=== PATIENT | male | born 1945 | race Caucasian/White ===

== ENCOUNTER → 2016-07-09 | Day surgery (SDC) | payer OTHER ==
[2016-07-04 07:52] VITALS: BMI 24.0
[~2016-07-09] VITALS: Ht 180.3 cm; Wt 79.1 kg
[~2016-07-09] MED LIST: ALL100 PO; ASPI81TA28 PO; ATOR-26 PO; FINA5TAB PO; GLC500 PO; GLIM4TAB2 PO; HYG/25 PO; LIDOCAINE HCL 2% 2 ML VIAL (20MG/ML) ONE; LISI40TA PO; METO100T44 PO; NTRGSL/4 UT; OMEP20CA9 PO; PROPOFOL IV EMULSION 10 MG/ML 20 ML VIAL IV ONE; SODIUM CHLORIDE 0.9% 500ML 500 ML IV ONE; TAMS0.4C38 PO
[2016-07-09 10:07] VITALS: Ht 180.3 cm; Wt 79.1 kg
--- NOTE | 2016-07-09 10:10 | Endo History and Physical ---
History & Physical Date of Service: July 09, 2016. Chief Complaint: Referring Physician: History of Present Illness 71 yo presenting for surveillance colonoscopy-no issues related to GI illnesses. Past Surgical History Hx Cardiac Surgery: Yes (HEART CATH-NO STENTS, RT/LEFT CAROTID ENDARTERECTOMY) Hx Internal Defibrillator: No Hx Pacemaker: No Hx Abdominal Surgery: No Hx of Implantable Prosthesis: No Hx Post-Op Nausea and Vomiting: No Hx Cancer Surgery: No Hx Thoracic Surgery: No Hx Orthopedic: No Hx Urinary Tract Surgery: No Family History None Social History Smoking Status: Former Smoker Hx Substance Use: No Hx Alcohol Use: No Allergies Coded Allergies: Aspirin (Verified Adverse Reaction, Mild, STOMACH UPSET, 07/04/16) No Known Allergies (Verified , 07/04/16) Current Medications Reported Home Medications Medications Dose Route/Sig Max Daily Dose Days Date Category Toprol-Xl (Metoprolol Succinate) 100 Mg Tabcr 150 Mg PO QAM 07/04/16 Reported Prilosec (Omeprazole) 20 Mg Cap 20 Mg PO DAILY PRN 07/04/16 Reported Nitrostat (Nitroglycerin) 0.4 Mg Tab 0.4 Mg UT PRN 07/04/16 Reported Glimepiride 4 Mg Tab 1 Tab PO BID 90 07/04/16 Reported Zestril (Lisinopril) 40 Mg Tab 40 Mg PO QAM 07/04/16 Reported Flomax (Tamsulosin Hcl) 0.4 Mg Cap 0.4 Mg PO QAM 07/04/16 Reported Proscar (Finasteride) 5 Mg Tab 5 Mg PO QAM 07/04/16 Reported Aspirin Ec (Aspirin) 81 Mg Tab 81 Mg PO QAM 10/04/14 Reported Lipitor (Atorvastatin Calcium) 80 Mg Tab 80 Mg PO HS 10/04/14 Reported Hygroton (Chlorthalidone) 25 Mg Tab 25 Mg PO QAM 10/04/14 Reported Zyloprim * (Allopurinol) 100 Mg Tab 100 Mg PO QAM 12/02/07 Reported Glucophage * (Metformin HCl) 1,000 Mg Tab 1,000 Mg PO BID 12/02/07 Reported Vital Signs Weight (Kilograms): 79.09 Height (Feet): 5 Height (Inches): 11 Physical Exam General Appearance: WD/WN, no apparent distress Respiratory/Chest: Respiratory effort: no dyspnea Auscultation: breath sounds normal, CTA except as noted, no wheezing Cardiovascular: Apical Impulse: not displaced Heart Auscultation: RRR, normal S1, normal S2 Abdomen: Bowel Sounds: normal Inspection & Palpation: soft, non-distended Assessment and Plan 71 yo presenting for f/u colonoscopy
--- NOTE | 2016-07-09 11:08 | GI REPORT ---
Procedure Date: 07/09/2016 10:29 AM Procedure: Colonoscopy Indications: High risk colon cancer surveillance: Personal history of colonic polyps Medicines: General Anesthesia Complications: No immediate complications. Estimated blood loss: None. Estimated Blood Loss: Estimated blood loss: none. Procedure: Pre-Anesthesia Assessment: - Pre-Anesthesia Assessment: - Prior to the procedure, a History and Physical was performed, and patient medications, allergies and sensitivities were reviewed. The patient's tolerance of previous anesthesia was reviewed. Please see [employer] for complete details. - The risks and benefits of the procedure and the sedation options and risks were discussed with the patient. All questions were answered and informed consent was obtained. - Patient identification and proposed procedure were verified prior to the procedure by the physician and the nurse. The procedure was verified in the pre-procedure area in the procedure room. After obtaining informed consent, the endoscope was passed carefully and meticuously under direct vision and only advanced when the lumen was clearly identified, C02 insuflation was utilized throughout the entirity of the procedure. Throughout the procedure, the patient's blood pressure, pulse, and oxygen saturations were monitored continuously. After I obtained informed consent, the scope was passed under direct vision. Throughout the procedure, the patient's blood pressure, pulse, and oxygen saturations were monitored continuously. The scope was introduced through the anus and advanced to the terminal ileum, with identification of the appendiceal orifice and IC valve. The colonoscopy was performed without difficulty. The patient tolerated the procedure well. The quality of the bowel preparation was good. Findings: Three sessile polyps were found in the ascending colon. The polyps were 3 to 5 mm in size. These polyps were removed with a cold snare. Resection and retrieval were complete. Three sessile polyps were found in the transverse colon. The polyps were 2 to 4 mm in size. These polyps were removed with a cold snare. Resection and retrieval were complete. A 3 mm polyp was found in the sigmoid colon. The polyp was sessile. The polyp was removed with a cold snare. Resection and retrieval were complete. Internal hemorrhoids were found during retroflexion. Multiple small-mouthed diverticula were found in the sigmoid colon. The exam was otherwise without abnormality on direct and retroflexion views. Impression: - Three 3 to 5 mm polyps in the ascending colon, removed with a cold snare. Resected and retrieved. - Three 2 to 4 mm polyps in the transverse colon, removed with a cold snare. Resected and retrieved. - One 3 mm polyp in the sigmoid colon, removed with a cold snare. Resected and retrieved. - Internal hemorrhoids. - Diverticulosis in the sigmoid colon. - The examination was otherwise normal on direct and retroflexion views. Recommendation: - Discharge patient to home (with escort). - Await pathology results. - Repeat colonoscopy in 3 years for surveillance based on pathology results. - Return to referring physician as previously scheduled. Damian Cee MD 07/09/2016 11:08:02 AM This report has been signed electronically. Note Initiated On: 07/09/2016 10:29 AM I attest to the content of the Intraoperative Record and orders documented therein, exceptions below
--- NOTE | 2016-07-09 11:09 | Discharge Instructions ---
Endoscopy Patient Instructions Date / Procedure(s) Performed July 09, 2016. Colonoscopy Allergy Information Coded Allergies: Aspirin (Verified Adverse Reaction, Mild, STOMACH UPSET, 07/04/16) No Known Allergies (Verified , 07/04/16) Discharge Date / Findings July 09, 2016. Multiple small polyps-all removed Medication Instructions Stopped Medication(s): METFORMIN LAST DOSE 07/06/16 Provider Instructions Activity Restrictions - No exercising or heavy lifting for 24 hours. - Do not drink alcohol the day of the procedure. - Do not drive a car or operate machinery until the day after the procedure. - Do not make any important decisions or sign important papers in 24 hours after the procedure. Following Day: - Return to full activity which may include returning to work/school. Diet Start your diet with liquids and light foods (jello, soup, juice, toast). Then eat your usual diet if not nauseated. Treatment For Common After Affects For mild abdominal pain, bloating, or excessive gas: - Rest - Eat lightly - Lie on right side Follow-Up Information Follow-up with DR ARELI VALENTINO as scheduled Anesthesia Information What You Should Know You have had a procedure that required some medicine to reduce anxiety and discomfort. This treatment is called moderate sedation. After receiving the treatment, you may be sleepy, but you will be able to breathe on your own. The effects of the treatment may last for several hours. Follow these instructions along with Activity/Diet recommendations noted above: * Do NOT do anything where dizziness or clumsiness would be dangerous. * Rest quietly at home today, then you can be up and about tomorrow. * Have a responsible person stay with you the rest of today. * You may have had an I.V. today. If so, you may take the dressing off later today. Recommendations Call your doctor if: * Trouble breathing * Continuous vomiting for more than 24 hours * Temperature above 101 degrees * Severe abdominal pain or bloating * Pain not relieved by pain medicine ordered * There is increased drainage or redness from any incision * A large amount of rectal bleeding greater than 2-3 tablespoons. (If you had a polyp/s removed or have hemorrhoids, a small amount of blood - from the rectum is to be expected.) * You have any unanswered questions or concerns. IN THE EVENT OF A SERIOUS EMERGENCY, GO TO THE NEAREST EMERGENCY ROOM Your discharge instructions were prepared by provider Damian Cee. Patient Instructions Signature Page Varinder Grace Patient (or Guardian) Signature/Date: I have read and understand the instructions given to me by my caregivers. Caregiver/RN/Doctor Signature/Date: The above-named patient and/or guardian has received patient instructions on this date. + Original Patient Signature Page (only) stays with chart. Please make copy for patient.
--- NOTE | 2016-07-09 11:31 | Anesthesiology Progress Note ---
Anesthesia Post Op Note Date & Time July 09, 2016 at 11:31 Vital Signs Pain Intensity: 0 Vital Signs Past 12 Hours Date Time Temp Pulse Resp B/P Pulse Ox O2 Delivery O2 Flow Rate FiO2 07/09/16 11:07 75 16 106/60 98 Room Air 07/09/16 10:15 36.7 85 20 179/82 98 Room Air Notes Mental Status: alert / awake / arousable, participated in evaluation Pt Amnestic to Procedure: Yes Nausea / Vomiting: adequately controlled Pain: adequately controlled Airway Patency, RR, SpO2: stable & adequate BP & HR: stable & adequate Hydration State: stable & adequate Anesthetic Complications: no major complications apparent
[2016-07-09 11:45] VITALS: BP 113/62; PULSE 76; O2SAT 95
== END | disposition home or self-care (01) ==
LOC: C.GI 09:39
PROVIDERS: ATTEND Internal Medicine
DX: Z12.11 Encounter for screening for malignant neoplasm of colon (principal); D12.2 Benign neoplasm of ascending colon; D12.3 Benign neoplasm of transverse colon; D12.5 Benign neoplasm of sigmoid colon; K64.8 Other hemorrhoids; K57.90 Diverticulosis of intestine, part unspecified, without perforation or abscess without bleeding; Z87.891 Personal history of nicotine dependence; Z86.010 Personal history of colon polyps

== ENCOUNTER 2024-04-30 16:09 | Inpatient (IN) ==
--- NOTE | 2024-04-30 16:45 | XRay Report ---
EXAM: Radiograph of the Chest 1 View INDICATION: Weakness TECHNIQUE: Frontal view of the chest. COMPARISON: No relevant prior studies available. FINDINGS: Lungs and pleural spaces: No consolidation or pulmonary edema. No pleural effusion or pneumothorax. Heart: Shape and configuration within normal limits allowing for technique. Mediastinum: Normal contour. Bones/joints: No fracture, erosion or dislocation. Soft tissues: No abnormality noted. No radiopaque foreign body noted. Vasculature: Ectatic calcified aorta. Upper abdomen: 1.4 cm nonspecific calcification noted in the right upper abdomen. IMPRESSION: 1. No acute cardiopulmonary disease. 2. Nonspecific calcification projects in the right upper quadrant. ACT 112: Negative or not required by law. Electronically signed by Xi Kumar 04-30-2024 4:45 PM
[2024-04-30 17:55] LABS: Basophils # (auto) 0.03 K/uL (0.00-0.20); Basophils % (auto) 0.3 %; Eosinophils # (auto) 0.02 K/uL (0.00-0.50); Eosinophils % (auto) 0.2 %; Hematocrit (blood only) 36.1 % (42.0-52.0); Hemoglobin 11.9 g/dl (14.0-18.0); Immature Granulocytes # (auto) 0.08 K/uL (0.01-0.20); Immature Granulocytes % (auto) 0.8 %; Lymphocytes # (auto) 0.79 K/uL (1.20-3.40); Lymphocytes % (auto) 8.2 %; Mean Corpuscular Volume 87.8 fL (80.0-100.0); Monocytes # (auto) 1.04 K/uL (0.11-0.59); Monocytes % (auto) 10.8 %; Neutrophils # (auto) 7.67 K/uL (1.40-6.50); Neutrophils % (auto) 79.7 %; Platelet Count 174 K/uL (130-400); RDW Coefficient of Variation 14.6 % (11.5-14.5); RDW Standard Deviation 47.1 fL (36.4-46.3); Red Blood Count 4.11 M/uL (4.70-6.10); White Blood Count 9.63 K/ul (4.8-10.8)
[2024-04-30 18:12] LABS: Alanine Aminotransferase 15 U/L (7-52); Albumin Globulin Ratio 1.2 (0.9-2); Albumin Level 3.8 gm/dl (3.4-5.0); Alkaline Phosphatase 101 U/L (34-104); Anion Gap 10 (3-11); Aspartate Aminotransferase 18 U/L (13-39); Bilirubin,Total 0.6 mg/dl (0.2-1.0); Blood Urea Nitrogen 51 mg/dl (6-23); Calcium 9.1 mg/dl (8.6-10.3); Carbon Dioxide 29 mmol/L (21-32); Chloride 96 mmol/L (98-107); Globulin 3.3 gm/dl (2.5-4.0); Glucose 394 mg/dl (70-99(Fasting)); Magnesium 1.6 mg/dl (1.7-2.4); Potassium 3.8 mmol/L (3.5-5.1); Sodium 135 mmol/L (136-145); Total Protein 7.1 gm/dl (6.0-8.3)
[2024-04-30 18:14] LABS: Troponin I High Sensitivity 12.7 pg/ml (0-20)
[2024-04-30 18:19] LABS: INR 1.1 (0.9-1.1); Partial Thromboplastin Time 26 Seconds (21-31); Prothrombin Time 11.5 Seconds (9.0-12.0)
[2024-04-30 18:24] LABS: Thyroid Stimulating Hormone 1.687 uIu/ml (0.300-4.500)
--- NOTE | 2024-04-30 19:03 | Emergency Department Note ---
Impression & Plan Weakness, Falls, Hyperglycemia due to type 2 diabetes mellitus, CKD (chronic kidney disease) ED Provider Note Provider: Lito Gurrola MD CHIEF COMPLAINT: Weakness and falls HISTORY OF PRESENT ILLNESS: Patient is a 79-year-old gentleman history of CKD, gout, diabetes, hypertension presenting here today with after multiple falls. Been having decline recently fell last week. 3 times fell today according to the difficulty getting up from a chair. Denies striking his head or loss of consciousness. Denies syncope. States he just felt weak and went to the ground. came over work and the patient could not get out of the chair he was in. PCP is ordered physical therapy with this can start for several weeks. Reports generalized weakness but no pain or shortness of breath or high fevers. No strikes to the head reported and no neck pain reported. He does follow with nephrology but not urinating much. reports the patient does not eat that well. No muscle cramps reported. Patient denies any dizziness or vertigo. Denies URI symptoms. PAST MEDICAL HISTORY: As noted above MEDICATIONS: Reviewed home medications SOCIAL HISTORY: lives at home PHYSICAL EXAM: GENERAL: alert and oriented in no acute distress on stretcher Head: normocephalic and atraumatic EYES: No injection, discharge or icterus. PERRL, EOMI. NECK: Trachea midline. Supple without posterior midline tenderness ENT: Mucous membranes pink and moist. LUNGS: Airway patent. No retractions. Breath sounds clear with good air entry bilaterally. HEART: Regular tachycardic rate and rhythm. No chest wall tenderness ABDOMEN: Soft and non-tender, without guarding or rebound. Stable pelvis without significant flank tenderness. SKIN: Acyanotic, warm, dry, without rashes EXTREMITIES: Without swelling, tenderness or deformity NEUROLOGICAL: No focal deficits moving all extremities. No aphasia. No facial droop or slurred speech. Normal strength and tone in the extremities. Sensation to gross touch normal. Able with some assistance to pivot and transfer from wheelchair to bed but somewhat unsteady. EK bpm sinus tachycardia. No PVC or PAC. No acute ST segment elevation or depression with a QTc of 441. CONTINUOUS CARDIAC MONITORING: was ordered and showed a heart rate of 90s-100s bpm in normal sinus rhythm to sinus tachycardia GCS 15. Patient's laboratory studies and imaging reviewed. Differential includes Infection, dehydration, metabolic abnormality, hypo/hyperglycemia, electrolyte disturbance, anemia, hypoxia, cardiac sources, intracerebral event, toxicologic, neurologic, as well as other pathologies. IMPRESSION/MEDICAL DECISION MAKING: From triage basic blood work ordered. No severe anemia or significant leukocytosis. No severe electrolyte abnormalities although creatinine is elevated at 2 today from baseline around 1.7 according to [facility] medical record. Very slight hypomagnesemia of 1.6. Normal troponin TSH and LFTs. Chest x-ray from triage without significant findings acutely noted by radiology report. Not hypoxic here. Chest x-ray completed reviewed by myself and interpreted as well as radiologist without findings of acute pneumonia pneumothorax or fluid overload. Mildly tachycardic. Do not see any clear infectious source although urinalysis is ordered and pending at this time. COVID flu RSV test is completed but denies URI symptoms. Will complete a CT of the head given the multiple falls and generalized weakness but does not seem that focal. CT head report from radiology without acute findings noted. Denies striking his head. On low-dose aspirin but no other significant blood thinners. Has been hyperglycemic. This was poor him take maybe leading to a bit of dehydration. Again given some IV fluids here. Given his weakness and multiple falls even just today while he does not have significant traumatic injury at this time, discussed with him and his staying for further evaluation here in physical therapy. Given IV hydration. No evidence of compartment syndrome or rhabdomyolysis. Patient agreeable. Hospitalist team contacted. DIAGNOSIS: Weakness, falls, hyperglycemia secondary to type 2 diabetes DISPOSITION: Hospitalist will evaluate Patient was agreeable with this plan. 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 JOSEPH Family History Mother Family history of diabetes mellitus Other No family history of adverse response to anesthesia Social History Smoking Status: Never smoker Cigarettes Per Day: 1997; Second Hand Exposure: No; Do You Dip or Chew Tobacco: No; Hx Alcohol Use: No Hx Substance Use: No Preferred Language: Uzbek Communication Ability: Effective [place] Cutter Operator Required: No Beliefs That Will Affect Care: None Current Living Situation: Spouse Feels Safe at Home: Yes Assistive Devices: Denture - Upper and Glasses Allergies Allergies Allergy/AdvReac Type Severity Reaction Status Date / Time aspirin AdvReac Mild STOMACH Verified 11/15/21 08:03 UPSET Home Meds Home Medications Medication Instructions Recorded Confirmed allopurinol 100 mg tablet 100 mg PO QAM 11/13/18 11/15/21 aspirin 81 mg tablet,delayed 81 mg PO QAM 11/13/18 11/15/21 release atorvastatin 80 mg tablet 80 mg PO HS 11/13/18 11/15/21 chlorthalidone 25 mg tablet 25 mg PO QAM 11/13/18 11/15/21 glipizide 5 mg tablet 5 mg PO QAM 11/13/18 11/15/21 lisinopril 40 mg tablet 40 mg PO QAM 11/13/18 11/15/21 metformin 1,000 mg tablet 1,000 mg PO BID 11/13/18 11/15/21 metoprolol succinate 100 mg 150 mg PO QAM 11/13/18 11/15/21 tablet,extended release 24 hr Previous Rx's Medication Instructions Recorded sodium sul 1.479 gram-potas ch See Rx Instructions PO .COMPLEX 11/06/21 0.188 gram-magnes sul 0.225 gram #24 tabs tablet (Sutab) Results & Data (ED) Vital Signs Vital Signs - 24 hr 04/30/24 16:15 Temperature 36.2 C L Temperature Source Temporal Artery Scan Pulse Rate 111 H Respiratory Rate 18 Respiratory Effort / Characteristics Non-Labored Spontaneous Respiratory Depth Normal Respiratory Pattern Regular Blood Pressure 154/71 H Blood Pressure Mean 98 Pulse Oximetry 95 Oxygen Delivery Method Room Air Sepsis Recent Fever Within 48 Hours No Sepsis New/Unexplained Change in Mental Status N/A Sepsis Action Taken by Nursing No Action Required Laboratory Data 04/30/24 17:30 04/30/24 17:30 Lab Results 04/30/24 Range/Units 17:30 WBC 9.63 (4.8-10.8) K/ul RBC 4.11 L (4.70-6.10) M/uL Hgb 11.9 L (14.0-18.0) g/dl Hct 36.1 L (42.0-52.0) % MCV 87.8 (80.0-100.0) fL MCH 29.0 (25.0-34.0) pg MCHC 33.0 (32.0-36.0) g/dL RDW Std Deviation 47.1 H (36.4-46.3) fL RDW Coeff of Christiane 14.6 H (11.5-14.5) % Plt Count 174 (130-400) K/uL MPV 10.0 (9.4-12.4) fL Immature Gran % (Auto) 0.8 % Neut % (Auto) 79.7 % Lymph % (Auto) 8.2 % Gentry % (Auto) 10.8 % Eos % (Auto) 0.2 % Baso % (Auto) 0.3 % Neut # (Auto) 7.67 H (1.40-6.50) K/uL Lymph # (Auto) 0.79 L (1.20-3.40) K/uL Gentry # (Auto) 1.04 H (0.11-0.59) K/uL Eos # (Auto) 0.02 (0.00-0.50) K/uL Baso # (Auto) 0.03 (0.00-0.20) K/uL Immature Gran # (Auto) 0.08 (0.01-0.20) K/uL PT 11.5 (9.0-12.0) Seconds INR 1.1 (0.9-1.1) APTT 26 (21-31) Seconds PTT Ratio 1.0 Sodium 135 L (136-145) mmol/L Potassium 3.8 (3.5-5.1) mmol/L Chloride 96 L (98-107) mmol/L Carbon Dioxide 29 (21-32) mmol/L Anion Gap 10 (3-11) BUN 51 H (6-23) mg/dl Creatinine 2.04 H (0.6-1.4) mg/dl Est Cr Clr Drug Dosing Not Reportable eGFR 32.14 BUN/Creatinine Ratio 25.0 H (10-20) Glucose 394 H* (70-99(Fasting)) mg/dl Calcium 9.1 (8.6-10.3) mg/dl Magnesium 1.6 L (1.7-2.4) mg/dl Total Bilirubin 0.6 (0.2-1.0) mg/dl AST 18 (13-39) U/L ALT 15 (7-52) U/L Alkaline Phosphatase 101 (34-104) U/L Troponin I High Sens 12.7 (0-20) pg/ml Total Protein 7.1 (6.0-8.3) gm/dl Albumin 3.8 (3.4-5.0) gm/dl Globulin 3.3 (2.5-4.0) gm/dl Albumin/Globulin Ratio 1.2 (0.9-2) TSH 1.687 (0.300-4.500) uIu/ml Imaging Data Radiologist's Impression: Chest X-Ray 04/30/24 16:20 EXAM: Radiograph of the Chest 1 View INDICATION: Weakness TECHNIQUE: Frontal view of the chest. COMPARISON: No relevant prior studies available. FINDINGS: Lungs and pleural spaces: No consolidation or pulmonary edema. No pleural effusion or pneumothorax. Heart: Shape and configuration within normal limits allowing for technique. Mediastinum: Normal contour. Bones/joints: No fracture, erosion or dislocation. Soft tissues: No abnormality noted. No radiopaque foreign body noted. Vasculature: Ectatic calcified aorta. Upper abdomen: 1.4 cm nonspecific calcification noted in the right upper abdomen. IMPRESSION: 1. No acute cardiopulmonary disease. 2. Nonspecific calcification projects in the right upper quadrant. ACT 112: Negative or not required by law. Electronically signed by Xi Kumar 04-30-2024 4:45 PM Discharge Plan Visit Data Chief Complaint: Weakness Stated Complaint: having problems standing and walking ED Provider: Lito Gurrola Discharge Problem: Weakness, Falls, Hyperglycemia due to type 2 diabetes mellitus, CKD (chronic kidney disease) Patient Disposition: Being Evaluated by Hospitalist Forms Stand Alone Forms: My [employer] Prescriptions Prescriptions: No Action Sutab 1.479-0.188- 0.225 gram tablet See Rx Instructions PO .COMPLEX Qty: 24 0RF Rx Instructions: Take per split dose instructions. PLEASE USE COUPON BIN: [id number] PCN: CN GROUP#: [id number] atorvastatin 80 mg Tablet 80 mg PO HS metoprolol succinate 100 mg Tablet Extended Release 24 Hr 150 mg PO QAM chlorthalidone 25 mg Tablet 25 mg PO QAM allopurinol 100 mg Tablet 100 mg PO QAM aspirin 81 mg Tablet,Delayed Release (Dr/Ec) 81 mg PO QAM metformin 1,000 mg Tablet 1,000 mg PO BID lisinopril 40 mg Tablet 40 mg PO QAM glipizide 5 mg Tablet 5 mg PO QAM Referrals Referrals: Bo Renteria MD [Primary Care Provider] -
[2024-04-30] MEDS: SODIUM CHLORIDE 0.9% 1,000 ML IV ONE (19:21)
[2024-04-30 19:25] LABS: Creatine Kinase 94 U/L (30-223)
--- NOTE | 2024-04-30 19:25 | CT Scan Report ---
EXAM: CT Head Without Intravenous Contrast INDICATION: Progressive weakness and falling. TECHNIQUE: Axial computed tomography images of the head/brain without intravenous contrast. Sagittal and/or coronal reformats are provided. Sagittal and coronal reformatted images were created and reviewed. This CT exam was performed using one or more of the following dose reduction techniques: automated exposure control, adjustment of the mA and/or kV according to patient size, and/or use of iterative reconstruction technique. COMPARISON: No relevant prior studies available. FINDINGS: Limitations: None. Brain and extra-axial spaces: There is age appropriate cortical atrophy and chronic ischemic periventricular white matter hypodensity. No acute infarct, hemorrhage or mass noted. Bones/joints: No acute changes. Soft tissues: No significant abnormality noted. Vasculature: There is atherosclerotic calcification of the intracranial vertebral and carotid arteries. Sinuses: No layering fluid in the visualized portions of the paranasal sinuses. Mastoid air cells: No mastoid effusion. Orbits: No significant abnormality noted. IMPRESSION: Cerebral atrophy. No acute changes. ACT 112: Negative or not required by law. Electronically signed by Xi Kumar 04-30-2024 7:25 PM
[2024-04-30] MEDS: MAGNESIUM SULFATE / D5W 1 GM/100 ML BAG IV SCH (20:07)
[2024-04-30] MEDS ORDERED: CARBOHYDRATES FOR HYPOGLYCEMIA PO PRN (20:40)
[2024-04-30] MEDS ORDERED: GLUCOSE 40% GEL 15 GM TUBE PO PRN (20:40)
[2024-04-30] MEDS ORDERED: GLUCAGON FOR INJ 1 MG VIAL SQ PRN (20:40)
[2024-04-30] MEDS ORDERED: DEXTROSE 50% 50 ML SYRINGE IV PRN (20:40)
[2024-04-30] MEDS ORDERED: MAGNESIUM HYDROXIDE SUSP 30 ML UDC PO PRN (20:40)
[2024-04-30] MEDS ORDERED: GLUCOSE 10 TAB/TUBE PO PRN (20:40)
[2024-04-30] MEDS ORDERED: POLYETHYLENE (MIRALAX) 17 GM PACK PO PRN (20:40)
[2024-04-30] MEDS ORDERED: PHARMACY GLYCEMIC MGMT CONSULT PRN (20:40)
[2024-04-30 20:58] LABS: Influenza A virus by PCR Negative (Neg); Influenza B virus by PCR Negative (Neg); RSV by PCR Negative (Neg); SARS CoV2 RNA(COVID-19) Ceph NEGATIVE (Negative)
--- NOTE | 2024-04-30 21:01 | History & Physical Report ---
Date of Service April 30, 2024 Assessment & Plan (1) Acute kidney injury superimposed on CKD: (2) Hyperglycemia due to type 2 diabetes mellitus: (3) Weakness: Plan Patient is a 79-year-old male with Past medical history of hypertension, type 2 diabetes mellitus since 2003, CAD with chronic total occlusion of LAD, carotid artery stenosis status post CEA 1997, dyslipidemia, BPH, gout who comes to the hospital with generalized weakness and multiple falls. Generalized weakness MOON on CKD Bladder outlet obstruction, history of BPH Possible complicated UTI Patient presents with generalized weakness and falls Creatinine of baseline of 1.6 in April 12, 2024; presents with creatinine of 2.04 CT headno acute finding Chest x-rayno acute findings Bladder scan revealed over 900 cc; plan to place [place]; obtain urine sample/blood culture ;start emperic antibiotics; follow-up on final culture and sensitivity. Consult urology in am; will start tamsulosin. IV fluids with NS at 80 cc/h for 1 L; hold Lasix and lisinopril PT OT evaluation; Uncontrolled type 2 diabetes mellitus HbA1c of 11.5 in April 2024; Hold home metformin; started on insulin and NovoLog certified adaptive physical educator consulted; to be seen if patient is is admitted till Friday. Otherwise follow-up with early childhood educator aide as outpatient that patient previously used to see. Goutcontinue allopurinol History of CAD with chronic total occlusion of LADcontinue on aspirin, Lipitor Hypertensioncontinue amlodipine and metoprolol; hold lisinopril and Lasix DVT prophylaxis heparin Full code Time spent evaluating patient, direct bedside care, chart review, placing orders, interpretation of diagnostic studies, discussion with consultants, patient, and family members, as well as other required patient management activities is 75 minutes Please note the above document was generated using voice recognition software. It may contain grammatical, syntax or spelling errors. Any formal questions or concerns about the content, text or information contained within the body of this dictation should be directly addressed to the provider for clarification History of Present Illness Chief Complaint: Generalized weakness for 1 week Mechanical fall for 1 day Primary Care Provider: Bo Renteria MD History obtained from chart review and interview with the patient Past medical history of hypertension, type 2 diabetes mellitus since 2003, CAD with chronic total occlusion of LAD, carotid artery stenosis status post CEA 1997, dyslipidemia, BPH, gout Patient came to the hospital with concern of generalized weakness ongoing for last 1 week. Patient reportedly had a mechanical fall due to imbalance last Friday; denies any injury/pain. Today, patient feels weaker; had multiple falls which prompted him to come to the ED He denies fever, chills, chest pain, shortness of breath, abdominal pain, visual disturbances, weakness/numbness of any body part. Social history; former smoker for 30 years; quit in 1997 Baseline creatinine of 1.6 in April 12, 2024 HbA1c of 11.5; in April 2024 Meds include allopurinol 100 mg once a day, metoprolol ER 100 mg 1 and half tablets, Lipitor 80 mg, amlodipine 5 mg, metformin 500 mg twice daily, Lasix 40 mg once a day, lisinopril 40 mg once a day, insulin glargine 35 units every evening, aspirin 81 mg once a day Allergies Allergy/AdvReac Type Severity Reaction Status Date / Time aspirin AdvReac Mild STOMACH Verified 11/15/21 08:03 UPSET Home Medications Medication Instructions Recorded Confirmed Type allopurinol 100 mg tablet 100 mg PO QAM 11/13/18 04/30/24 History aspirin 81 mg tablet,delayed 81 mg PO QAM 11/13/18 11/15/21 History release atorvastatin 80 mg tablet 80 mg PO HS 11/13/18 04/30/24 History lisinopril 40 mg tablet 40 mg PO QAM 11/13/18 04/30/24 History metoprolol succinate 100 mg 150 mg PO QAM 11/13/18 04/30/24 History tablet,extended release 24 hr amlodipine 5 mg tablet 5 mg PO QPM 04/30/24 04/30/24 History furosemide 40 mg tablet 40 mg PO QAM 04/30/24 04/30/24 History insulin glargine 100 unit/mL (3 35 unit subcut QPM 04/30/24 04/30/24 History mL) subcutaneous pen (Basaglar KwikPen U-100 Insulin) metformin 500 mg tablet 500 mg PO BID 04/30/24 04/30/24 History Past Med/Surg History Problem List (Updated 04/30/24 @ 20:50 by Carlos Tello MD) Acute kidney injury superimposed on CKD CKD (chronic kidney disease) (Acute) Hyperglycemia due to type 2 diabetes mellitus (Acute) Falls (Acute) Weakness (Acute) Hx of colonic polyps Encounter for pre-operative examination Recurrent right inguinal hernia Medical History (Updated 04/30/24 @ 20:50 by Carlos Tello MD) Chronic kidney disease stage 3 -- monitoring, [facility] (Dr Penaloza) Gout History of gastroesophageal reflux (GERD) Diabetes mellitus, type 2 niddm 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 JOSEPH Family History Mother Family history of diabetes mellitus Other No family history of adverse response to anesthesia Social History Smoking Status: Never smoker Cigarettes Per Day: 1997; Second Hand Exposure: No; Do You Dip or Chew Tobacco: No; Hx Alcohol Use: No Hx Substance Use: No Preferred Language: Macedonian Communication Ability: Effective Status Controller Required: No Beliefs That Will Affect Care: None Current Living Situation: Spouse Feels Safe at Home: Yes Assistive Devices: Denture - Upper and Glasses Review of Systems Review of Systems: All systems reviewed & are unremarkable except as noted in Subjective Physical Exam Physical Exam: Constitutional: Alert oriented x 3; appears slightly tired. Appropriately answering questions. Respiratory: Bilateral vesicular breath sound. Cardiovascular: RRR, no murmur, no edema Vessels: no JVD or carotid bruit Chest: normal inspection of chest Abdomen: normal bowel sounds, soft, nontender, no hepatosplenomegaly Musculoskeletal: no cyanosis or clubbing, extremities motor strength 5/5 Skin: no rashes, warm and dry normal turgor Neurologic: PERRLA, EOMI intact, no facial palsy, no dysarthria, cranial nerve intact. Strength in all extremity5/5; joint position sense of lower extremity abnormal. Results & Data Results & Data Vital Signs (Past 12 Hours) Vital Signs Temp Pulse Resp BP Pulse Ox O2 Del Method 04/30/24 19:21 96 H 04/30/24 16:15 36.2 C L 111 H 18 154/71 H 95 Room Air Code Status & VTE Plan VTE Prophylaxis Plan VTE Prophylaxis will be ordered: Yes
[2024-04-30 21:17] LABS: Appearance Urine Clear (Clear); Bacteria Urine Automated None Seen (None Seen); Bilirubin Urine Negative (Negative); Blood Urine 1+ (Negative); Calcium Oxalate Crystals Urine Present (None Prsent); Color Urine Yellow; Epithelial Cell Urine Auto 0-2 /hpf (0-2); Glucose Urine UA 3+ (Negative); Ketones Urine Negative (Negative); Leukocyte Esterase Urine Negative (Negative); Nitrite Urine Negative (Negative); Protein Urine 3+ (Negative); Specific Gravity Urine 1.017 (1.000-1.030); Urobilinogen Urine Negative (Negative); WBC Urine Automated 0-5 /hpf (0-5); pH Urine 5.5 (4.5-7.5)
[2024-04-30] MEDS: INSULIN ASPART PER UNIT CHARGE SC SCH (21:55)
[2024-04-30] MEDS: LANTUS PER UNIT CHARGE SQ SCH (21:55)
[2024-04-30] MEDS: SODIUM CHLORIDE 0.9% 1,000 ML IV SCH (22:01)
[2024-04-30] MEDS: ATORVASTATIN 40 MG TAB PO SCH (22:27)
[2024-04-30] MEDS: amLODIPine BESYLATE 5 MG TAB PO SCH (22:28)
--- OUTSIDE RECORDS SUMMARY | 2024-04-30 23:03 | External Medical Summary | Summary of Care ---
Author Name Unknown Organization [facility] Address [address] [place] [address] Phone [phone] Care Team Providers Care Dressing Room Porter Name Role Phone Bo Renteria MD Primary Care Provider [phone] Reason for Visit * Reason Onset Date Comments Test Results 04/14/2024 Encounter Details Date Type Department Care Team (Late st Contact Info) Description 04/14/2024 Telephone Nephrology[facility]par[facility] [address] [facility] [place] [address] Jacky Macdonald MD [address] [facility] [place] [address] Test Results Allergies Active Allergy Reactions Criticality Noted Date Comments Salicylates 02/09/2002 stomach upset documented as of this encounter (statuses as of 04/14/2024) Medications ASPIRIN EC 81 MG PO TBEC Take by mouth daily. Active Blood Glucose Monitoring Suppl ([employer] VERIO FLEX SYSTEM) w/Device KITIndications:T ype 2 diabetes mellitus with hemoglobin A1c goal of less than 8.0% ([facility]) Use as directed. 1 Kit 0 Active Nitroglycerin 0.4 MG Sublingual Tablet Sublingual (Nitrostat) Place under the tongue 1 Tablet every 5 minutes as needed for Pain, Chest. up to 3 doses in 15 minutes 25 Tablet 3 2 Active Diclofenac Sodium 1 % External Gel (Voltaren) Apply 2 g topically to affected area in the morning and 2 g before bedtime. Apply to right ankle. 2 g 3 Active Additional Information Patient not taking.Reported on 04/12/2024 OneTouch Delica Plus [id number] ions:Type 2 diabetes mellitus with hemoglobin A1c goal of less than 8.0% (HCC) test blood sugar once daily dx e11.9 100 Each 3 4 Active OneTouch Verio In Vitro Strip (Glucose Blood)Indication s:Type 2 diabetes mellitus with hemoglobin A1c goal of less than 8.0% (HCC) test blood sugar once daily dx e11.9 100 Strip 3 4 Active Insulin Glargine Solostar 100 UNIT/ML Subcutaneous Solution Pen-injector (Lantus SoloStar) Inject 35 Units under the skin every evening. E11.9 30 mL 5 4 Active Pen Buchanan 32G X 4 MMIndications:Ty pe 2 diabetes mellitus with hemoglobin A1c goal of less than 8.0% (HCC) Use as directed. Use to inject insulin four times daily E11.9 400 Each 3 4 Active Lisinopril 40 MG Oral TabletIndication s:Essential hypertension with goal blood pressure less than 140/90,Coronary artery disease involving [place] coronary artery of [place] heart without angina pectoris Take 1 Tablet by mouth in the morning. 90 Tablet 3 4 Active Furosemide 40 MG Oral Tablet (Lasix) Take 1 Tablet by mouth in the morning. 90 Tablet 3 4 Active metFORMIN HCl 500 MG Oral Tablet (Glucophage)Gabriela cations:Type 2 diabetes mellitus with hemoglobin A1c goal of less than 8.0% (HCC) Take 1 Tablet by mouth 2 times a day with morning and evening meals. 180 Tablet 3 4 Active amLODIPine Besylate 5 MG Oral Tablet (Norvasc)Indicat ions:Albuminuria ,Hypertension, unspecified type Take 1 tab daily at night 90 Tablet 3 4 Active Atorvastatin Calcium 80 MG Oral Tablet (Lipitor)Indicat ions:Chronic ischemic heart disease,Dyslipid emia, goal LDL below 70 Take 1 Tablet by mouth in the morning. 90 Tablet 1 4 Active Metoprolol Succinate ER 100 MG Oral Tablet Extended Release 24 Hour (toPROL XL)Indications:P alpitations take one and 1/2 tablet daily 135 Tablet 1 4 Active Allopurinol 100 MG Oral Tablet (Zyloprim) Take 1 Tablet by mouth in the morning. 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 Type 2 diabetes mellitus wit h hemoglobin A1c goal of less than 8.0% 09/15/2012 Overview (07/06/2015): ICD-10 update of inactive term S/P carotid endarterectomy 03/09/2009 Dyslipidemia 02/23/2009 Overview (02/23/2009): Per Lipid Taxonomy. HTN, goal below 130/80 documented as of this encounter (statuses as of 04/14/2024) Resolved Problems Problem Noted Date Diagnosed Date Resolved Date Type 2 diabetes mellitus wit h stage 3a chronic kidney disease, without long-term current use of insulin 06/28/2020 05/27/2022 Diabetes mellitus with stage 3 chronic kidney disease 03/20/2020 04/13/2020 Overview: Per CKD protocol Asymptomatic bilateral carot id artery stenosis 12/18/2016 06/24/2020 Toenail fungus 11/20/2015 11/18/2016 Coronary artery disease due to calcified coronary lesion 11/03/2014 11/18/2016 Coronary atherosclerosis 10/05/201412/2019 Abnormal stress echocardiogram 09/29/2014 12/19/2014 Pre-operative cardiovascular examination 09/20/2014 11/03/2014 Abnormal finding on EKG 09/20/201412/08 Preop examination 06/15/2014 12/19/2014 Dyslipidemia, goal LDL below 100 11/04/2012 05/18/2013 HTN, goal below 140/80 10/28/201109/14 Overview: Per HTN Protocol #27. Type 2 diabetes mellitus wit h hemoglobin A1c goal of 7.0%-8.0% 02/28/2011 09/15/2012 Overview (07/06/2015): ICD-10 update of inactive term AAA family hx 10/15/2010 11/18/2016 Other premature beats 04/20/20092013 Palpitations 03/09/2009 09/04/2017 Vertigo 03/09/2009 11/18/2016 HTN, GOAL BELOW 130/80 01/31/200910/30 Overview (01/31/2009): Modified per HTN protocol #16. Type 2 diabetes mellitus wit h hemoglobin A1c goal of less than 7.0% 01/05/2009 02/28/2011 Overview (07/04/2015): Per Diabetes Taxonomy. ICD-10 update of inactive term Benign neoplasm of colon 09/30/200801/2017 CHR ISCHEMIC HRT DIS NOS 10/03/200608/2014 Special screening for malign ant neoplasms, colon 09/30/2005 09/30/2008 Overview (09/30/2005): Colonoscopy 09/26/05--tubular adenoma, hyperplastic polyp--repeat 3-5 years BPH without obstruction/lowe r urinary tract symptoms 07/04/2005 09/14/2013 Gout 03/30/2003 06/24/2020 Esophageal reflux 11/13/2001 03/13/2018 Benign prostatic hyperplasia 11/13/2001 11/18/2016 Overview (12/09/2016): ICD-10 update of inactive term ICD-10 update of inactive term HYPERTENSION NOS 01/31/2009 Overview (01/31/2009): Modified per HTN protocol #16. INHIBITED SEX EXCITEMENT 10/2013 Mixed dyslipidemia 9 Overview (02/23/2009): Per Lipid Taxonomy. Type 2 diabetes mellitus wit h hemoglobin A1c goal of less than 7.0% 01/05/2009 Overview (07/04/2015): Per Diabetes Taxonomy. ICD-10 update of inactive term Type 2 diabetes mellitus wit h hemoglobin A1c goal of less than 8.0% 01/13/2014 Overview (07/06/2015): ICD-10 update of inactive term documented as of this encounter (statuses as of 04/14/2024) Immunizations Name Administration Dates Next Due COVID-19 mRNA, LNP-s, No Pre serve, 2-Dose Series (Moderna) 05/02/2020,04/04/2020 COVID-19, mRNA, LNP-s, PF, B ooster, 100mcg/0.5mg (Moderna) 02/06/2022,01/15/2021 Pneumococcal Conjugate Vacc, 13 Valent (Prevnar) 05/16/2016 Pneumococcal Polysaccharide PPV23 (Pneumovax) 01/09/2012,11/14/2005 Season Influenza, Quad, PF, Adjuvanted, 65+ Yrs, IM (FLUAD) 12/24/2019 Seasonal Influenza Vac., MDV , IM, 0.5 mL (Fluzone) 12/13/2013,11/19/2012,12/12/2011,12/20,12/28/2009,01/03/2009,01/11/2008 ,01/08/2007,01/14/2006 Seasonal Influenza, PF, 6 M & above, IM , (FluLaval or Fluzone) 12/24/2017,01/01/2017 Seasonal Influenza, Quadriva lent Hd (Fluzone Hd) 12/22/2020 Seasonal Influenza, Quadriva lent, No Preserve, IM 12/18/2015,12/19/2014 Seasonal Influenza, Trivalen t, Adjuvanted, 65+ YRS, PF, (Fluad) 12/10/2018 TDAP (age 10 and older)(Boostrix) 12/22/2017 TDAP, Age 7 and older, IM (Adacel) 09/09/2007 Varicella Zoster Vaccine (Adult) 05/14/2012 documented as of this encounter Social History Tobacco Use Types Packs/Day Years Used Date Smoking Tobacco: Former Cigarettes 1.5 30 0 10/16/1967 - 10/15/1997 Smokeless Tobacco: Never Comments:quit Alcohol Use Standard Drinks/Week Comments Yes 0 (1 standard drink = 0.6 oz pur e alcohol) rare PHQ-2 Answer Date Recorded PHQ Adult Total Score 0 08/13/2021 Hunger Vital Sign Answer Date Recorded Worried About Running Out of Food in the Last Ye ar Never true 09/28/2019 Ran Out of Food in the Last Year Never true 09/28/2019 Sex and Gender Information Value Date Recorded Sex Assigned at Male 09/28/2019 10:24 AM EDT Legal Sex Male 7:17 AM EST Gender Identity Male 09/28/2019 10:24 AM EDT Sexual Orientation Straight 09/28/2019 10 :24 AM EDT Occupation Industry Job Start Date Job End Date retired Not on file Not on file Not on file documented as of this encounter Miscellaneous Notes * Telephone Encounter - An Cabrera RN - 04/14/2024 9:24 AM EST ----- Message from Jacky Macdonald MD sent at 04/13/2024 12:19 PM EST ----- Even higher hemoglobin A1c. Significant proteinuria despite lisinopril 40. He would be a good candidate for Jardiance type of drugs if it is possible to do this. He is already losing good bit of weight so I am not sure doing Ozempic is a good choice here. Renal function abnormal but stable. Vitamin-D is slightly low and will corrected documented in this encounter Plan of Treatment Upcoming Encounters Date Type Department Care Team (Late st Contact Info) Description 07/08/2024 11:15 AM EDT Imaging Radiology [address] [place] [id number] 09/17/2024 3:30 PM EDT Office Visit Cardiology, [facility] [address] [phone] Piyush Kee PA-C [address] [phone] 12/08/2024 1:40 PM EDT Office Visit Dermatology [address] [place] [address] Miranda Zamora PA-C [address] [place] [address] [place] [address] 12/22/2024 4:00 PM EDT Office Visit Nephrology, [facility] [address] [facility] [place] [address] Jacky Macdonald MD [address] [facility] [place] [address] Health Maintenance Due Date Last Done Comments Adult Wellness Visit 08/13/2022 08/13/2021, 04/21/19 21 Depression Screening 08/13/2022 08/13/2021 B-12 09/26/2023 09/25/2022, 02/08, 09/21/2019, Additional history exists COVID-19 Vaccine ( season) 2023 02/06/2022, 01/15/2021, 05/02/2020, Additional history exists Influenza Vaccine (FLU shot) (#1) 2023 04/24/2023, 01/20/2023, 12/28/2021, Additional history exists Diabetic Foot Exam 09/08/2024 09/09/2023, 0 05/27/2022, 08/13/2021, Additional history exists Diabetic Eye Exam 09/29/2024 09/30/2023, , 01/11/2021, Additional history exists GFR 10/10/2024 04/12/2024, 05/3 , 07/08/2023, Additional history exists HbA1c 10/10/2024 04/12/2024, 07/0 11/2023, 07/08/2023, Additional history exists Colonoscopy 11/15/2024 11/15/2021, 05/0 04/2016, 11/29/2008, Additional history exists Albumin/Creatinine Ratio 04/12/2025 025, 07/08/2023, 11/28/2021, Additional history exists CKD HGB USE SMARTSET 52128 04/12/202504/12, 04/12/2024, 09/16/2023, Additional history exists CKD PHOS USE SMARTSET 46978 04/12/2025 02/0 05/2024, 08/07/2023, 11/29/2022, Additional history exists DTap/Tdap Vaccines (3 - Td or Tdap) 12/23/2027 12/22/2017, 09/09/2007 Pneumococcal Vaccine: 50+ Years Completed 05/16/2016, 01/09/2012, 11/14/2005 HPV (Gardasil) Vaccine Aged Out No lo nger eligible based on patient's age to complete this topic Hepatitis B Vaccine Aged Out No longe r eligible based on patient's age to complete this topic MENINGOCOCCAL (MENACTRA/MENVEO) Aged Out No longer eligible based on patient's age to complete this topic documented as of this encounter Medical Devices Not on filedocumented as of this encounter Advance Directives Documents on File Type Date Recorded Patient 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
--- OUTSIDE RECORDS SUMMARY | 2024-04-30 23:04 | External Medical Summary | Summary of Care ---
Author Name Unknown Organization [facility] Address [address] [place] [address] Phone [phone] Care Team Providers Care Wildlife Refuge Specialist Name Role Phone Bo Renteria MD Primary Care Provider [phone] Reason for Visit * Reason Comments Outpatient Testing Encounter Details Date Type Department Care Team (Late st Contact Info) Description 04/12/2024 3:20 PM EST Laboratory Laboratory [facility] [address] [place] [address] [facility] [address] [place] [id number] Stage 3b chronic kidney disease (HCC); Type 2 diabetes mellitus with hemoglobin A1c goal of less than 8.0% ([facility]); Proteinuria, unspecified type Allergies Active Allergy Reactions Criticality Noted Date Comments Salicylates 02/09/2002 stomach upset documented as of this encounter (statuses as of 04/13/2024) Medications ASPIRIN EC 81 MG PO TBEC Take by mouth daily. Active Blood Glucose Monitoring Suppl (CircuLite VERIO FLEX SYSTEM) w/Device KITIndications:T ype 2 diabetes mellitus with hemoglobin A1c goal of less than 8.0% ([facility]) Use as directed. 1 Kit 0 Active [...] Additional Information Patient not taking.Reported on 04/12/2024 WebCurfewTouch Delmaru Plus [id number] ions:Type 2 diabetes mellitus with hemoglobin A1c [...] E11.9 30 mL 5 4 Active Pen [place] 32G X 4 MMIndications:Ty pe 2 diabetes mellitus with hemoglobin A1c goal of less than 8.0% (HCC) Use as directed. Use to inject insulin four times daily E11.9 400 Each 3 4 Active Lisinopril 40 MG Oral TabletIndication s:Essential hypertension with goal blood pressure less than 140/90,Coronary artery disease involving mashpee coronary artery of mashpee heart without angina pectoris Take 1 Tablet [...] as of this encounter (statuses as of 04/13/2024) Active Problems Problem Noted Date Diagnosed Date Gouty arthropathy 11/29/2022 Stage 3b chronic kidney disease 05/27/2022 Coronary artery disease invo lving mashpee coronary artery of mashpee heart without angina pectoris 03/19/2019 BPH with [...] as of this encounter (statuses as of 04/13/2024) Resolved Problems Problem Noted Date Diagnosed Date [...] as of this encounter (statuses as of 04/13/2024) Immunizations Name Administration Dates Next Due COVID-19 [...] on file documented as of this encounter Plan of Treatment Upcoming Encounters Date Type Department Care Team (Late st Contact Info) Description 07/08/2024 11:15 AM EDT Imaging Radiology [address] [place] [address] 09/17/2024 3:30 PM EDT [facility] [address] [facility] [place] [address] Piyush Kee PA-C [address] [place] [address] 12/08/2024 1:40 PM EDT Office Visit Dermatology [address] [place] [address] Miranda Zamora PA-C [address] [place] [address] [place] [address] 12/22/2024 4:00 PM EDT [facility] [address] [facility] [place] [address] Jacky Macdonald MD [address] [place] [address] Health Maintenance Due Date Last Done Comments Adult Wellness Visit 08/13/2022 08/13/2021, 04/21/19 21 Depression Screening 08/13/2022 08/13/2021 B-12 09/26/2023 09/25/2022, 12/11/2020, 09/21/2019, Additional history exists COVID-19 Vaccine ( season) 2023 02/06/2022, 01/15/2021, 05/02/2020, Additional history exists Influenza Vaccine (FLU shot) (#1) 2023 04/24/2023, 01/20/2023, 12/28/2021, Additional history exists GFR 02/07/2024 04/12/2024, 07/10, 07/08/2023, Additional history exists Albumin/Creatinine Ratio 07/07/2024 025, 07/08/2023, 11/28/2021, Additional history exists CKD PHOS USE SMARTSET 87776 08/06/2024 02/0 05/2024, 08/07/2023, 11/29/2022, Additional history exists Diabetic Foot Exam 09/08/2024 09/09/2023, 0 05/27/2022, 08/13/2021, Additional history exists Diabetic Eye Exam 09/29/2024 09/30/2023, , 01/11/2021, Additional history exists HbA1c 10/10/2024 04/12/2024, 07/0 11/2023, 07/08/2023, Additional history exists Colonoscopy 11/15/2024 11/15/2021, 05/0 04/2016, 11/29/2008, Additional history exists CKD HGB USE SMARTSET 98284 04/12/202504/12, 04/12/2024, 09/16/2023, Additional history exists DTap/Tdap Vaccines (3 - [...] Not on filedocumented as of this encounter Procedures Procedure Name Priority Date/Time Associated Diagnosis Comments PROTEIN/ CREATININE RATIO, URINE Routine 04/12/2024 3:28 PM EST Stage 3b chronic kidney disease (HCC) URINALYSIS WITH MICROSCOPIC EXAM Routine 04/12/2024 3:28 PM EST Stage 3b chronic kidney disease (HCC) ALBUMIN / CREATININE RATIO, URINE Routine 04/12/2024 3:28 PM EST Stage 3b chronic kidney disease (HCC) Proteinuria, unspecified type DIFFERENTIAL, AUTOMATED Routine 04/12/2024 3:26 PM EST Stage 3b chronic kidney disease (HCC) 25-HYDROXY VITAMIN D Routine 04/12/2024 3:26 PM EST Stage 3b chronic kidney disease (HCC) HEMOGLOBIN A1C Routine 04/12/2024 3:26 PM EST Stage 3b chronic kidney disease (HCC) Type 2 diabetes mellitus with hemoglobin A1c goal of less than 8.0% (HCC) RENAL FUNCTION PANEL Routine 04/12/2024 3:26 PM EST Stage 3b chronic kidney disease (HCC) CBC Routine 04/12/2024 3:26 PM EST Stage 3b chronic kidney disease (HCC) PTH Routine 04/12/2024 3:26 PM EST Stage 3b chronic kidney disease (HCC) CBC Routine 04/12/2024 3:26 PM EST Stage 3b chronic kidney disease (HCC) DIFFERENTIAL, TECHNOLOGIST REVIEW Routine 04/12/2024 3:26 PM EST Stage 3b chronic kidney disease (HCC) MAGNESIUM Routine 04/12/2024 3:26 PM EST Stage 3b chronic kidney disease (HCC) documented in this encounter Results * (ABNORMAL) ALBUMIN / CREATININE RATIO, URINE (04/12/2024 3:28 PM EST) Albumin, Random Urine 148.00 mg/dL 04/13/2024 5:15 AM EST [facility] Creatinine, Random Urine 55 mg/dL 04/13/2024 5:15 AM EST [facility] Albumin / Creatinine Ratio, Urine 2,691(H) <30 mg/g Creat 04/13/2024 5:15 AM EST [facility] Urine Urine specimen obtained by clean catch procedure / Unknown Non-blood Collection / Unknown 04/12/2024 3:28 PM EST 04/12/2024 3:28 PM EST Narrative [facility] - 04/13/2024 5:15 AM EST Normal: <30 mg/g creatinine High: 30-300 mg/g creatinine Very High: >300 mg/g creatinine Nephrotic: >2200 mg/g creatinine us Jacky Macdonald MD LAB URINE ORDERABLES Final Res ult Performing Organization Address City/State/[facility] Co de Phone Number [facility] [address] [place] [address] * (ABNORMAL) URINALYSIS WITH MICROSCOPIC EXAM (04/12/2024 3:28 PM EST) Color, Urine Light Yellow Colorless, Light Yellow, Yellow, Dark Yellow 04/13/2024 6:15 AM EST [facility] Clarity, Urine Clear Clear 04/13/2024 6:15 AM EST [facility] Glucose, Urine >=1000(A) Negative mg/dL 04/13/2024 6:15 AM EST [facility] Bilirubin, Urine Negative Negative 04/13/2024 6:15 AM EST [facility] Ketone, Urine Negative Negative mg/dL 04/13/2024 6:15 AM EST [facility] Specific [place], Urine 1.014 1.003 - 1.030 04/13/2024 6:15 AM EST [facility] Blood, Urine Small(A) Negative 04/13/2024 6:15 AM EST [facility] pH, Urine 6.5 5.0 - 7.5 Units 04/13/2024 6:15 AM EST [facility] Protein, Urine 100(A) Negative mg/dL 04/13/2024 6:15 AM EST [facility] Urobilinogen, Urine Normal Normal mg/dL 04/13/2024 6:15 AM EST [facility] Nitrite, Urine Negative Negative 04/13/2024 6:15 AM EST [facility] Esterase, Urine Negative Negative 04/13/2024 6:15 AM EST [facility] RBC, Urine 6-9(A) 0 - 2 /HPF 04/13/2024 6:15 AM EST [facility] WBC, Urine 0-2 0 - 2 /HPF 04/13/2024 6:15 AM EST [facility] Bacteria, Urine 0-25 0 - 25 /HPF 04/13/2024 6:15 AM EST [facility] Hyaline, Cast, Urine 1-4(A) None /LPF 04/13/2024 6:15 AM EST [facility] Urine Non-blood Collection / Unknown 04/12/2024 3:28 PM EST 04/12/2024 3:28 PM EST us Jacky Macdonald MD LAB URINE ORDERABLES Final Res ult [facility] [address] [place] [address] * (ABNORMAL) PROTEIN/ CREATININE RATIO, URINE (04/12/2024 3:28 PM EST) Protein/ Creatinine Ratio, Urine 4,698(H) <150 mg/g 04/13/2024 6:02 AM EST [facility] Protein, Random Urine 249 mg/dL 04/13/2024 6:02 AM EST [facility] Creatinine, Random Urine 53 mg/dL 04/13/2024 6:02 AM EST [facility] Urine Non-blood Collection / Unknown 04/12/2024 3:28 PM EST 04/12/2024 3:28 PM EST Narrative [facility] - 04/13/2024 6:02 AM EST Normal: <150 mg/g creatinine High: 150-500 mg/g creatinine Very High: >500 mg/g creatinine Nephrotic: >3000 mg/g creatinine us Jacky Macdonald MD LAB URINE ORDERABLES Final Res ult [facility] [address] [place] [address] * DIFFERENTIAL, TECHNOLOGIST REVIEW (04/12/2024 3:26 PM EST) Pathologist [facility] 04/12/2024 3:46 PM EST [facility] 56-02 Blood Venous blood specimen / Unknown Venipuncture / Unknown 04/12/2024 3:26 PM EST 04/12/2024 3:26 PM EST us Jacky Macdonald MD LAB BLOOD ORDERABLES Final Res ult [facility] 56-02 [address] [place] [address] * (ABNORMAL) DIFFERENTIAL, AUTOMATED (04/12/2024 3:26 PM EST) WBC 4.94 4.00 - 10.80 K/uL 04/12/2024 3:46 PM EST [facility] [place] 56-02 Neutrophils % 71.1 40.0 - 75.0 % 04/12/2024 3:46 PM EST [facility] [place] 56-02 Lymphocytes % 16.4(L) 18.0 - 42.0 % 04/12/2024 3:46 PM EST [facility] [place] 56-02 Monocytes % 9.5 1.0 - 11.0 % 04/12/2024 3:46 PM EST [facility] [place] 56-02 Eosinophils % 2.4 0.0 - 6.0 % 04/12/2024 3:46 PM EST [facility] [place] 56-02 Basophils % 0.6 0.0 - 2.0 % 04/12/2024 3:46 PM EST [facility] [place] 56-02 Absolute Neutrophils 3.51 1.80 - 7.70 K/uL 04/12/2024 3:46 PM EST [facility] 56-02 Absolute Lymphocytes 0.81(L) 1.00 - 4.80 K/ul 04/12/2024 3:46 PM EST [facility] 56 Absolute Monocytes 0.47 0.00 - 1.10 K/uL 04/12/2024 3:46 PM EST [facility] Absolute Eosinophils 0.12 0.00 - 0.70 K/uL 04/12/2024 3:46 PM EST [facility] 56 Absolute Basophils 0.03 0.00 - 0.20 K/uL 04/12/2024 3:46 PM EST [facility] 56 Blood Venous blood specimen / Unknown Venipuncture / Unknown 04/12/2024 3:26 PM EST 04/12/2024 3:26 PM EST us Jacky Macdonald MD LAB BLOOD ORDERABLES Final Res ult [facility] [address] [place] [id number] * (ABNORMAL) CBC (04/12/2024 3:26 PM EST) WBC 4.94 4.00 - 10.80 K/uL 04/12/2024 3:46 PM EST [facility] RBC 4.05 4.50 - 5.25 M/uL 04/12/2024 3:46 PM [facility] HGB 11.9(L) 14.0 - 16.8 g/dL 04/12/2024 3:46 PM [facility] HCT 36.7(L) 40.0 - 48.4 % 04/12/2024 3:46 PM [facility] MCV 90.6 82.0 - 99.5 fL 04/12/2024 3:46 PM EST [facility] 56 MCH 29.4 27.0 - 34.0 pg 04/12/2024 3:46 PM [facility] MCHC 32.4 32.0 - 36.0 g/dL 04/12/2024 3:46 PM EST [facility] 56 RDW 14.6 11.5 - 15.5 % 04/12/2024 3:46 PM EST [facility] 56-02 PLT 137(L) 140 - 400 K/uL 04/12/2024 3:46 PM EST [facility] [place] 56-02 MPV 9.2 6.6 - 11.1 fL 04/12/2024 3:46 PM EST [facility] [place] 56-02 Blood Venous blood specimen / Unknown Venipuncture / Unknown 04/12/2024 3:26 PM EST 04/12/2024 3:26 PM EST us Jacky Macdonald MD LAB BLOOD ORDERABLES Final Res ult [facility] 56-02 [address] [place] [address] * MAGNESIUM (04/12/2024 3:26 PM EST) Magnesium 1.6 1.5 - 2.6 mg/dL 04/13/2024 6:02 AM EST [facility] Blood Venous blood specimen / Unknown Venipuncture / Unknown 04/12/2024 3:26 PM EST 04/12/2024 3:26 PM EST us Jacky Macdonald MD LAB BLOOD ORDERABLES Final Res ult [facility] [address] [place] [address] * (ABNORMAL) 25-HYDROXY VITAMIN D (04/12/2024 3:26 PM EST) 25-Hydroxy Vitamin D 16(L) >19 ng/mL 04/13/2024 6:02 AM EST [facility] Blood Venous blood specimen / Unknown Venipuncture / Unknown 04/12/2024 3:26 PM EST 04/12/2024 3:26 PM EST Narrative [facility] - 04/13/2024 6:02 AM EST Deficient: <20 ng/mL Insufficient: 20-29 ng/mL Recommended/Optimum:30-50 ng/mL Vitamin D intoxication is rare. If suspicious of Vitamin D toxicity, evaluation of serum Calcium and PTH is recommended. Jacky Macdonald MD LAB BLOOD ORDERABLES Final Res ult [facility] [address] [place] [address] * (ABNORMAL) RENAL FUNCTION PANEL (04/12/2024 3:26 PM EST) BUN 30(H) 6 - 20 mg/dL 04/13/2024 6:01 AM EST [facility] CREATININE 1.6(H) 0.6 - 1.2 mg/dL 04/13/2024 6:01 AM EST [facility] EGFR 44(L) >=60 mL/min 04/13/2024 6:01 AM EST [facility] Comment:eGFR is calculated b ased on the CKD-EPI 2020 equation. SODIUM 138 135 - 146 mmol/L 04/13/2024 6:01 AM EST [facility] POTASSIUM 4.1 3.5 - 5.1 mmol/L 04/13/2024 6:01 AM EST [facility] CHLORIDE 95(L) 98 - 107 mmol/L 04/13/2024 6:01 AM EST [facility] CO2 32 22 - 32 mmol/L 04/13/2024 6:01 AM EST [facility] ANION GAP 11 7 - 15 mmol/L 04/13/2024 6:01 AM EST [facility] GLUCOSE 397(H) 70 - 120 mg/dL 04/13/2024 6:01 AM EST [facility] CALCIUM 8.9 8.4 - 10.2 mg/dL 04/13/2024 6:01 AM EST [facility] Albumin 3.8 3.8 - 5.0 g/dL 04/13/2024 6:01 AM EST [facility] Phosphorus 2.9 2.5 - 4.8 mg/dL 04/13/2024 6:01 AM EST [facility] Blood Venous blood specimen / Unknown Venipuncture / Unknown 04/12/2024 3:26 PM EST 04/12/2024 3:26 PM EST Jacky Macdonald MD LAB BLOOD ORDERABLES Final Res ult [facility] [address] [place] [address] * (ABNORMAL) PTH (04/12/2024 3:26 PM EST) PTH 103(H) 15 - 65 pg/mL 04/13/2024 6:02 AM EST [facility] Blood Venous blood specimen / Unknown Venipuncture / Unknown 04/12/2024 3:26 PM EST 04/12/2024 3:26 PM EST Jacky Macdonald MD LAB BLOOD ORDERABLES Final Res ult Performing Organization Address [facility] Co de Phone Number [facility] [address] [place] [address] * (ABNORMAL) HEMOGLOBIN A1C (04/12/2024 3:26 PM EST) Hemoglobin A1C 11.5(H) 4.0 - 5.6 % 04/13/2024 4:14 AM EST [facility] Comment:The use of HbA1c to monitor glycemic status is based on normal hemoglobin and HbA composition. This test should not be used in patients with abnormal hemoglobin that affects the half life of the red blood cell or the in vivo glycation rates. Estimated Average Glucose 283(H) <126 mg/dL 04/13/2024 4:14 AM EST [facility] Blood Venous blood specimen / Unknown Venipuncture / Unknown 04/12/2024 3:26 PM EST 04/12/2024 3:26 PM EST Jacky Macdonald MD LAB BLOOD ORDERABLES Final Res ult [facility] [address] [place] [address] documented in this encounter Visit Diagnoses Diagnosis Stage 3b chronic kidney disease (HCC) Type 2 diabetes mellitus with hemoglobin A1c goal of less than 8.0% (HCC) Proteinuria, unspecified type documented in this encounter Advance Directives Documents on File Type Date Recorded Patient Certified Medical Technician Assistant Expl anation Advance Directives and Kenan henriquez Will 07/12/2011 ADVANCE DIRECTIVE Power of Outreach Rep 07/12/2011 POWER OF A TTORNEY Care Teams Wildlife Refuge Specialist Relationship Specialty Start Date End Date Bo Renteria MD [address] [place] [address] PCP - General Family Medicine 06/22/20 documented as of this encounter
--- OUTSIDE RECORDS SUMMARY | 2024-04-30 23:04 | External Medical Summary ---
Author Name Unknown Address Unknown Organization K01:[facility] - [address] [place] [address] Laboratory Report Ordering Provider Test Date Status CLARICE ULLOA 04/12/2024 15:26:41 Final Observation Date Value Abnormality Reference (Units ) Status Magnesium 04/12/2024 15:26:41 1.6 1.5-2.6 (m g/dL) Final Performing Location [facility] - [address] [place] [address]
--- OUTSIDE RECORDS SUMMARY | 2024-04-30 23:04 | External Medical Summary ---
Author Name Unknown Address Unknown Organization K01:[facility] - [address] [facility] [address] Laboratory Report Ordering Provider Test Date Status CLARICE ULLOA 04/12/2024 15:28:33 Final Observation Date Value Abnormality Reference (Units ) Status Color of Urine by Auto 04/12/2024 15:28:33 Light Yellow Colorless, Light Yellow, Yellow, Dark Yellow Final Clarity, Urine 04/12/2024 15:28:33 Clear Clear Final Glucose [Mass/volume] in Urine by Automated test strip 04/12/2024 15:28:33 >=1000 Abnormal Negative (mg/dL) Final Bilirubin.total [Presence] in Urine by Automated test strip 04/12/2024 15:28:33 Negative Negative Final Ketones [Mass/volume] in Urine by Automated test strip 04/12/2024 15:28:33 Negative Negative (mg/dL) Final Specific gravity, Urine 04/12/2024 15:28:33 1.014 1.003-1.030 Final Hemoglobin [Presence] in Urine by Automated test strip 04/12/2024 15:28:33 Small Abnormal Negative Final pH, Urine 04/12/2024 15:28:33 6.5 5.0-7.5 (Units) Final Protein [Mass/volume] in Urine by Automated test strip 04/12/2024 15:28:33 100 Abnormal Negative (mg/dL) Final Urobilinogen [Mass/volume] in Urine by Automated test strip 04/12/2024 15:28:33 Normal Normal (mg/dL) Final Nitrite [Presence] in Urine by Automated test strip 04/12/2024 15:28:33 Negative Negative Final Leukocyte esterase [Presence] in Urine by Automated test strip 04/12/2024 15:28:33 Negative Negative Final RBC, Urine 04/12/2024 15:28:33 6-9 Abnormal 0-2 (/HPF) Final WBC, Urine 04/12/2024 15:28:33 0-2 0-2 (/HPF) Final Bacteria [#/area] in Urine sediment by Microscopy high power field 04/12/2024 15:28:33 0-25 0-25 (/HPF) Final Hyaline casts, Urine 04/12/2024 15:28:33 1-4 Abnormal None (/LPF) Final Performing Location [facility] - [facility] [address] [facility] [address]
--- OUTSIDE RECORDS SUMMARY | 2024-04-30 23:04 | External Medical Summary | Summary of Care ---
Author Name Unknown Organization [facility] Address [address] [place] [facility] [place] [address] Phone [phone] Care Team Providers Care Filter Tip Inspector Name Role Phone Bo Renteria MD Primary Care Provider [phone] Reason for Visit * Reason Onset Date Comments Health Maintenance 03/31/2024 Encounter Details Date Type Department Care Team (Late st Contact Info) Description 03/31/2024 Telephone Family Practice [facility] [address] [place] [address] Bo Renteria MD [address] [place] [address] Health Maintenance Allergies Active Allergy Reactions Criticality Noted Date Comments Salicylates 02/09/2002 stomach upset documented as of this encounter (statuses as of 03/31/2024) Medications ASPIRIN EC 81 MG PO TBEC Take by mouth daily. Active Blood Glucose Monitoring Suppl (Orbital Traction VERIO FLEX SYSTEM) w/Device KITIndications:Ty pe 2 diabetes mellitus with hemoglobin A1c goal of less than 8.0% ([facility]) Use as directed. 1 Kit 0 Active [...] to right ankle. 2 g 3 Active OneTouch Delica Plus [id number] ons:Type 2 diabetes mellitus with hemoglobin A1c goal of less than 8.0% (HCC) test blood sugar once daily dx e11.9 100 Each 3 4 Active OneTouch Verio In Vitro Strip (Glucose Blood)Indications :Type 2 diabetes mellitus with hemoglobin A1c goal of less than 8.0% (HCC) test blood sugar once daily dx e11.9 100 Strip 3 4 Active Insulin Glargine Solostar 100 UNIT/ML Subcutaneous Solution Pen-injector (Lantus SoloStar) Inject 35 Units under the skin every evening. E11.9 30 mL 5 4 Active Pen [place] 32G X 4 MMIndications:Typ e 2 diabetes mellitus with hemoglobin A1c goal of less than 8.0% (HCC) Use as directed. Use to inject insulin four times daily E11.9 400 Each 3 4 Active Lisinopril 40 MG Oral TabletIndications :Essential hypertension with goal blood pressure less than 140/90,Coronary artery disease involving [place] coronary artery of [place] heart without angina pectoris Take 1 Tablet by mouth in the morning. 90 Tablet 3 4 Active Furosemide 40 MG Oral Tablet (Lasix) Take 1 Tablet by mouth in the morning. 90 Tablet 3 4 Active metFORMIN HCl 500 MG Oral Tablet (Glucophage)Indic ations:Type 2 diabetes mellitus with hemoglobin A1c goal of less than 8.0% (HCC) Take 1 Tablet by mouth 2 times a day with morning and evening meals. 180 Tablet 3 4 Active amLODIPine Besylate 5 MG Oral Tablet (Norvasc)Indicati ons:Albuminuria,H ypertension, unspecified type Take 1 tab daily at night 90 Tablet 3 4 Active Atorvastatin Calcium 80 MG Oral Tablet (Lipitor)Indicati ons:Chronic ischemic heart disease,Dyslipide ignacia, goal LDL below 70 Take 1 Tablet by mouth in the morning. 90 Tablet 1 4 Active Metoprolol Succinate ER 100 MG Oral Tablet Extended Release 24 Hour (toPROL XL)Indications:Pa lpitations take one and 1/2 tablet daily 135 Tablet 1 4 Active Allopurinol 100 MG Oral Tablet (Zyloprim) Take 1 Tablet by mouth in the morning. 90 Tablet 1 4 Active documented as of this encounter (statuses as of 03/31/2024) Active Problems Problem Noted Date Diagnosed Date Gouty arthropathy 11/29/2022 Stage 3b chronic kidney disease 05/27/2022 Coronary artery disease invo lving [place] coronary artery of [place] heart without angina pectoris 03/19/2019 BPH with [...] as of this encounter (statuses as of 03/31/2024) Resolved Problems Problem Noted Date Diagnosed Date [...] as of this encounter (statuses as of 03/31/2024) Immunizations Name Administration Dates Next Due COVID-19 [...] encounter Miscellaneous Notes * Telephone Encounter - Adrianne ThaoDELMA - 03/31/2024 9:57 AM EST Care Gaps Comprehensive Care Outreach Last Office/Telemedicine Visit: 03/16/2024 (in office), Visit date not found (telemedicine) Next Office Visit: Visit date not found Hemoglobin AIC Results: Lab Results Component Value Date/Time HEMOGLOBIN A1C - [facility] 9.8 (H) 09/16/2023 10:37 AM HEMOGLOBIN A1C - [facility] 9.8 (H) 07/08/2023 11:02 AM HEMOGLOBIN A1C - [facility] 12.3 (H) 11/29/2022 09:51 AM HEMOGLOBIN A1C - [facility] 7.1 (H) 02/25/2020 08:14 AM HEMOGLOBIN A1C - [facility] 10.0 (H) 09/21/2019 08:40 AM HEMOGLOBIN A1C - [facility] 8.6 (H) 09/07/2018 10:51 AM BP Readings from Last 1 Encounters: 03/16/24 136/80 Reviewed Health Maintenance below: Health Maintenance Topic Date Due Depression Screening 08/13/2022 Adult Wellness Visit 08/13/2022 B-12 09/26/2023 Influenza Vaccine (FLU shot) (1) 11/09/2023 COVID-19 Vaccine ( season) 2023 GFR 02/07/2024 HbA1c 03/18/2024 Albumin/Creatinine Ratio 07/07/2024 CKD PHOS USE SMARTSET 68302 08/06/2024 Mtm referral put in and needed scheduled Ov September 6 months Labs awv Care Gap Outreach Action Taken: Left message documented in this encounter Plan of Treatment Upcoming Encounters Date Type Department Care Team (Late st Contact Info) Description 04/12/2024 2:20 PM EST Office Visit Nephrology, [facility] [address] [place] [address] Jacky Macdonald MD [address] [place] [address] 07/08/2024 11:15 AM EDT Imaging Radiology [address] [place] [address] 09/17/2024 3:30 PM EDT Office Visit Cardiology, [facility] [address] [place] [address] Piyush Kee PA-C [address] [place] [address] 12/08/2024 1:40 PM EDT Office Visit Dermatology [address] [place] [address] Miranda Zamora PA-C [address] [place] [address] [place] [address] Health Maintenance Due Date Last Done Comments Adult Wellness Visit 08/13/2022 08/13/2021, 04/21/19 21 Depression Screening 08/13/2022 08/13/2021 B-12 09/26/2023 09/25/2022, 02/08, 09/21/2019, Additional history exists COVID-19 Vaccine ( season) 2023 02/06/2022, 01/15/2021, 05/02/2020, Additional history exists Influenza Vaccine (FLU shot) (#1) 2023 04/24/2023, 01/20/2023, 12/28/2021, Additional history exists GFR 02/07/2024 08/07/2023, 06/10, 05/28/2023, Additional history exists HbA1c 03/18/2024 09/16/2023, 06/10, 11/29/2022, Additional history exists Albumin/Creatinine Ratio 07/07/2024 024, 11/28/2021, 11/09/2021, Additional history exists CKD PHOS USE SMARTSET 73825 08/06/2024 05, 11/29/2022, 11/09/2021, Additional history exists Diabetic Foot Exam 09/08/2024 09/09/2023, 0 05/27/2022, 08/13/2021, Additional history exists CKD HGB USE SMARTSET 73479 09/15/202409/15, 09/16/2023, 08/21/2023, Additional history exists Diabetic Eye Exam 09/29/2024 09/30/2023, , 01/11/2021, Additional history exists Colonoscopy 11/15/2024 11/15/2021, 05/04/2016, 11/29/2008, Additional history exists DTap/Tdap Vaccines (3 - [...] Documents on File Type Date Recorded Patient 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
--- OUTSIDE RECORDS SUMMARY | 2024-04-30 23:04 | External Medical Summary ---
Author Name Unknown Address Unknown Organization [id number]:LAB[facility] - [address] [facility] [address] Laboratory Report Ordering Provider Test Date Status PARRISH ULLOACADY 04/12/2024 15:26:51 Final Observation Date Value Abnormality Reference (Units ) Status HbA1C 04/12/2024 15:26:51 11.5 Above high normal 4. 0-5.6 (%) Final The use of HbA1c to monitor glycemic status is based on normal hemoglobin and HbA composition. This test should not be used in patients with abnormal hemoglobin that affects the half life of the red blood cell or the in vivo glycation rates. Glucose, estimated average 04/12/2024 15:26:51 283 Above high normal <126 (mg/dL) Fin al Performing Location [facility] [address] [facility] [address]
--- OUTSIDE RECORDS SUMMARY | 2024-04-30 23:04 | External Medical Summary ---
Author Name Unknown Address Unknown Organization [id number]:[facility] [place] [place] [address] Laboratory Report Ordering Provider Test Date Status CLARICE ULLOA 04/12/2024 15:26:59 Final Observation Date Value Abnormality Reference (Units ) Status SYNC LEUKOCYTES IN BLOOD BY AUTOMATED COUNT 04/12/2024 15:26:59 4.94 4.00-10.80 (K/uL) Final Segs 04/12/2024 15:26:59 71.1 40.0-75.0 (%) Final Lymphs % 04/12/2024 15:26:59 16.4 Below low normal 18.0-42.0 (%) Final Monos 04/12/2024 15:26:59 9.5 1.0-11.0 (%) Final Eosinophils 04/12/2024 15:26:59 2.4 0.0-6.0 (%) Final Basos 04/12/2024 15:26:59 0.6 0.0-2.0 (%) Final Absolute Segs 04/12/2024 15:26:59 3.51 1.80-7.70 (K/uL) Final Lymphs, absolute 04/12/2024 15:26:59 0.81 Below low normal 1.00-4.80 (K/ul) Final Monos, Abs 04/12/2024 15:26:59 0.47 0.00-1.10 (K/uL) Final Eos, Abs 04/12/2024 15:26:59 0.12 0.00-0.70 (K/uL) Final Basos, Abs 04/12/2024 15:26:59 0.03 0.00-0.20 (K/uL) Final Performing Location [facility] [place] [address]
--- OUTSIDE RECORDS SUMMARY | 2024-04-30 23:04 | External Medical Summary ---
Author Name Unknown Address Unknown Organization [id number]:[facility] - [address] [place] [address] Laboratory Report Ordering Provider Test Date Status CLARICE ULLOA 04/12/2024 15:26:41 Final Deficient: <20 ng/mL
Ins ufficient: 20-29 ng/mL
Recommended/Optimum:30-50 ng/mL

Vitamin D intoxication is rare. If suspicious of Vitamin D toxicity, evaluation of serum Calcium and PTH is recommended. Observation Date Value Abnormality Reference (Units ) Status 25-OH Vitamin D total 04/12/2024 15:26:41 16 Below low normal >19 (ng/mL) Final Performing Location LAB[facility]AT[facility] - [address] [place] [address]
--- OUTSIDE RECORDS SUMMARY | 2024-04-30 23:04 | External Medical Summary ---
Author Name Unknown Address Unknown Organization K01:[facility] - [address] [place] [address] Laboratory Report Ordering Provider Test Date Status CLARICE ULLOA 04/12/2024 15:26:41 Final Observation Date Value Abnormality Reference (Units ) Status BUN 04/12/2024 15:26:41 30 Above high normal 6-20 (mg/dL) Final Creatinine 04/12/2024 15:26:41 1.6 Above high normal 0.6-1.2 (mg/dL) Final Glomerular filtration rate/1.73 sq M.predicted [Volume Rate/Area] in Serum, Plasma or Blood by Creatinine-based formula (CKD-EPI) 04/12/2024 15:26:41 44 Below low normal >=60 (mL/min) Final eGFR is calculated based on the CKD-EPI 2020 equation. Sodium 04/12/2024 15:26:41 138 135-146 (m mol/L) Final Potassium 04/12/2024 15:26:41 4.1 3.5-5.1 (m mol/L) Final Cl 04/12/2024 15:26:41 95 Below low normal 98- 107 (mmol/L) Final CO2 04/12/2024 15:26:41 32 22-32 (mmo l/L) Final Anion gap 04/12/2024 15:26:41 11 7-15 (mmol /L) Final Glucose 04/12/2024 15:26:41 397 Above high normal 70 -120 (mg/dL) Final Calcium 04/12/2024 15:26:41 8.9 8.4-10.2 ( mg/dL) Final Albumin 04/12/2024 15:26:41 3.8 3.8-5.0 (g /dL) Final Phosphate 04/12/2024 15:26:41 2.9 2.5-4.8 (m g/dL) Final Performing Location [facility]ATORY [facility] - [address] [facility] [address]
--- OUTSIDE RECORDS SUMMARY | 2024-04-30 23:04 | External Medical Summary | Summary of Care ---
Author Name Unknown Organization [facility] Address [address] [facility] [place] [address] Phone [phone] Care Team Providers Care Records Custodian Name Role Phone Bo Renteria MD Primary Care Provider [phone] Encounter Details Date Type Department Care Team (Late st Contact Info) Description 03/18/2024 Orders Only PATIENT PORTAL DO NOT DELETE THIS DEPT USED BY [place] [address] Allergies Active Allergy Reactions Criticality Noted Date Comments Salicylates 02/09/2002 stomach upset documented as of this encounter (statuses as of 03/18/2024) Medications ASPIRIN EC 81 MG PO TBEC Take by mouth daily. Active Blood Glucose Monitoring Suppl (ONETOUCH VERIO FLEX SYSTEM) w/Device KITIndications:Ty pe 2 diabetes mellitus with hemoglobin A1c goal of less than 8.0% ([facility]) Use as directed. 1 Kit 0 Active [...] 2 g 3 Active OneTouch Delica Plus [id number] ons:Type 2 diabetes mellitus with hemoglobin A1c goal of less than 8.0% ([facility]) test blood sugar once daily dx e11.9 100 Each 3 4 Active OneTouch Verio In Vitro Strip (Glucose Blood)Indications :Type 2 diabetes mellitus with hemoglobin A1c goal of less than 8.0% ([facility]) test blood sugar once daily dx e11.9 100 Strip 3 4 Active Insulin Glargine Solostar 100 UNIT/ML Subcutaneous Solution Pen-injector (Lantus SoloStar) Inject 35 Units under the skin every evening. E11.9 30 mL 5 4 Active Pen [place] 32G X 4 MMIndications:Typ e 2 diabetes mellitus with hemoglobin A1c goal of less than 8.0% ([facility]) Use as directed. Use to inject insulin four times daily E11.9 400 Each 3 4 Active Lisinopril 40 MG Oral TabletIndications :Essential hypertension with goal blood pressure less than 140/90,Coronary artery disease involving [place] coronary artery of [place] heart without angina pectoris Take 1 Tablet by mouth in the morning. 90 Tablet 3 4 Active Furosemide 40 MG Oral Tablet (Lasix) Take 1 Tablet by mouth in the morning. 90 Tablet 3 4 Active metFORMIN HCl 500 MG Oral Tablet (Glucophage)Indic ations:Type 2 diabetes mellitus with hemoglobin A1c goal of less than 8.0% ([facility]) Take 1 Tablet by mouth 2 times [...] the morning. 90 Tablet 1 4 Active linaGLIPtin 5 MG Oral Tablet (Tradjenta) Take 1 Tablet by mouth in the morning. 90 Tablet 3 5 Active documented as of this encounter (statuses as of 03/18/2024) Active Problems Problem Noted Date Diagnosed Date Gouty arthropathy 11/29/2022 Stage 3b chronic kidney disease 05/27/2022 Coronary artery disease invo lving [place] coronary artery of [place] heart without angina pectoris 03/19/2019 BPH with [...] as of this encounter (statuses as of 03/18/2024) Resolved Problems Problem Noted Date Diagnosed Date [...] as of this encounter (statuses as of 03/18/2024) Immunizations Name Administration Dates Next Due COVID-19 [...] EST Office Visit Nephrology, [facility] [address] [place] [address] Jacky Macdonald MD [address] [place] [address] 07/08/2024 11:15 AM EDT Imaging Radiology [address] [place] [address] 09/17/2024 3:30 PM EDT [facility] [address] [facility] [place] [address] Piyush Kee PA-C [address] [place] [address] 12/08/2024 1:40 PM EDT Office Visit Dermatology [address] [place] [address] Miranda Zamora PA-C [address] [place] [address] [place] [address] Health Maintenance Due Date Last Done Comments Adult Wellness Visit 08/13/2022 08/13/2021, 04/21/19 Depression Screening 08/13/2022 08/13/2021 B-12 09/26/2023 09/25/2022, [...] Additional history exists CKD PHOS USE SMARTSET 31491 08/06/202407/10, 11/29/2022, 11/09/2021, Additional history exists Diabetic Foot Exam 09/08/2024 09/09/2023, 0 05/27/2022, 08/13/2021, Additional history exists CKD HGB USE SMARTSET 37762 09/15/202409/15, 09/16/2023, 08/21/2023, Additional history exists Diabetic Eye Exam 09/29/2024 09/30/2023, , 01/11/2021, Additional history exists Colonoscopy 11/15/2024 11/15/2021, 05/0 04/2016, 11/29/2008, Additional history exists DTap/Tdap Vaccines (3 [...] Documents on File Type Date Recorded 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
--- OUTSIDE RECORDS SUMMARY | 2024-04-30 23:04 | External Medical Summary ---
Author Name Unknown Address Unknown Organization K01:[facility] [place] [address] [place] [address] Laboratory Report Ordering Provider Test Date Status PARRISH ULLOACADY 04/12/2024 15:26:41 Final Observation Date Value Abnormality Reference (Units ) Status Parathyrin.intact [Mass/volume] in Serum or Plasma 04/12/2024 15:26:41 103 Above high normal 15-65 (pg/mL) Final Performing Location [facility] [address] [place] [address]
--- OUTSIDE RECORDS SUMMARY | 2024-04-30 23:04 | External Medical Summary | Summary of Care ---
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 Pt states when he stands he has to void. Pt is unsure if it is a side effect from medication. Pt started taking jardiance a month ago and symptoms started 2 weeks ago. Pt also has swelling R foot for the past month Encounter Details Date Type Department Care Team (Latest Contact Info) Description 03/16/2024 5:05 PM EST Office Visit Family [facility] [address] [facility] [place] [address] Bo Renteria MD [address] [facility] [place] [address] Type 2 diabetes mellitus with hemoglobin A1c goal of less than 8.0% ([facility])*; Dyslipidemia; HTN, goal below 130/80; Coronary artery disease involving [place] coronary artery of [place] heart without angina pectoris; Stage 3b chronic kidney disease (HCC); BPH with obstruction/lower urinary tract symptoms; Gouty arthropathy; S/P carotid endarterectomy Allergies Active Allergy Reactions Criticality Noted Date Comments Salicylates 02/09/2002 stomach upset documented as of this encounter (statuses as of 03/16/2024) Medications ASPIRIN EC 81 MG PO TBEC Take by mouth daily. Active Blood Glucose Monitoring Suppl (ONETOUCH VERIO FLEX SYSTEM) w/Device KITIndications:T ype 2 diabetes mellitus with hemoglobin A1c goal of less than 8.0% (HCC) Use as directed. 1 Kit 11/17/19 20 Active Nitroglycerin 0.4 MG Sublingual Tablet Sublingual (Nitrostat) Place under the tongue 1 Tablet every 5 minutes as needed for Pain, Chest. up to 3 doses in 15 minutes 25 Tablet 3 05/03/19 22 Active Diclofenac Sodium 1 % External Gel (Voltaren) Apply 2 g topically to affected area in the morning and 2 g before bedtime. Apply to right ankle. 2 g 03/07/20 23 Active BubbleGabTouch Delica Plus [id number] ions:Type 2 diabetes mellitus with hemoglobin A1c goal of less than 8.0% (HCC) test blood sugar once daily dx e11.9 100 Each 3 04/09/19 24 Active BubbleGabTouch Verio In Vitro Strip (Glucose Blood)Indication s:Type 2 diabetes mellitus with hemoglobin A1c goal of less than 8.0% (HCC) test blood sugar once daily dx e11.9 100 Strip 3 04/09/19 24 Active Insulin Glargine Solostar 100 UNIT/ML Subcutaneous Solution Pen-injector (Lantus SoloStar) Inject 35 Units under the skin every evening. E11.9 30 mL 5 05/13/19 24 Active Pen [place] 32G X 4 MMIndications:Ty pe 2 diabetes mellitus with hemoglobin A1c goal of less than 8.0% (HCC) Use as directed. Use to inject insulin four times daily E11.9 400 Each 3 06/17/19 24 Active Lisinopril 40 MG Oral TabletIndication s:Essential hypertension with goal blood pressure less than 140/90,Coronary artery disease involving [place] coronary artery of [place] heart without angina pectoris Take 1 Tablet by mouth in the morning. 90 Tablet 3 07/28/19 24 Active Furosemide 40 MG Oral Tablet (Lasix) Take 1 Tablet by mouth in the morning. 90 Tablet 3 07/28/19 24 Active metFORMIN HCl 500 MG Oral Tablet (Glucophage)Gabriela cations:Type 2 diabetes mellitus with hemoglobin A1c goal of less than 8.0% (HCC) Take 1 Tablet by mouth 2 times a day with morning and evening meals. 180 Tablet 3 11/22/19 24 Active amLODIPine Besylate 5 MG Oral Tablet (Norvasc)Indicat ions:Albuminuria ,Hypertension, unspecified type Take 1 tab daily at night 90 Tablet 3 02/12/20 24 Active Atorvastatin Calcium 80 MG Oral Tablet (Lipitor)Indicat ions:Chronic ischemic heart disease,Dyslipid emia, goal LDL below 70 Take 1 Tablet by mouth in the morning. 90 Tablet 1 02/13/20 24 Active Metoprolol Succinate ER 100 MG Oral Tablet Extended Release 24 Hour (toPROL XL)Indications:P alpitations take one and 1/2 tablet daily 135 Tablet 1 02/26/20 24 Active Allopurinol 100 MG Oral Tablet (Zyloprim) Take 1 Tablet by mouth in the morning. 90 Tablet 1 02/26/20 24 Active linaGLIPtin 5 MG Oral Tablet (Tradjenta) Take 1 Tablet by mouth in the morning. 90 Tablet 3 03/16/19 25 Active Empagliflozin 10 MG Oral Tablet (Jardiance)Indic ations:Type 2 diabetes mellitus with hemoglobin A1c goal of less than 8.0% (HCC) Take 1 Tablet by mouth in the morning. 90 Tablet 3 07/21/19 24 025 Discontinued documented as of this encounter (statuses as of 03/16/2024) Active Problems Problem Noted Date Diagnosed Date Gouty arthropathy 11/29/2022 Stage 3b chronic kidney disease 05/27/2022 Coronary artery disease invo lving [place] coronary artery of [place] heart without angina pectoris 03/19/2019 BPH with [...] as of this encounter (statuses as of 03/16/2024) Resolved Problems Problem Noted Date Diagnosed Date [...] as of this encounter (statuses as of 03/16/2024) Immunizations Name Administration Dates Next Due COVID-19 [...] on file documented as of this encounter Last Filed Vital Signs Vital Sign Reading Time Taken Comments Blood Pressure 136/80 03/16/2024 5:11 PM EST Pulse 76 03/16/2024 5:11 PM EST Temperature 36.6 C (97.8 F) 03/16/2024 5:11 PM ES T Respiratory Rate 18 03/16/2024 5:11 PM EST Oxygen Saturation - - Inhaled Oxygen Concentration - - Weight 68.5 kg (151 lb) 03/16/2024 5:11 PM EST Height 179.1 cm (5' 10.5") 03/16/2024 5:11 PM ES T Body Mass Index 21.36 03/16/2024 5:11 PM EST documented in this encounter Progress Notes * Bo Renteria MD - 03/16/2024 11:00 PM EST SUBJECTIVE: Varinder Grace is a 78 year old male. Chief Complaint Patient presents with Follow Up Pt here for follow up. Pt states when he stands he has to void. Pt is unsure if it is a side effectfrom medication. Pt started taking jardiance a month ago and symptoms started 2 weeks ago. Pt also has swelling R foot for the past month HPI: Routine visit. Doing well overall. Has discolored right foot but no pain. Had extensive work up. Seems to be mostly stasis dermatitis. Has had a lot of urinary urgency/frequency since starting jardiance. Interested in trying different diabetic medication. He is on lasix and the jardiance gives him some cardiac benefit but at this point he feels it's not worth it with all of the urinary issues he's having. Patient Active Problem List Diagnosis Dyslipidemia S/P carotid endarterectomy Type 2 diabetes mellitus with hemoglobin A1c goal of less than 8.0% (HCC) HTN, goal below 130/80 BPH with obstruction/lower urinary tract symptoms Coronary artery disease involving [place] coronary artery of [place] heart without angina pectoris Stage 3b chronic kidney disease (HCC) Gouty arthropathy Current Outpatient Medications Medication Sig Dispense Refill ASPIRIN EC 81 MG PO TBEC Take by mouth daily. Nitroglycerin 0.4 MG Sublingual Tablet Sublingual (Nitrostat) Place under the tongue 1 Tablet every5 minutes as needed for Pain, Chest. up to 3 doses in 15 minutes 25 Tablet 3 Diclofenac Sodium 1 % External Gel (Voltaren) Apply 2 g topically to affected area in the morning and 2 g before bedtime. Apply to right ankle. 2 g 0 Insulin Glargine Solostar 100 UNIT/ML Subcutaneous Solution Pen-injector (Lantus SoloStar) Inject 35 Units under the skin every evening. E11.9 30 mL 5 Lisinopril 40 MG Oral Tablet Take 1 Tablet by mouth in the morning. 90 Tablet 3 Furosemide 40 MG Oral Tablet (Lasix) Take 1 Tablet by mouth in the morning. 90 Tablet 3 metFORMIN HCl 500 MG Oral Tablet (Glucophage) Take 1 Tablet by mouth 2 times a day with morning andevening meals. 180 Tablet 3 amLODIPine Besylate 5 MG Oral Tablet (Norvasc) Take 1 tab daily at night 90 Tablet 3 Atorvastatin Calcium 80 MG Oral Tablet (Lipitor) Take 1 Tablet by mouth in the morning. 90 Tablet 1 Metoprolol Succinate ER 100 MG Oral Tablet Extended Release 24 Hour (toPROL XL) take one and 1/2 tablet daily 135 Tablet 1 Allopurinol 100 MG Oral Tablet (Zyloprim) Take 1 Tablet by mouth in the morning. 90 Tablet 1 linaGLIPtin 5 MG Oral Tablet (Tradjenta) Take 1 Tablet by mouth in the morning. 90 Tablet 3 Blood Glucose Monitoring Suppl ([employer] VERIO FLEX SYSTEM) w/Device KIT Use as directed. 1 Kit 0 BubbleGabTouch Delica Plus [id number] test blood sugar once daily dx e11.9 100 Each 3 [employer] Verio In Vitro Strip (Glucose Blood) test blood sugar once daily dx e11.9 100 Strip 3 Pen [place] 32G X 4 MM Use as directed. Use to inject insulin four times daily E11.9 400 Each 3 No current facility-administered medications for this visit. Allergy: Review of patient's allergies indicates: Allergen Reactions Salicylates stomach upset OBJECTIVE: BP 136/80 | Pulse 76 | Temp 97.8 F (36.6 C) | Resp 18 | Ht 5' 10.5" (1.791 m) | Wt 151 lb (68.5kg) | BMI 21.36 kg/m | BSA 1.85 m Gen: nad Lungs: ctab Heart: rrr, no mrg Ext: stasis dermatitis of right foot/calf Skin: no other rashes/lesions ASSESSMENT AND PLAN: (E11.9) Type 2 diabetes mellitus with hemoglobin A1c goal of less than 8.0% (HCC) (primary encounter diagnosis) Plan: HEMOGLOBIN A1C -continue metformin -STOP jardiance; start tradjenta (E78.5) Dyslipidemia Plan: continue rx (I10) HTN, goal below 130/80 Plan: stable (I25.10) Coronary artery disease involving [place] coronary artery of [place] heart without angina pectoris Plan: stable (N18.32) Stage 3b chronic kidney disease (HCC) Plan: COMPREHENSIVE METABOLIC PANEL (N40.1, N13.8) BPH with obstruction/lower urinary tract symptoms Plan: stable (M10.9) Gouty arthropathy Plan: quiescent (Z98.890) S/P carotid endarterectomy Plan: noted Follow up in 6 month(s). No other complaints were offered at this time. Bo Renteria MD documented in this encounter Plan of Treatment Upcoming Encounters Date Type Department Care Team (Late st Contact Info) Description 04/12/2024 2:20 PM EST Office Visit Nephrology, [facility] [address] [facility] [place] [address] Jacky Macdonald MD [address] [facility] [place] [address] 07/08/2024 11:15 AM EDT Imaging Radiology [address] [place] [address] 09/17/2024 3:30 PM EDT Office Visit Cardiology, [facility] [address] [place] [address] Piyush Kee PA-C [address] [place] [address] 12/08/2024 1:40 PM EDT Office Visit Dermatology [address] [place] [address] Miranda Zamora PA-C [address] [place] [address] [place] [address] Scheduled Orders Name Type Priority Associated Diagnoses Orde r Schedule HEMOGLOBIN A1C Lab Routine Type 2 diabetes mellitus with hemoglobin A1c goal of less than 8.0% (HCC) Expected: 03/16/2024 (Approximate), Expires: 03/16/2025 COMPREHENSIVE METABOLIC PANEL Lab Routine Stage 3b chronic kidney disease (HCC) Expected: 03/16/2024 (Approximate), Expires: 03/16/2025 Health Maintenance Due Date Last Done Comments Adult Wellness Visit 08/13/2022 08/13/2021, 04/21/19 21 Depression Screening 08/13/2022 08/13/2021 B-12 09/26/2023 09/25/2022, 12/11/2020, 09/21/2019, Additional history exists COVID-19 Vaccine ( season) 2023 02/06/2022, 01/15/2021, 05/02/2020, Additional history exists Influenza Vaccine (FLU shot) (#1) 2023 04/24/2023, 01/20/2023, 12/28/2021, Additional history exists GFR 02/07/2024 08/07/2023, 06/10, 05/28/2023, Additional history exists HbA1c 03/18/2024 09/16/2023, 3 , 11/29/2022, Additional history exists Albumin/Creatinine Ratio 07/07/2024 024, 11/28/2021, 11/09/2021, Additional history exists CKD PHOS USE SMARTSET 31713 08/06/20243 , 11/29/2022, 11/09/2021, Additional history exists Diabetic Foot Exam 09/08/2024 09/09/2023, 0 05/27/2022, 08/13/2021, Additional history exists CKD HGB USE SMARTSET 67858 09/15/202409/15, 09/16/2023, 08/21/2023, Additional history exists Diabetic [...] Not on filedocumented as of this encounter Visit Diagnoses Diagnosis Type 2 diabetes mellitus with hemoglobin A1c goal of less than 8.0% ([facility])- Primary Dyslipidemia Other and unspecified hyperlipidemia HTN, goal below 130/80 Unspecified essential hypertension Coronary artery disease involving [place] coronary artery of [place] heart without angina pectoris Stage 3b chronic kidney disease (HCC) BPH with obstruction/lower urinary tract symptoms Hypertrophy of prostate with urinary obstruction and other lower urinary tract symptoms (LUTS) Gouty arthropathy Gouty arthropathy, unspecified S/P carotid endarterectomy Other postprocedural status documented in this encounter Advance Directives Documents on File Type Date 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
--- OUTSIDE RECORDS SUMMARY | 2024-04-30 23:04 | External Medical Summary | Summary of Care ---
Author Name Unknown Organization [facility] Address [address] [facility] [place] [address] Phone [phone] Care Team Providers Care Tour Sales Representative Name Role Phone Bo Renteria MD Primary Care Provider [phone] Encounter Details Date Type Department Care Team (Late st Contact Info) Description 04/01/2024 Population Health External Data Unspecified Department Allergies Active Allergy Reactions Criticality Noted Date Comments Salicylates 02/09/2002 stomach upset documented as of this encounter (statuses as of 04/01/2024) Medications ASPIRIN EC 81 MG PO TBEC Take by mouth daily. Active Blood Glucose Monitoring Suppl (ONETOUCH VERIO FLEX SYSTEM) w/Device KITIndications:Ty pe 2 diabetes mellitus with hemoglobin A1c goal of less than 8.0% ([facility]) Use as directed. 1 Kit 0 Active [...] 2 g 3 Active OneTouch Delica Plus [id number] ons:Type 2 diabetes mellitus with hemoglobin A1c [...] E11.9 30 mL 5 4 Active Pen [place] 32G X 4 MMIndications:Typ e 2 diabetes mellitus with hemoglobin A1c goal of less than 8.0% (HCC) Use as directed. Use to inject insulin four times daily E11.9 400 Each 3 4 Active Lisinopril 40 MG Oral TabletIndications :Essential hypertension with goal blood pressure less than 140/90,Coronary artery disease involving [place] coronary artery of [place] heart without angina pectoris Take 1 Tablet [...] as of this encounter (statuses as of 04/01/2024) Active Problems Problem Noted Date Diagnosed Date Gouty arthropathy 11/29/2022 Stage 3b chronic kidney disease 05/27/2022 Coronary artery disease invo lving [place] coronary artery of [place] heart without angina pectoris 03/19/2019 BPH with [...] as of this encounter (statuses as of 04/01/2024) Resolved Problems Problem Noted Date Diagnosed Date [...] as of this encounter (statuses as of 04/01/2024) Immunizations Name Administration Dates Next Due COVID-19 [...] 2:20 PM EST Office Visit Nephrology, [facility] [address] [place] [address] Jacky Macdonald MD [address] [place] [address] 07/08/2024 11:15 AM EDT Imaging Radiology [address] [place] [address] 09/17/2024 3:30 PM EDT Office Visit Cardiology, [facility] [address] [place] [address] Piyush Kee PA-C [address] [place] [address] 12/08/2024 1:40 PM EDT Office Visit Dermatology [address] [place] [address] Miranda Zamora PA-C [address] [place] [address] [place] [address] Health Maintenance Due Date Last Done Comments Adult Wellness Visit 08/13/2022 08/13/2021, 04/21/19 21 Depression Screening 08/13/2022 08/13/2021 B-12 09/26/2023 09/25/2022, 1211/2020, 09/21/2019, Additional history exists COVID-19 Vaccine ( season) 2023 02/06/2022, 01/15/2021, 05/02/2020, Additional history exists Influenza Vaccine (FLU shot) (#1) 2023 04/24/2023, 01/20/2023, 12/28/2021, Additional history exists GFR 02/07/2024 08/07/2023, 3 , 05/28/2023, Additional history exists HbA1c 03/18/2024 09/16/2023, 06/10, 11/29/2022, Additional history exists Albumin/Creatinine Ratio 07/07/202407/07/ 024, 11/28/2021, 11/09/2021, Additional history exists CKD PHOS USE SMARTSET 37253 08/06/202407/10, 11/29/2022, 11/09/2021, Additional history exists Diabetic Foot Exam 09/08/2024 09/09/2023, 0 05/27/2022, 08/13/2021, Additional history exists CKD HGB USE SMARTSET 40410 09/15/202409/15, 09/16/2023, 08/21/2023, Additional history exists Diabetic [...] Documents on File Type Date Recorded 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
--- OUTSIDE RECORDS SUMMARY | 2024-04-30 23:04 | External Medical Summary ---
Author Name Unknown Address Unknown Organization K01:[facility] [place] [facility] [address] [place] [address] Laboratory Report Ordering Provider Test Date Status CLARICE ULLOA 04/12/2024 15:28:40 Final Normal: <30 mg/g creatinine< br/>High: 30-300 mg/g creatinine
Very High: >300 mg/g creatinine
Nephrotic: >2200 mg/g creatinine Observation Date Value Abnormality Reference (Units ) Status Albumin, Urine 04/12/2024 15:28:40 148.00 (mg/dL) Final Creatinine, Urine 04/12/2024 15:28:40 55 (mg/dL) Final Albumin/Creatinine [Mass Ratio] in Urine 04/12/2024 15:28:40 2691 Above high normal <30 (mg/g Creat) Final Performing Location [facility] [place] [address] [place] [address]
--- OUTSIDE RECORDS SUMMARY | 2024-04-30 23:04 | External Medical Summary | Summary of Care ---
Author Name Unknown Organization [facility] Address [address] [facility] [place] [address] Phone [phone] Care Team Providers Care Answering Service Agent Name Role Phone Bo Renteria MD Primary Care Provider [phone] Reason for Visit * Reason Onset Date Comments Referral 03/31/2024 [facility] Discharge D iabetes Encounter Details Date Type Department Care Team (Late st Contact Info) Description 03/31/2024 Telephone Pharmacy, [address] [place] [address] [place] [address] Referral ([facility] Discharge Diabetes) Allergies Active Allergy Reactions Criticality Noted Date Comments Salicylates 02/09/2002 stomach upset documented as of this encounter (statuses as of 03/31/2024) Medications ASPIRIN EC 81 MG PO TBEC Take by mouth daily. Active Blood Glucose Monitoring Suppl (Always Prepped VERIO FLEX SYSTEM) w/Device KITIndications:Ty pe 2 diabetes mellitus with hemoglobin A1c goal of less than 8.0% ([facility]) Use as directed. 1 Kit 0 [...] 2 g 3 Active OneTouch Delica Plus [id number] ons:Type 2 diabetes mellitus with hemoglobin A1c [...] E11.9 30 mL 5 4 Active Pen [place] 32G X 4 MMIndications:Typ e 2 diabetes mellitus with hemoglobin A1c goal of less than 8.0% (HCC) Use as directed. Use to inject insulin four times daily E11.9 400 Each 3 4 Active Lisinopril 40 MG Oral TabletIndications :Essential hypertension with goal blood pressure less than 140/90,Coronary artery disease involving [place] coronary artery of [place] heart without angina pectoris Take 1 Tablet [...] disease 05/27/2022 Coronary artery disease invo lving [place] coronary artery of [place] heart without angina pectoris 03/19/2019 BPH with [...] Miscellaneous Notes * Telephone Encounter - An Moore CPhT - 03/31/2024 12:29 PM EST Patient Phone Numbers Varinder Grace has not contacted the clinic to schedule/reschedule an appointment for diabetes management per referral from PCP despite multiple requests (via phone and/or [facility]) to do so by our team. Patient is discharged from [facility] services at this time. Thank you, An Moore CPhT [facility] 03/31/2024,12:29 PM documented in this encounter Plan of Treatment Upcoming Encounters Date Type Department Care Team (Late st Contact Info) Description 04/12/2024 2:20 PM EST [facility] [address] [place] [address] Jacky Macdonald MD [address] [place] [address] 07/08/2024 11:15 AM EDT Imaging Radiology [address] [place] [address] 09/17/2024 3:30 PM EDT Office Visit Cardiology, [facility] [address] [place] [address] Piyush Kee PA-C [address] [place] [address] 12/08/2024 1:40 PM EDT Office Visit Dermatology [address] [place] [address] Miranda Zamora PA-C [address] [place] [address] [place] [address] Health Maintenance Due Date Last Done Comments [...] Additional history exists CKD PHOS USE SMARTSET 07545 08/06/202407/10, 11/29/2022, 11/09/2021, Additional history exists Diabetic Foot Exam 09/08/2024 09/09/2023, 0 05/27/2022, 08/13/2021, Additional history exists CKD HGB USE SMARTSET 83088 09/15/202409/15, 09/16/2023, 08/21/2023, Additional history exists Diabetic [...] Documents on File Type Date Recorded 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
--- OUTSIDE RECORDS SUMMARY | 2024-04-30 23:04 | External Medical Summary | Summary of Care ---
Author Name Unknown Organization [facility] Address [address] [place] [address] Phone [phone] Care Team Providers Care Shift Boss Name Role Phone Bo Renteria MD Primary Care Provider [phone] Reason for Visit * Reason Comments Chronic Kidney Disease (CKD) Encounter Details Date Type Department Care Team (Late st Contact Info) Description 04/12/2024 2:20 PM EST Office Visit [facility] [address] [place] [address] Jacky Macdonald MD [address] [facility] [place] [address] Stage 3b chronic kidney disease (HCC)*; Proteinuria, unspecified type; Type 2 diabetes mellitus with hemoglobin A1c goal of less than 8.0% ([facility]) Allergies Active Allergy Reactions Criticality Noted Date Comments Salicylates 02/09/2002 stomach upset documented as of this encounter (statuses as of 04/13/2024) Medications ASPIRIN EC 81 MG PO TBEC Take by mouth daily. Active Blood Glucose Monitoring Suppl (BioNitrogen VERIO FLEX SYSTEM) w/Device KITIndications:T ype 2 diabetes mellitus with hemoglobin A1c goal of less than 8.0% ([facility]) Use as directed. 1 Kit 0 [...] not taking.Reported on 04/12/2024 OneTouch Delica Plus [id number] ions:Type 2 diabetes mellitus with hemoglobin A1c [...] E11.9 30 mL 5 4 Active Pen Humboldt 32G X 4 MMIndications:Ty pe 2 diabetes mellitus with hemoglobin A1c goal of less than 8.0% (HCC) Use as directed. Use to inject insulin four times daily E11.9 400 Each 3 4 Active Lisinopril 40 MG Oral TabletIndication s:Essential hypertension with goal blood pressure less than 140/90,Coronary artery disease involving koi coronary artery of koi heart without angina pectoris Take 1 Tablet [...] disease 05/27/2022 Coronary artery disease invo lving koi coronary artery of koi heart without angina pectoris 03/19/2019 BPH with [...] Sign Reading Time Taken Comments Blood Pressure 150/70 04/12/2024 2:31 PM EST Pulse 97 04/12/2024 2:31 PM EST Temperature 37.4 C (99.3 F) 04/12/2024 2:31 PM ES T Respiratory Rate - - Oxygen Saturation - - Inhaled Oxygen Concentration - - Weight 71.4 kg (157 lb 4.8 oz) 04/12/2024 2:31 P M EST Height - - Body Mass Index 22.25 03/16/2024 5:11 PM EST documented in this encounter Progress Notes * Jacky Macdonald MD - 04/12/2024 2:44 PM EST New patient for me. Was seen in Nephrology in 2021 BACKGROUND: 79 year old male presents for f/u of CKD 3B with proteinuria and increasing lower extremity edema recently. His last visit with Nephrology was in November 2021. Since then his proteinuria has really increased to almost 3 g now This was worked up by Cardiology with echocardiogram which was normal. PMH includes HTN since at least late and w/o hx of urgency, DM since about 2003 on po meds, gout, HL, CAD including per pt fully blocked LAD, BL carotid artery stenosis s/p CEA 1997. Reformed tobacco abuser stopped 1997. Last hospital stay: approx 2005 [facility] for cardiac issues. Follows w/ [facility] cardiology Dr Bejarano . Exercises 5 days weekly - in good weather walks 2 mi; doing 1.5 mi on treadmill in bad weather. Hx GI upset w/ NSAIDS. No current EtOH or tobacco He does have blood pressure cuff at home but does not really check frequently Since last visit July 2023-----no hospital admission emergency or major infections. His diabetes remains very uncontrolled. I do not know the exact detail but he was briefly on Jardiance but then not currently taking. He claims his blood pressure is very good at home with readings in the 130s systolic. He was referred to [facility] clinic for diabetes management but he did not respond to the calls and has since been taken off. Patient denies having any acute complaints at this time. Patient Active Problem List Diagnosis Dyslipidemia S/P carotid endarterectomy Type 2 diabetes mellitus with hemoglobin A1c goal of less than 8.0% ([facility]) HTN, goal below 130/80 BPH with obstruction/lower urinary tract symptoms Coronary artery disease involving koi coronary artery of koi heart without angina pectoris Stage 3b chronic kidney disease (HCC) Gouty arthropathy Current Outpatient Medications Medication Sig Dispense Refill ASPIRIN EC 81 MG PO TBEC Take by mouth daily. Blood Glucose Monitoring Suppl (HotelogixTOUCH VERIO FLEX SYSTEM) w/Device KIT Use as directed. 1 Kit 0 Nitroglycerin 0.4 MG Sublingual Tablet Sublingual (Nitrostat) Place under the tongue 1 Tablet every5 minutes as needed for Pain, Chest. up to 3 doses in 15 minutes 25 Tablet 3 HandipointsTouch Delica Plus [id number] test blood sugar once daily dx e11.9 100 Each 3 OneTouch Verio In Vitro Strip (Glucose Blood) test blood sugar once daily dx e11.9 100 Strip 3 Insulin Glargine Solostar 100 UNIT/ML Subcutaneous Solution Pen-injector (Lantus SoloStar) Inject 35 Units under the skin every evening. E11.9 30 mL 5 Pen Humboldt 32G X 4 MM Use as directed. Use to inject insulin four times daily E11.9 400 Each 3 Lisinopril 40 MG Oral Tablet Take 1 [...] mouth in the morning. 90 Tablet 1 Diclofenac Sodium 1 % External Gel (Voltaren) Apply 2 g topically to affected area in the morning and 2 g before bedtime. Apply to right ankle. (Patient not taking: Reported on 04/12/2024) 2 g 0 No current facility-administered medications for this visit. Review of patient's allergies indicates: Allergen Reactions Salicylates stomach upset Social History Socioeconomic History Marital status: Spouse name: Not on file Number of children: Not on file Years of education: Not on file Highest education level: Not on file Occupational History Occupation: retired Comment: [employer] Tobacco Use Smoking status: Former Current packs/day: 0.00 Average packs/day: 1.5 packs/day for 30.0 years (45.0 ttl pk-yrs) Types: Cigarettes Start date: 10/16/1967 Quit date: 10/15/1997 Years since quittin.5 Smokeless tobacco: Never Tobacco comments: quit Vaping Use Vaping status: Never Used Substance and Sexual Activity Alcohol use: Yes Comment: rare Drug use: No Sexual activity: Yes Other Topics Concern Not on file Social History Narrative Social Needs Financial Resource Strain: Not on file Food Insecurity: No Food Insecurity (09/28/2019) Hunger Vital Sign Worried About Running Out of Food in the Last Year: Never true Ran Out of Food in the Last Year: Never true Transportation Needs: Not on file Social Connections: Not on file Housing Stability: Not on file Family History Problem Relation Name Age of Onset Heart Disorder Father AL age 51, father at age 71 of ruptured AAA/ FROM ABDOMINAL ANEURYSM AT AGE 77 Cancer Mother breast/ FROM BREAST CANCER AT AGE 33 Heart Disorder Brother 12 coronary stents Heart Disorder Brother KACI HAS HAD AT LEAST 7 OR 8 STENTS PUT IN Family Status Relation Status Fa (Not Specified) Mo (Not Specified) Bro (Not Specified) Bro (Not Specified) PHYSICAL EXAMINATION: BP Readings from Last 6 Encounters: 04/12/24 177/80 03/16/24 136/80 03/01/24 156/88 09/09/23 130/70 08/21/23 150/70 08/08/23 146/64 Wt Readings from Last 6 Encounters: 04/12/24 71.4 kg (157 lb 4.8 oz) 03/16/24 68.5 kg (151 lb) 03/01/24 70.3 kg (154 lb 14.4 oz) 09/09/23 73 kg (161 lb) 08/21/23 72.1 kg (159 lb) 08/08/23 74.4 kg (164 lb) Pulse Readings from Last 6 Encounters: 04/12/24 97 03/16/24 76 03/01/24 96 09/09/23 76 08/21/23 75 08/08/23 80 Constitutional----- NAD, oriented x 3, no respiratory distress normal speech and able to accuratelytell his medical issues Normocephalic, atraumatic, mucous membranes moist neck is supple no JVD Chest bilateral clear to auscultation CVS S1-S2 regular no murmur or gallop heard Abdomen is soft non tender Extremity no edema. LABS: Recent Labs Units 08/07/23 0900 07/08/23 1102 05/28/23 1447 05/02/23 0949 SODIUM - [facility] mmol/L 140 141 136 135 POTASSIUM - [facility] mmol/L 3.8 3.8 4.3 3.9 CHLORIDE - [facility] mmol/L 99 100 94* 94* CO2 - [facility] mmol/L 29 29 31 29 BUN - [facility] mg/dL 26* 37* 28* 29* CREATININE - [facility] mg/dL 1.7* 1.7* 1.8* 1.7* Results for JULIANO BECK ( ) as of 11/22/2021 14:51 Ref. Range 05/17/2020 11:36 08/17/2020 09:59 03/07/2021 09:43 08/23/2021 09:31 11/09/2021 09:26 Estimated Glomerular Filtration Rate Latest Ref Range: >=60 mL/min 36.5 (L) 36.7 (L) 38 (L) 37 (L) 40 (L) Results for JULIANO BECK ( ) as of 11/22/2021 15:04 Ref. Range 06/01/2016 08:34 08/27/2017 08:33 04/13/2020 09:30 05/09/2021 15:15 Uric Acid Latest Ref Range: 3.4 - 7.0 mg/dL 7.3 (H) 7.0 6.6 6.2 Recent Labs Units 09/16/23 1037 08/21/23 0959 08/07/23 0900 WBC K/uL 5.85 6.67 6.03 HGB g/dL 14.1 14.0 14.2 PLT K/uL 149 158 155 Recent Labs Units 08/07/23 0900 07/08/23 1102 05/28/23 1447 05/02/23 0949 11/29/22 0951 CALCIUM - [facility] mg/dL 9.2 9.0 8.8 9.1 -- PHOSPHORUS - [facility] mg/dL 3.4 -- -- -- 3.1 Recent Labs Units 09/16/23 1037 07/08/23 1102 11/29/22 0951 HEMOGLOBIN A1C - [facility] % 9.8* 9.8* 12.3* Results for JULIANO BECK ( ) as of 11/22/2021 14:51 Ref. Range 02/25/2020 08:14 03/06/2020 11:10 05/09/2021 15:20 11/09/2021 09:26 Albumin / Creatinine Ratio, Urine Latest Ref Range: <30 mg/g Creat 43 (H) 108 (H) 375 (H) 275 (H) Invalid input(s): "URINALYSIS" No results for input(s): "MICROALBUMIN", "PROCRRATIO" in the last 83543 hours. Recent Labs Units 08/07/23 0907 08/07/23 0900 CLARITY, URINE - [facility] Clear -- GLUCOSE, URINE - [facility] mg/dL >=1000* -- BILIRUBIN, URINE - [facility] Negative -- KETONE, URINE - [facility] mg/dL Negative -- SPECIFIC GRAVITY, URINE - [facility] 1.011 -- BLOOD, URINE - [facility] Trace* -- PH, URINE - [facility] Units 6.5 -- PROTEIN, URINE - [facility] mg/dL 100* -- PROTEIN, RANDOM URINE - [facility] mg/dL 170 169 UROBILINOGEN, URINE - [facility] mg/dL Normal -- NITRITE, URINE - [facility] Negative -- ESTERASE, URINE - [facility] Negative -- BACTERIA, URINE - [facility] /HPF 0-25 -- WBC, URINE - [facility] /HPF 0-2 -- RBC, URINE - [facility] /HPF 6-9* -- Recent Labs Units 08/07/23 0900 07/08/23 1102 05/28/23 1447 SODIUM - [facility] mmol/L 140 141 136 POTASSIUM - [facility] mmol/L 3.8 3.8 4.3 CHLORIDE - [facility] mmol/L 99 100 94* CO2 - [facility] mmol/L 29 29 31 ESTIMATED GLOMERULAR FILTRATION RATE - [facility] mL/min 40* 40* 38* BUN - [facility] mg/dL 26* 37* 28* CREATININE - [facility] mg/dL 1.7* 1.7* 1.8* Recent Labs Units 09/16/23 1037 08/21/23 0959 08/07/23 0900 HGB g/dL 14.1 14.0 14.2 Recent Labs Units 08/07/23 0900 07/08/23 1102 05/28/23 1447 05/02/23 0949 11/29/22 0951 CALCIUM - [facility] mg/dL 9.2 9.0 8.8 < > -- PHOSPHORUS - [facility] mg/dL 3.4 -- -- -- 3.1 PTH - [facility] pg/mL 122* -- -- -- -- < > = values in this interval not displayed. Recent Labs Units 09/16/23 1037 07/08/23 1102 11/29/22 0951 HEMOGLOBIN A1C - [facility] % 9.8* 9.8* 12.3* Recent Labs Units 08/07/23 0907 04/30/24 1105 ALBUMIN / CREATININE RATIO, URINE - [facility] mg/g Creat -- 2,992* PROTEIN/ CREATININE RATIO, URINE - [facility] mg/g 3,864* -- ASSESSMENT AND PLAN: Stage 3b chronic kidney disease (HCC) (Primary) Patient with CKD 3B with GFR of 40 creatinine of 1.7 and has been at this range since 2020. There was a sudden drop in his GFR between 2019 and 2019 but since then has been steady at around the same level. He has had workup done for evaluation of edema which is causing lot of concern to thepatient. No edema today on a higher dose of Lasix 40 daily. He has had echocardiogram done which was fairly normal. Also had a discussion about extremely high blood glucose. He frequently gets reading in the 300+ 400 and even 500+ at times. These type of extreme hyperglycemia causes significant hemodynamic shift even in the short term causing significant problems with volume status. Labs as below today - NEPHROLOGY FOLLOW UP APPT (DEPARTMENT USE ONLY); Future; Expected date: 10/10/2024 - CBC WITH WBC DIFFERENTIAL; Future; Expected date: 04/12/2024 - HEMOGLOBIN A1C; Future; Expected date: 04/12/2024 - PTH; Future; Expected date: 04/12/2024 - RENAL FUNCTION PANEL; Future; Expected date: 04/12/2024 - PROTEIN/ CREATININE RATIO, URINE; Future; Expected date: 04/12/2024 - URINALYSIS WITH MICROSCOPIC EXAM; Future; Expected date: 04/12/2024 - 25-HYDROXY VITAMIN D; Future; Expected date: 04/12/2024 - MAGNESIUM; Future; Expected date: 04/12/2024 - ALBUMIN / CREATININE RATIO, URINE; Future; Expected date: 04/12/2024 Proteinuria, unspecified type Last check proteinuria showed almost 3 g of proteinuria likely related with diabetes. Albumin last checked was normal. So not a classic nephrotic syndrome but in general diabetic kidney disease with significant proteinuria does tend to have more problem with edema. already ruled out paraprotein related disease Patient is already on lisinopril 40. Would recommend using Jardiance to lower proteinuria and renal protective effect. He was briefly onthat but has been taken off and I do not know the details and neither does the patient. Will be sending message to primary care about this - NEPHROLOGY FOLLOW UP APPT (DEPARTMENT USE ONLY); Future; Expected date: 10/10/2024 - ALBUMIN / CREATININE RATIO, URINE; Future; Expected date: 04/12/2024 Type 2 diabetes mellitus with hemoglobin A1c goal of less than 8.0% (HCC) Diabetes is not controlled. He seems to be having polyuria and polydipsia. His last A1c was 9.8% inJuly 2023 and will check again today. Currently on metformin but would recommend to use Jardiance or similar medications to lower the A1cas well as renal protective and cardioprotective effect. - HEMOGLOBIN A1C; Future; Expected date: 04/12/2024 Jacky Macdonald MD documented in this encounter Nursing Notes * Priscilla Deal LPN - 04/12/2024 2:31 PM EST Chief Complaint Patient presents with Chronic Kidney Disease (CKD) documented in this encounter Plan of Treatment Upcoming Encounters Date Type Department Care Team (Late st Contact Info) Description 07/08/2024 11:15 AM EDT Imaging Radiology [address] [place] [id number] 09/17/2024 3:30 PM EDT [facility] [address] [address] Piyush Kee PA-C [address] [place] [phone] 12/08/2024 1:40 PM EDT Office Visit Dermatology [address] [place] [address] Miranda Zamora PA-C [address] [place] [address] [place] [id number] 12/22/2024 4:00 PM EDT Office Visit Nephrology, [facility] [address] [place] [address] Jacky Macdonald MD [address] [place] [address] Pending Results Name Type Priority Associated Diagnoses Date /Time PTH Lab Routine Stage 3b chronic kidney disease (HCC) 04/12/2024 3:26 PM EST RENAL FUNCTION PANEL Lab Routine Stage 3b chronic kidney disease (HCC) 04/12/2024 3:26 PM EST PROTEIN/ CREATININE RATIO, URINE Lab Routine Stage 3b chronic kidney disease (HCC) 04/12/2024 3:28 PM EST URINALYSIS WITH MICROSCOPIC EXAM Lab Routine Stage 3b chronic kidney disease (HCC) 04/12/2024 3:28 PM EST 25-HYDROXY VITAMIN D Lab Routine Stage 3b chronic kidney disease (HCC) 04/12/2024 3:26 PM EST MAGNESIUM Lab Routine Stage 3b chronic kidney disease (HCC) 04/12/2024 3:26 PM EST Scheduled Orders Name Type Priority Associated Diagnoses Orde r Schedule PTH Lab Routine Stage 3b chronic kidney disease (HCC) Expected: 04/12/2024 (Approximate), Expires: 10/09/2024 RENAL FUNCTION PANEL Lab Routine Stage 3b chronic kidney disease (HCC) Expected: 04/12/2024 (Approximate), Expires: 10/09/2024 PROTEIN/ CREATININE RATIO, URINE Lab Routine Stage 3b chronic kidney disease (HCC) Expected: 04/12/2024 (Approximate), Expires: 10/09/2024 URINALYSIS WITH MICROSCOPIC EXAM Lab Routine Stage 3b chronic kidney disease (HCC) Expected: 04/12/2024 (Approximate), Expires: 10/09/2024 25-HYDROXY VITAMIN D Lab Routine Stage 3b chronic kidney disease (HCC) Expected: 04/12/2024 (Approximate), Expires: 10/09/2024 MAGNESIUM Lab Routine Stage 3b chronic kidney disease (HCC) Expected: 04/12/2024 (Approximate), Expires: 10/09/2024 Health Maintenance Due Date Last Done Comments Adult Wellness Visit 08/13/2022 08/13/2021, 04/21/19 21 Depression Screening 08/13/2022 08/13/2021 B-12 09/26/2023 09/25/2022, 12/11/2020, 09/21/2019, Additional history exists COVID-19 Vaccine ( season) 2023 02/06/2022, 01/15/2021, 05/02/2020, Additional history exists Influenza Vaccine (FLU shot) (#1) 2023 04/24/2023, 01/20/2023, 12/28/2021, Additional history exists GFR 02/07/2024 08/07/2023, 06/10, 05/28/2023, Additional history exists Albumin/Creatinine Ratio 07/07/2024 025, 07/08/2023, 11/28/2021, Additional history exists CKD PHOS USE SMARTSET 16263 08/06/202407/10, 11/29/2022, 11/09/2021, Additional history exists Diabetic Foot Exam 09/08/2024 09/09/2023, 0 05/27/2022, 08/13/2021, Additional history exists Diabetic Eye Exam 09/29/2024 09/30/2023, , 01/11/2021, Additional history exists HbA1c 10/10/2024 04/12/2024, 07/0 11/2023, 07/08/2023, Additional history exists Colonoscopy 11/15/2024 11/15/2021, 05/0 04/2016, 11/29/2008, Additional history exists CKD HGB USE SMARTSET 19251 04/12/202504/12, 04/12/2024, 09/16/2023, Additional history exists DTap/Tdap [...] Not on filedocumented as of this encounter Results * (ABNORMAL) ALBUMIN / CREATININE RATIO, URINE (04/12/2024 3:28 PM EST) Albumin, Random Urine 148.00 mg/dL 04/13/2024 5:15 AM EST [facility] Creatinine, Random Urine 55 mg/dL 04/13/2024 5:15 AM EST [facility] Albumin / Creatinine Ratio, Urine 2,691(H) <30 mg/g Creat 04/13/2024 5:15 AM EST [facility] Urine Urine specimen obtained by clean catch procedure / Unknown Non-blood Collection / Unknown 04/12/2024 3:28 PM EST 04/12/2024 3:28 PM EST Narrative [facility] [place] 04/13/2024 5:15 AM EST Normal: <30 mg/g creatinine High: 30-300 mg/g creatinine Very High: >300 mg/g creatinine Nephrotic: >2200 mg/g creatinine Jacky Macdonald MD LAB URINE ORDERABLES Final Res ult Performing Organization Address [facility] de Phone Number [facility] [address] [place] [address] * (ABNORMAL) HEMOGLOBIN A1C (04/12/2024 3:26 PM EST) Hemoglobin A1C 11.5(H) 4.0 - 5.6 % 04/13/2024 4:14 AM EST [facility] Comment:The use of HbA1c to monitor glycemic status is based on normal hemoglobin and HbA composition. This test should not be used in patients with abnormal hemoglobin that affects the half life of the red blood cell or the in vivo glycation rates. Estimated Average Glucose 283(H) <126 mg/dL 04/13/2024 4:14 AM EST [facility] Blood Venous blood specimen / Unknown Venipuncture / Unknown 04/12/2024 3:26 PM EST 04/12/2024 3:26 PM EST Jacky Macdonald MD LAB BLOOD ORDERABLES Final Res ult Performing Organization Address 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
--- OUTSIDE RECORDS SUMMARY | 2024-04-30 23:04 | External Medical Summary ---
Author Name Unknown Address Unknown Organization [id number]:[facility] [place] [address] [place] [address] Laboratory Report Ordering Provider Test Date Status CLARICE ULLOA 04/12/2024 15:28:33 Final Normal: <150 mg/ g creatinine
High: 150-500 mg/g creatinine
Very High: >500 mg/g creatinine
Nephrotic: >3000 mg/g creatinine Observation Date Value Abnormality Reference (Units ) Status Protein/Creatinine [Ratio] in Urine 04/12/2024 15:28:33 4698 Above high normal <150 (mg/g ) Final Protein, Urine 04/12/2024 15:28:33 249 (mg/dL) Final Creatinine, Urine 04/12/2024 15:28:33 53 (mg/dL) Final Performing Location [facility] [place] [address] [place] [address]
--- OUTSIDE RECORDS SUMMARY | 2024-04-30 23:04 | External Medical Summary ---
Author Name Unknown Address Unknown Organization [id number]:[facility] [address] [address] Laboratory Report Ordering Provider Test Date Status ARTEMIOCLARICE 04/12/2024 15:26:59 Final Observation Date Value Abnormality Reference (Units ) Status Nucleated erythrocytes/100 leukocytes [Ratio] in Blood by Automated count 04/12/2024 15:26:59 Final Performing Location [facility] [place] [address]
--- OUTSIDE RECORDS SUMMARY | 2024-04-30 23:05 | External Medical Summary | Summary of Care ---
Author Name Unknown Organization [facility] Address [address] [place] [address] Phone [phone] Care Team Providers Care Tow Motor Mechanic Name Role Phone Bo Renteria MD Primary Care Provider [phone] Reason for Visit * Reason Comments Follow Up Encounter Details Date Type Department Care Team (Late st Contact Info) Description 03/01/2024 1:30 PM EST Office Visit Cardiology, [facility] [address] [place] [address] Alan Bejarano, [address] [place] [place] [address] Coronary artery disease involving yuhaaviatam coronary artery of yuhaaviatam heart without angina pectoris*; Essential hypertension with goal blood pressure less than 140/90; Asymptomatic bilateral carotid artery stenosis; Dyslipidemia Allergies Active Allergy Reactions Criticality Noted Date Comments Salicylates 02/09/2002 stomach upset documented as of this encounter (statuses as of 03/01/2024) Medications ASPIRIN EC 81 MG PO TBEC Take by mouth daily. Active Blood Glucose Monitoring Suppl (GreenPocket VERIO FLEX SYSTEM) w/Device KITIndications:T ype 2 diabetes mellitus with hemoglobin A1c goal of less than 8.0% ([facility]) Use as directed. 1 Kit 0 Active Nitroglycerin 0.4 MG Sublingual Tablet Sublingual (Nitrostat) Place under the tongue 1 Tablet every 5 minutes as needed for Pain, Chest. up to 3 doses in 15 minutes 25 Tablet 3 2 Active Additional Information Patient not taking.Reported on 03/01/2024 Diclofenac Sodium 1 % External Gel (Voltaren) Apply 2 g topically to affected area in the morning and 2 g before bedtime. Apply to right ankle. 2 g 3 Active OneTouch Delica Plus [id number] ions:Type 2 diabetes mellitus with hemoglobin A1c [...] E11.9 30 mL 5 4 Active Pen [place] 32G X 4 MMIndications:Ty pe 2 diabetes mellitus with hemoglobin A1c goal of less than 8.0% (HCC) Use as directed. Use to inject insulin four times daily E11.9 400 Each 3 4 Active Empagliflozin 10 MG Oral Tablet (Jardiance)Indic ations:Type 2 diabetes mellitus with hemoglobin A1c goal of less than 8.0% (HCC) Take 1 Tablet by mouth in the morning. 90 Tablet 3 4 Active Lisinopril 40 MG Oral TabletIndication s:Essential hypertension with goal blood pressure less than 140/90,Coronary artery disease involving yuhaaviatam coronary artery of yuhaaviatam heart without angina pectoris Take 1 Tablet [...] as of this encounter (statuses as of 03/01/2024) Active Problems Problem Noted Date Diagnosed Date Gouty arthropathy 11/29/2022 Stage 3b chronic kidney disease 05/27/2022 Coronary artery disease invo lving yuhaaviatam coronary artery of yuhaaviatam heart without angina pectoris 03/19/2019 BPH with [...] as of this encounter (statuses as of 03/01/2024) Resolved Problems Problem Noted Date Diagnosed Date [...] as of this encounter (statuses as of 03/01/2024) Immunizations Name Administration Dates Next Due COVID-19 [...] Sign Reading Time Taken Comments Blood Pressure 156/88 03/01/2024 1:27 PM EST Pulse 96 03/01/2024 1:27 PM EST Temperature - - Respiratory Rate 16 03/01/2024 1:27 PM EST Oxygen Saturation - - Inhaled Oxygen Concentration - - Weight 70.3 kg (154 lb 14.4 oz) 03/01/2024 1:27 PM EST Height - - Body Mass Index 21.91 09/09/2023 8:56 AM EDT documented in this encounter Progress Notes * Alan Bejarano, DO - 03/01/2024 1:24 PM EST 03/01/2024 Cardiology Follow Up SUBJECTIVE: History of Present Illness Varinder Grace, an 78-year-old individual with a history of chronic coronary heart disease, diabetes, and carotid disease, presents for a routine cardiology follow-up. The patient's primary concern is a persistent issue with his right foot, which has been ongoing since November of the previous year. The patient denies any pain but reports a limp. He has previously consulted with orthopedics, who suggested arthritis as a possible cause. The patient's dizziness has reportedly been well-managed, and he denies any recent chest pains. However, he has been experiencing elevated blood sugar levels, with a recent hemoglobin A1c of 9.8%. The patient reports that his blood sugar levels have been normal for the past month since moving residences. The patient also mentions balance issues, which have resulted in frequent falls. Despite these health concerns, the patient remains active and has plans to travel for the holidays. Problem List: chronic coronary heart disease, cardiac catheterization in September, revealed chronic total occlusion of the LAD at the level of first diagonal with the mid and distal LAD territory supplied via [id number] collaterals Hypertension Asymptomatic moderate bilateral carotid occlusive disease status post remote bilateral carotid endarterectomy surgery History of palpitations Dyslipidemia Extensive ROS: All systems reviewed & are unremarkable except as noted in HPI & below Cardiovascular (chest pain/palpitations/fluttering/diaphoresis/dyspnea on exertion/paroxysmally nocturnal dyspnea):Negative Review of patient's allergies indicates: Allergen Reactions Salicylates stomach upset Current Outpatient Medications Medication Sig Dispense Refill ASPIRIN EC 81 MG PO TBEC Take by mouth daily. Blood Glucose Monitoring Suppl (GreenPocket VERIO FLEX SYSTEM) w/Device KIT Use as [...] Apply to right ankle. 2 g 0 Life800 Delica Plus [id number] test blood sugar once daily dx e11.9 100 Each 3 OneTouch Verio In Vitro Strip (Glucose Blood) test blood sugar once daily dx e11.9 100 Strip 3 Insulin Glargine Solostar 100 UNIT/ML Subcutaneous Solution Pen-injector (Lantus SoloStar) Inject 35 Units under the skin every evening. E11.9 30 mL 5 Pen [place] 32G X 4 MM Use as directed. Use to inject insulin four times daily E11.9 400 Each 3 Empagliflozin 10 MG Oral Tablet (Jardiance) Take 1 Tablet by mouth in the morning. 90 Tablet 3 Lisinopril 40 MG Oral Tablet Take [...] mouth in the morning. 90 Tablet 1 No current facility-administered medications for this visit. OBJECTIVE/PHYSICAL EXAMINATION: BP 156/88 (BP Site: Left Arm) | Pulse 96 | Resp 16 | Wt 70.3 kg (154 lb 14.4 oz) | BMI 21.91 kg/m| BSA 1.87 m General: no acute distress and stated age Eyes: conjunctiva are pink and non-injected, sclera clear Neck: normal jugular venous pulse, no hepatojugular reflux Chest: normal shape and normal respiratory effort Lungs: clear to auscultation , no rales rhonchi or wheezing Cardiac Exam: - regular heart sounds, no murmurs, rubs, or gallops Abdomen: abdomen soft, non-tender, no abnormal masses and no hepatosplenomegaly Musculoskeletal: no gait disturbance, no weakness Extremities: no edema and no cyanosis Neuro: grossly normal exam Psych: appropriate affect and insight. Data: Results LABS Hemoglobin A1c: 9.8% LDL cholesterol: 60 mg/dL (04/2023) RADIOLOGY Carotid duplex: Moderate degree of atherosclerotic plaque unchanged compared to the previous (07/2023) Summary of transthoracic echocardiogram performed 04/29/2023: There was normal sinus rhythm during the examination. The LV wall thickness is mildly increased (concentric). The left ventricular wall motion is normal. Calculated LV ejection Fraction = 64% (bi-plane method of discs). Mild aortic valve sclerosis is present. Aortic stenosis is absent. The left ventricular diastolic function is mildly abnormal (grade I). Summary of carotid duplex obtained 07/15/2023: Right carotid artery duplex examination indicates evidence of 50-69% stenosis of the internal carotid artery. Left carotid artery duplex examination indicates evidence of 50-69% stenosis of the internal carotid artery. Latest Reference Range & Units 11/29/22 09:51 07/08/23 11:02 09/16/23 10:37 Hemoglobin A1C 4.0 - 5.6 % 12.3 (H) 9.8 (H) 9.8 (H) (H): Data is abnormally high Assessment & Plan Chronic Coronary Heart Disease without angina Chronic coronary heart disease with a history of high grade stenosis in the left anterior descending coronary artery. Asymptomatic and well-managed with current medications. Risks include bleeding (aspirin), hypotension (amlodipine, metoprolol, lisinopril), and myopathy (atorvastatin). Benefits include reduced risk of myocardial infarction and stroke. No surgical intervention required at this time. - Continue aspirin 81 mg daily - Continue amlodipine - Continue metoprolol - Continue lisinopril - Continue atorvastatin 80 mg daily Carotid Artery Disease Moderate cholesterol plaque buildup in the carotid arteries, unchanged from previous assessment. Risks include stroke. Benefits of monitoring include early detection of progression. - Recheck carotid duplex in July 2024 Hypertension Hypertension with current blood pressure slightly elevated. Permissive hypertension management due to balance issues. Risks include hypotension and electrolyte imbalance (furosemide). Benefits include reduced risk of stroke and heart failure. - Continue amlodipine 5 mg - Continue furosemide 40 mg - Continue lisinopril 40 mg daily - Continue metoprolol Hyperlipidemia Hyperlipidemia with well-controlled LDL cholesterol at 60 mg/dL as of April 2023. Risks include myopathy and liver enzyme elevation (atorvastatin). Benefits include reduced risk of cardiovascular events. - Continue atorvastatin 80 mg daily Type 2 Diabetes Mellitus Type 2 diabetes mellitus with a recent hemoglobin A1c of 9.8%. Blood sugar levels reported as normal (100-110 mg/dL) since moving to a new residence. Current medications include metformin and Jardiance, which also benefit cardiovascular health. Risks include gastrointestinal upset (metformin) and ur inary tract infections (Jardiance). - Continue metformin - Continue Jardiance Right Foot Limping Chronic right foot limping since November 2022. Orthopedic evaluation suggested arthritis. No painreported, only limping. No immediate intervention required. Consider follow-up with orthopedics if symptoms persist or worsen. - Consider follow-up with orthopedics if symptoms persist or worsen Follow Up: Return in about 6 months (around 08/30/2024) for Clinic Visit. | For: Clinic Visit Patient seen in longitudinal follow up of the above issues with assessment and plan as documented. Alan Bejarano DO Cardiology, [facility] [address] [facility] [place] [address] Text in this note was generated using an SmartRx documentation service. I discussed the use of a device to record and summarize our discussion today. All persons present during the encounter consented to its use. documented in this encounter Nursing Notes * Izabela Matthew CMA - 03/01/2024 1:21 PM EST Examination Room: 10 Name: Varinder Grace Date of : (1945). Reason for Visit: Follow-up Interim Hospitalization(s): denies Problems/Concerns: States he is "feeling like crap", he complains of limping d/t right foot for about a year. PCP stated he has arthritis of foot. Chest Pain/SOB: denies [facility] Discussed: Yes [facility] is a way you can talk to your provider online through e-mail. Would you like to sign up? I can activate it for you? ALREADY ACTIVE Patient was instructed to not get up on the exam table until directed and assisted by their provider; patient is to remain seated in the chair/ wheelchair/ exam table for fall prevention and safety reasons. Patient is aware to have assistance to step down off exam table with personnel. Patient voiced full comprehension of instructions. documented in this encounter Plan of Treatment Upcoming Encounters Date Type Department Care Team (Late st Contact Info) Description 03/16/2024 4:00 PM EST Office Visit Family Practice [facility] [address] [place] [id number] Bo Renteria MD [address] [place] [address] 04/12/2024 2:20 PM EST Office Visit Nephrology, [facility] [address] [place] [address] Jacky Macdonald MD [address] [place] [address] 07/08/2024 11:15 AM EDT Imaging Radiology [address] [place] [address] 09/17/2024 3:30 PM EDT Office Visit Cardiology, [facility] [address] [place] [place] [address] Piyush Kee PA-C [address] [place] [address] 12/08/2024 1:40 PM EDT Office Visit Dermatology [address] [place] [address] Miranda Zamora PA-C [address] [place] [address] [place] [address] Health Maintenance Due Date Last Done Comments [...] Additional history exists CKD PHOS USE SMARTSET 68507 08/06/2024 053 , 11/29/2022, 11/09/2021, Additional history exists Diabetic Foot Exam 09/08/2024 09/09/2023, 0 05/27/2022, 08/13/2021, Additional history exists CKD HGB USE SMARTSET 83261 09/15/202409/15, 09/16/2023, 08/21/2023, Additional history exists Diabetic Eye Exam 09/29/2024 09/30/2023, , 01/11/2021, Additional history exists Colonoscopy 11/15/2024 11/15/2021, 050 04/2016, 11/29/2008, Additional history exists DTap/Tdap Vaccines (3 - Td or Tdap) 12/23/2027 12/22/2017, 09/09/2007 Pneumococcal Vaccine: 65+ Years Completed 05/16/2016, 01/09/2012, 11/14/2005 HPV (Gardasil) [...] as of this encounter Visit Diagnoses Diagnosis Coronary artery disease involving yuhaaviatam coronary artery of yuhaaviatam heart without angina pectoris- Primary Essential hypertension with goal blood pressure less than 140/90 Asymptomatic bilateral carotid artery stenosis Occlusion and stenosis of multiple and bilateral precerebral arteries without mention of cerebral infarction Dyslipidemia Other and unspecified hyperlipidemia documented in this encounter Advance Directives Documents on File Type Date Recorded Patient Tin Pot Operator Expl anation Advance Directives and Kenan henriquez Will 07/12/2011 ADVANCE DIRECTIVE Power of Product Marketing Coordinator 07/12/2011 POWER OF A TTORNEY Care Teams Tow Motor Mechanic Relationship Specialty Start Date End Date Bo Renteria MD [address] [place] [address] PCP - General Family Medicine 06/22/20 documented as of this encounter
--- OUTSIDE RECORDS SUMMARY | 2024-04-30 23:05 | External Medical Summary | Summary of Care ---
Author Name Unknown Organization [facility] Address [address] [facility] [place] [address] Phone [phone] Care Team Providers Care Material Clerk Name Role Phone Bo Renteria MD Primary Care Provider [phone] Reason for Visit * Reason Comments Dosage Adjustment Via Phone (anticoag Cl inic) Encounter Details Date Type Department Care Team (Late st Contact Info) Description 01/23/2024 6:10 PM [facility] Pharm[facility], [facility] [address] [facility] [address] [facility] [address] [place] [address] Type 2 diabetes mellitus with hemoglobin A1c goal of less than 8.0% ([facility])* Allergies Active Allergy Reactions Criticality Noted Date Comments Salicylates 02/09/2002 stomach upset documented as of this encounter (statuses as of 01/22/2024) Medications ASPIRIN EC 81 MG PO TBEC Take by mouth daily. Active Blood Glucose Monitoring Suppl ([employer] VERIO FLEX SYSTEM) w/Device KITIndications:T ype 2 diabetes mellitus with hemoglobin A1c goal of less than 8.0% ([facility]) Use as directed. 1 Kit 0 Active Nitroglycerin 0.4 MG Sublingual Tablet Sublingual (Nitrostat) Place under the tongue 1 Tablet every 5 minutes as needed for Pain, Chest. up to 3 doses in 15 minutes 25 Tablet 3 2 Active amLODIPine Besylate 5 MG Oral Tablet (Norvasc)Indicat ions:Albuminuria ,Hypertension, unspecified type Take 1 tab daily at night 90 Tablet 3 3 Active Diclofenac Sodium 1 % External Gel (Voltaren) Apply 2 g topically to affected area in the morning and 2 g before bedtime. Apply to right ankle. 2 g 3 Active OneTouch Delica Plus [id number] ions:Type 2 diabetes mellitus with hemoglobin A1c [...] evening. E11.9 30 mL 5 4 Active Metoprolol Succinate ER 100 MG Oral Tablet Extended Release 24 Hour (toPROL XL)Indications:P alpitations take one and 1/2 tablet daily 135 Tablet 2 4 Active Additional Information Patient taking differently: Daily(AM), take one and 1/2 tablet daily, Reported on 07/28/2023 Pen [place] 32G X 4 MMIndications:Ty pe 2 diabetes [...] pressure less than 140/90,Coronary artery disease involving north fork coronary artery of north fork heart without angina pectoris Take 1 Tablet by mouth in the morning. 90 Tablet 3 4 Active Furosemide 40 MG Oral Tablet (Lasix) Take 1 Tablet by mouth in the morning. 90 Tablet 3 4 Active Atorvastatin Calcium 80 MG Oral Tablet (Lipitor)Indicat ions:Chronic ischemic heart disease,Dyslipid emia, goal LDL below 70 Take 1 Tablet by mouth in the morning. 90 Tablet 1 4 Active Allopurinol 100 MG Oral Tablet (Zyloprim) Take 1 Tablet by mouth in the morning. 90 Tablet 1 4 Active metFORMIN HCl 500 MG Oral Tablet (Glucophage)Gabriela cations:Type 2 diabetes mellitus with hemoglobin A1c goal of less than 8.0% (HCC) Take 1 Tablet by mouth 2 times a day with morning and evening meals. 180 Tablet 3 4 Active documented as of this encounter (statuses as of 01/22/2024) Active Problems Problem Noted Date Diagnosed Date Gouty arthropathy 11/29/2022 Stage 3b chronic kidney disease 05/27/2022 Coronary artery disease invo lving north fork coronary artery of north fork heart without angina pectoris 03/19/2019 BPH with [...] as of this encounter (statuses as of 01/22/2024) Resolved Problems Problem Noted Date Diagnosed Date [...] as of this encounter (statuses as of 01/22/2024) Immunizations Name Administration Dates Next Due COVID-19 [...] on file documented as of this encounter Progress Notes * Cristina Caba CPhT - 01/22/2024 2:10 PM EST Patient has not contacted the clinic to schedule/reschedule an appointment for DM management per referral from PCP despite multiple attempts to do so by our team. Patient is discharged from [facility] services at this time. documented in this encounter Plan of Treatment Upcoming Encounters Date Type Department Care Team (Late st Contact Info) Description 03/01/2024 1:30 PM EST Office Visit Cardiology, [facility] [address] [place] [address] Alan Bejarano DO [address] [place] [address] 03/16/2024 4:00 PM EST Office Visit Family Practice [facility] [address] [place] [address] Bo Renteria MD [address] [place] [address] 04/12/2024 2:20 PM EST Office Visit Nephrology, [facility] [address] [place] [address] Jacky Macdonald MD [address] [place] [address] 07/08/2024 11:15 AM EDT Imaging Radiology [address] [place] [address] 12/08/2024 1:40 PM EDT Office Visit Dermatology [address] [place] [address] Miranda Zamora PA-C [address] [place] [address] [place] [address] Health Maintenance Due Date Last Done Comments [...] Additional history exists CKD PHOS USE SMARTSET 30041 08/06/2024 05/3 , 11/29/2022, 11/09/2021, Additional history exists Diabetic Foot Exam 09/08/2024 09/09/2023, 0 05/27/2022, 08/13/2021, Additional history exists CKD HGB USE SMARTSET 24729 09/15/202409/15, 09/16/2023, 08/21/2023, Additional history exists Diabetic Eye Exam 09/29/2024 09/30/2023, , 01/11/2021, Additional history exists Colonoscopy 11/15/2024 11/15/2021, 04/2016, 11/29/2008, Additional history exists DTap/Tdap Vaccines [...] hemoglobin A1c goal of less than 8.0% (HCC)- Primary documented in this encounter Advance Directives Documents on File Type Date Recorded 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
--- OUTSIDE RECORDS SUMMARY | 2024-04-30 23:05 | External Medical Summary | Summary of Care ---
Author Name Unknown Organization [facility] Address [address] [facility] [place] [address] Phone [phone] Care Team Providers Care Structural Biologist Name Role Phone Teo Tran MD Primary Care Provider [phone] Reason for Visit * Reason Onset Date Comments Medication Refill 02/26/2024 Encounter Details Date Type Department Care Team (Late st Contact Info) Description 02/26/2024 Refill Family [facility] [address] [place] [address] Teo Tran MD [address] [place] [address] Palpitations Allergies Active Allergy Reactions Criticality Noted Date Comments Salicylates 02/09/2002 stomach upset documented as of this encounter (statuses as of 02/26/2024) Medications ASPIRIN EC 81 MG PO TBEC Take by mouth daily. Active Blood Glucose Monitoring Suppl ([employer] VERIO FLEX SYSTEM) w/Device KITIndications:T ype 2 diabetes mellitus with hemoglobin A1c goal of less than 8.0% ([facility]) Use as directed. 1 Kit 0 Active [...] 2 g 3 Active OneTouch Delica Plus [id number] ions:Type 2 diabetes mellitus with hemoglobin A1c [...] E11.9 30 mL 5 4 Active Pen [place] 32G X 4 MMIndications:Ty pe 2 diabetes [...] pressure less than 140/90,Coronary artery disease involving [place] coronary artery of [place] heart without angina pectoris Take 1 Tablet [...] 1/2 tablet daily 135 Tablet 2 4 02/26/20 24 Discontin ued(Refil l) Allopurinol 100 MG Oral Tablet (Zyloprim) Take 1 Tablet by mouth in the morning. 90 Tablet 1 4 02/26/20 24 Discontin ued(Refil l) documented as of this encounter (statuses as of 02/26/2024) Active Problems Problem Noted Date Diagnosed Date Gouty arthropathy 11/29/2022 Stage 3b chronic kidney disease 05/27/2022 Coronary artery disease invo lving [place] coronary artery of [place] heart without angina pectoris 03/19/2019 BPH with [...] as of this encounter (statuses as of 02/26/2024) Resolved Problems Problem Noted Date Diagnosed Date [...] #16. INHIBITED SEX EXCITEMENT 10/2013 Mixed dyslipidemia Overview (02/23/2009): Per Lipid Taxonomy. Type 2 diabetes mellitus wit h hemoglobin A1c goal of less than 7.0% 01/05/2009 Overview (07/04/2015): Per Diabetes Taxonomy. ICD-10 update of inactive term Type 2 diabetes mellitus wit h hemoglobin A1c goal of less than 8.0% 01/13/2014 Overview (07/06/2015): ICD-10 update of inactive term documented as of this encounter (statuses as of 02/26/2024) Immunizations Name Administration Dates Next Due COVID-19 [...] encounter Miscellaneous Notes * Telephone Encounter - Gerard Paul, [facility] - 02/26/2024 8:32 AM ESTSigned Prescriptions: Disp Refills Metoprolol Succinate ER 100 MG Oral Tablet*135 Ta*1 Sig: take one and 1/2 tablet dailyAuthorizing Provider: TEO TRAN User: GERARD BURRIS Allopurinol 100 MG Oral Tablet (Zyloprim) 90 Tab*1 Sig: Take 1 Tablet by mouth in the morning.Authorizing Provider: TEO TRAN User: GERARD BURRIS documented in this encounter Plan of Treatment Upcoming Encounters Date Type Department Care Team (Late st Contact Info) Description 03/01/2024 1:30 PM EST Office Visit Cardiology, [facility] [address] [place] [address] Alan Bejarano, [address] [place] [address] 03/16/2024 4:00 PM EST Office Visit Family Practice [facility] [address] [place] [address] Teo Tran MD [address] [place] [address] 04/12/2024 2:20 PM EST Office Visit Nephrology, [facility] [address] [facility] [place] [address] Jacky Macdonald MD [address] [facility] [place] [address] 07/08/2024 11:15 AM EDT Imaging Radiology [address] [place] [address] 12/08/2024 1:40 PM EDT Office Visit Dermatology [address] [place] [address] Miranda Zamora PA-C [address] [place] [address] [place] [address] Health Maintenance Due Date Last Done Comments [...] Additional history exists CKD PHOS USE SMARTSET 38567 08/06/202407/10, 11/29/2022, 11/09/2021, Additional history exists Diabetic Foot Exam 09/08/2024 09/09/2023, 0 05/27/2022, 08/13/2021, Additional history exists CKD HGB USE SMARTSET 07495 09/15/202409/15, 09/16/2023, 08/21/2023, Additional history exists Diabetic [...] as of this encounter Visit Diagnoses Diagnosis Palpitations documented in this encounter Advance Directives Documents on File Type Date Recorded Patient Operations Support Analyst Expl anation Advance Directives and Kenan henriquez Will 07/12/2011 ADVANCE DIRECTIVE Power of Air Chief Marshal 07/12/2011 POWER OF A TTORNEY Care Teams Structural Biologist Relationship Specialty Start Date End Date Teo Tran MD [address] [place] [address] PCP - General Family Medicine 06/22/20 documented as of this encounter
--- OUTSIDE RECORDS SUMMARY | 2024-04-30 23:05 | External Medical Summary | Summary of Care ---
Author Name Unknown Organization [facility] Address [address] [facility] [address] Phone [phone] Care Team Providers Care Letter Carrier Name Role Phone Teo Tran MD Primary Care Provider [phone] Reason for Visit * Reason Onset Date Comments Medication Refill 02/12/2024 Encounter Details Date Type Department Care Team (Late st Contact Info) Description 02/12/2024 Refill Family [facility] [address] [place] [address] Teo Tran MD [address] [place] [address] CHR ISCHEMIC HRT DIS NOS; Dyslipidemia, goal LDL below 70 Allergies Active Allergy Reactions Criticality Noted Date Comments Salicylates 02/09/2002 stomach upset documented as of this encounter (statuses as of 02/13/2024) Medications ASPIRIN EC 81 MG PO TBEC Take by mouth daily. Active Blood Glucose Monitoring Suppl ([employer] VERIO FLEX SYSTEM) w/Device KITIndications:T ype 2 diabetes mellitus with hemoglobin A1c goal of less than 8.0% ([facility]) Use as directed. 1 Kit 11/17/19 20 [...] right ankle. 2 g 03/07/20 23 Active OneTouch Delica Plus [id number] ions:Type 2 diabetes mellitus with hemoglobin A1c goal of less than 8.0% ([facility]CC) test blood sugar once daily dx e11.9 100 Each 3 04/09/19 24 Active OneTouch Verio In Vitro Strip (Glucose Blood)Indication s:Type 2 diabetes mellitus with hemoglobin A1c goal of less than 8.0% (HCC) test blood sugar once daily dx e11.9 100 Strip 3 04/09/19 24 Active Insulin Glargine Solostar 100 UNIT/ML Subcutaneous Solution Pen-injector (Lantus SoloStar) Inject 35 Units under the skin every evening. E11.9 30 mL 5 05/13/19 24 Active Metoprolol Succinate ER 100 MG Oral Tablet Extended Release 24 Hour (toPROL XL)Indications:P alpitations take one and 1/2 tablet daily 135 Tablet 2 06/13/19 24 Active Additional Information Patient taking differently: Daily(AM), take one and 1/2 tablet daily, Reported on 07/28/2023 Pen [place] 32G X 4 MMIndications:Ty pe 2 diabetes mellitus with hemoglobin A1c goal of less than 8.0% (HCC) Use as directed. Use to inject insulin four times daily E11.9 400 Each 3 06/17/19 24 Active Empagliflozin 10 MG Oral Tablet (Jardiance)Indic ations:Type 2 diabetes mellitus with hemoglobin A1c goal of less than 8.0% (HCC) Take 1 Tablet by mouth in the morning. 90 Tablet 3 07/21/19 24 Active Lisinopril 40 MG Oral TabletIndication s:Essential hypertension with goal blood pressure less than 140/90,Coronary artery disease involving [place] coronary artery of [place] heart without angina pectoris Take 1 Tablet by mouth in the morning. 90 Tablet 3 07/28/19 24 Active Furosemide 40 MG Oral Tablet (Lasix) Take 1 Tablet by mouth in the morning. 90 Tablet 3 07/28/19 24 Active Allopurinol 100 MG Oral Tablet (Zyloprim) Take 1 Tablet by mouth in the morning. 90 Tablet 1 09/08/19 24 Active metFORMIN HCl 500 MG Oral [...] morning. 90 Tablet 1 02/13/20 24 Active Atorvastatin Calcium 80 MG Oral Tablet (Lipitor)Indicat ions:Chronic ischemic heart disease,Dyslipid emia, goal LDL below 70 Take 1 Tablet by mouth in the morning. 90 Tablet 1 08/13/19 24 024 Discontin ued(Refil l) documented as of this encounter (statuses as of 02/13/2024) Active Problems Problem Noted Date Diagnosed Date Gouty arthropathy 11/29/2022 Stage 3b chronic kidney disease 05/27/2022 Coronary artery disease invo lving [place] coronary artery of [place] heart without angina pectoris 03/19/2019 BPH with [...] as of this encounter (statuses as of 02/13/2024) Resolved Problems Problem Noted Date Diagnosed Date [...] as of this encounter (statuses as of 02/13/2024) Immunizations Name Administration Dates Next Due COVID-19 [...] encounter Miscellaneous Notes * Telephone Encounter - Naif Valentino RPh - 02/13/2024 2:24 PM ESTSigned Prescriptions: Disp Refills Atorvastatin Calcium 80 MG Oral Tablet (Li*90 Tab*1 Sig: Take 1 Tablet by mouth in the morning.Authorizing Provider: TEO TRAN User: NAIF VALENTINO documented in this encounter Plan of Treatment Upcoming Encounters Date Type Department Care Team (Late st Contact Info) Description 03/01/2024 1:30 PM EST Office Visit Cardiology, [facility] [address] [place] [address] Alan Bejarano DO [address] [place] [address] 03/16/2024 4:00 PM EST Office Visit Family Practice [facility] [address] [place] [address] Teo Tran MD [address] [place] [address] 04/12/2024 2:20 PM EST Office Visit Nephrology, [facility] [address] [place] [address] Jacky Macdonald MD [address] [place] [address] 07/08/2024 11:15 AM EDT Imaging Radiology [address] [place] [address] 12/08/2024 1:40 PM EDT Office Visit Dermatology [address] [place] [address] Miranda Zamora PA-C [address] [place] [address] [place] [address] Health Maintenance Due Date Last Done Comments [...] Additional history exists CKD PHOS USE SMARTSET 22924 08/06/202407/10, 11/29/2022, 11/09/2021, Additional history exists Diabetic Foot Exam 09/08/2024 09/09/2023, 0 05/27/2022, 08/13/2021, Additional history exists CKD HGB USE SMARTSET 39959 09/15/202409/15, 09/16/2023, 08/21/2023, Additional history exists Diabetic Eye Exam 09/29/2024 09/30/2023, , 01/11/2021, Additional history exists Colonoscopy 11/15/2024 11/15/2021, 0504/2016, 11/29/2008, Additional history exists DTap/Tdap Vaccines (3 [...] as of this encounter Visit Diagnoses Diagnosis CHR ISCHEMIC HRT DIS NOS Chronic ischemic heart disease, unspecified Dyslipidemia, goal LDL below 70 Other and unspecified hyperlipidemia documented in this encounter Advance Directives Documents on File Type Date Recorded Patient Type Disk Quality Control Supervisor Expl anation Advance Directives and Kenan Kasper 07/12/2011 ADVANCE DIRECTIVE Power of Sports Attorney 07/12/2011 POWER OF A TTORNEY Care Teams Letter Carrier Relationship Specialty Start Date End Date Teo Tran MD [address] [place] [address] PCP - General Family Medicine 06/22/20 documented as of this encounter
--- OUTSIDE RECORDS SUMMARY | 2024-04-30 23:05 | External Medical Summary | Summary of Care ---
Author Name Unknown Organization [facility] Address [address] [place] [address] Phone [phone] Care Team Providers Care Lead Software Engineer Name Role Phone Bo Renteria MD Primary Care Provider [phone] Encounter Details Date Type Department Care Team (Late st Contact Info) Description 02/02/2024 Orders Only Outcomes Research Department [address] [place] [address] Malathi Pandya CHRA [employer] [facility] Other*[id number] Allergies Active Allergy Reactions Criticality Noted Date Comments Salicylates 02/09/2002 stomach upset documented as of this encounter (statuses as of 02/02/2024) Medications ASPIRIN EC 81 MG PO TBEC Take by mouth daily. Active Blood Glucose Monitoring Suppl ([employer] VERIO FLEX SYSTEM) w/Device KITIndications:T ype 2 diabetes mellitus with hemoglobin A1c goal of less than 8.0% ([facility]) Use as directed. 1 Kit 0 Active [...] 2 g 3 Active OneTouch Delica Plus [id number] ions:Type 2 diabetes mellitus with hemoglobin A1c [...] 1/2 tablet daily, Reported on 07/28/2023 Pen [place] 32G X 4 MMIndications:Ty pe 2 diabetes [...] pressure less than 140/90,Coronary artery disease involving [place] coronary artery of [place] heart without angina pectoris Take 1 Tablet [...] as of this encounter (statuses as of 02/02/2024) Active Problems Problem Noted Date Diagnosed Date Gouty arthropathy 11/29/2022 Stage 3b chronic kidney disease 05/27/2022 Coronary artery disease invo lving [place] coronary artery of [place] heart without angina pectoris 03/19/2019 BPH with [...] as of this encounter (statuses as of 02/02/2024) Resolved Problems Problem Noted Date Diagnosed Date [...] as of this encounter (statuses as of 02/02/2024) Immunizations Name Administration Dates Next Due COVID-19 [...] 03/01/2024 1:30 PM EST Office Visit Cardiology, [facility] [address] [place] [address] Alan Bejarano, [address] [place] [address] 03/16/2024 4:00 PM EST Office Visit Family Practice [facility] [address] [place] [address] Bo Renteria MD [address] [place] [address] 04/12/2024 2:20 PM EST Office Visit Nephrology, [facility] [address] [place] [address] Jacky Macdonald MD [address] [place] [address] 07/08/2024 11:15 AM EDT Imaging Radiology [address] [place] [address] 12/08/2024 1:40 PM EDT Office Visit Dermatology [address] [place] [address] Miranda Zamora PA-C [address] [place] [address] [place] [address] Scheduled Orders Name Type Priority Associated Diagnoses Orde r Schedule MYCODE SUBSEQUENT ADULT Lab Routine [employer] [facility] Other*[id number] Every 6 Months for 2 Occurrences starting 02/02/2024 until 02/21/2025 Health Maintenance Due Date Last Done Comments [...] Additional history exists CKD PHOS USE SMARTSET 15537 08/06/2024 053 , 11/29/2022, 11/09/2021, Additional history exists Diabetic Foot Exam 09/08/2024 09/09/2023, 0 05/27/2022, 08/13/2021, Additional history exists CKD HGB USE SMARTSET 47744 09/15/202409/15, 09/16/2023, 08/21/2023, Additional history exists Diabetic [...] as of this encounter Visit Diagnoses Diagnosis [employer] [facility] Other*[id number] documented in this encounter Advance Directives Documents on File Type Date Recorded Patient Satellite Communications Operator Expl anation Advance Directives and Kenan henriquez Will 07/12/2011 ADVANCE DIRECTIVE Power of Window Shade Installer 07/12/2011 POWER OF A TTORNEY Care Teams Lead Software Engineer Relationship Specialty Start Date End Date Bo Renteria MD [address] [place] [address] PCP - General Family Medicine 06/22/20 documented as of this encounter
--- OUTSIDE RECORDS SUMMARY | 2024-04-30 23:05 | External Medical Summary | Summary of Care ---
Author Name Unknown Organization [facility] Address [address] [facility] [place] [address] Phone [phone] Care Team Providers Care Feed Management Advisor Name Role Phone Bo Renteria MD Primary Care Provider [phone] Reason for Visit * Reason Comments Appointment Encounter Details Date Type Department Care Team (Late st Contact Info) Description 11/27/2023 6:10 PM EDT Pharmacy Pharmacy, [facility] [address] [place] [address] [facility] [address] [place] [address] Type 2 diabetes mellitus with hemoglobin A1c goal of less than 8.0% ([facility])* Allergies Active Allergy Reactions Criticality Noted Date Comments Salicylates 02/09/2002 stomach upset documented as of this encounter (statuses as of 11/27/2023) Medications Medication Sig Dispensed Refills Start Date End Date Status ASPIRIN EC 81 MG PO TBEC Take by mouth daily. Active Blood Glucose Monitoring Suppl ([facility] VERIO FLEX SYSTEM) w/Device KITIndications:Type 2 diabetes mellitus with hemoglobin A1c goal of less than 8.0% ([facility]) Use as directed. 1 Kit 11/17/2019 Active Nitroglycerin 0.4 MG Sublingual Tablet Sublingual (Nitrostat) Place under the tongue 1 Tablet every 5 minutes as needed for Pain, Chest. up to 3 doses in 15 minutes 25 Tablet 3 05/03/2021 Active amLODIPine Besylate 5 MG Oral Tablet (Norvasc)Indication s:Albuminuria,Hyper tension, unspecified type Take 1 tab daily at night 90 Tablet 3 02/11/2023 Active Diclofenac Sodium 1 % External Gel (Voltaren) Apply 2 g topically to affected area in the morning and 2 g before bedtime. Apply to right ankle. 2 g 03/07/2023 Active OneTouch Delica Plus [id number] s:Type 2 diabetes mellitus with hemoglobin A1c goal of less than 8.0% (HCC) test blood sugar once daily dx e11.9 100 Each 3 04/09/2023 Active OneTouch Verio In Vitro Strip (Glucose Blood)Indications:T ype 2 diabetes mellitus with hemoglobin A1c goal of less than 8.0% (HCC) test blood sugar once daily dx e11.9 100 Strip 3 04/09/2023 Active Insulin Glargine Solostar 100 UNIT/ML Subcutaneous Solution Pen-injector (Lantus SoloStar) Inject 35 Units under the skin every evening. E11.9 30 mL 5 05/13/2023 Active Metoprolol Succinate ER 100 MG Oral Tablet Extended Release 24 Hour (toPROL XL)Indications:Palp itations take one and 1/2 tablet daily 135 Tablet 2 06/13/2023 Active Additional Information Patient taking differently: Daily(AM), take one and 1/2 tablet daily, Reported on 07/28/2023 Pen [place] 32G X 4 MMIndications:Type 2 diabetes mellitus with hemoglobin A1c goal of less than 8.0% (HCC) Use as directed. Use to inject insulin four times daily E11.9 400 Each 3 06/17/2023 Active Empagliflozin 10 MG Oral Tablet (Jardiance)Indicati ons:Type 2 diabetes mellitus with hemoglobin A1c goal of less than 8.0% (HCC) Take 1 Tablet by mouth in the morning. 90 Tablet 3 07/21/2023 Active Lisinopril 40 MG Oral TabletIndications:E ssential hypertension with goal blood pressure less than 140/90,Coronary artery disease involving ak chin coronary artery of ak chin heart without angina pectoris Take 1 Tablet by mouth in the morning. 90 Tablet 3 07/28/2023 Active Furosemide 40 MG Oral Tablet (Lasix) Take 1 Tablet by mouth in the morning. 90 Tablet 3 07/28/2023 Active Atorvastatin Calcium 80 MG Oral Tablet (Lipitor)Indication s:Chronic ischemic heart disease,Dyslipidemi a, goal LDL below 70 Take 1 Tablet by mouth in the morning. 90 Tablet 1 08/13/2023 Active Allopurinol 100 MG Oral Tablet (Zyloprim) Take 1 Tablet by mouth in the morning. 90 Tablet 1 09/08/2023 Active metFORMIN HCl 500 MG Oral Tablet (Glucophage)Indicat ions:Type 2 diabetes mellitus with hemoglobin A1c goal of less than 8.0% (HCC) Take 1 Tablet by mouth 2 times a day with morning and evening meals. 180 Tablet 3 11/22/2023 Active documented as of this encounter (statuses as of 11/27/2023) Active Problems Problem Noted Date Diagnosed Date Gouty arthropathy 11/29/2022 Stage 3b chronic kidney disease 05/27/2022 Coronary artery disease invo lving ak chin coronary artery of ak chin heart without angina pectoris 03/19/2019 BPH with obstruction/lower urinary tract symptom s 11/21/2013 Overview: Currently, doing very well on Avodart alone. Type 2 diabetes mellitus wit h hemoglobin A1c goal of less than 8.0% 09/15/2012 Overview: ICD-10 update of inactive term S/P carotid endarterectomy 03/09/2009 Dyslipidemia 02/23/2009 Overview: Per Lipid Taxonomy. HTN, goal below 130/80 documented as of this encounter (statuses as of 11/27/2023) Resolved Problems Problem Noted Date Diagnosed Date [...] hemoglobin A1c goal of 7.0%-8.0% 02/28/2011 09/15/2012 Overview: ICD-10 update of inactive term AAA family hx 10/15/2010 11/18/2016 Other premature beats 04/20/20092013 Palpitations 03/09/2009 09/04/2017 Vertigo 03/09/2009 11/18/2016 HTN, GOAL BELOW 130/80 01/31/200910/30 Overview: Modified per HTN protocol #16. Type 2 diabetes mellitus wit h hemoglobin A1c goal of less than 7.0% 01/05/2009 02/28/2011 Overview: Per Diabetes Taxonomy. ICD-10 update of inactive term Benign neoplasm of colon 09/30/200801/2017 CHR ISCHEMIC HRT DIS NOS 10/03/200608/2014 Special screening for malign ant neoplasms, colon 09/30/2005 09/30/2008 Overview: Colonoscopy 09/26/05--tubular adenoma, hyperplastic polyp--repeat 3-5 years BPH without obstruction/lowe r urinary tract symptoms 07/04/2005 09/14/2013 Gout 03/30/2003 06/24/2020 Esophageal reflux 11/13/2001 03/13/2018 Benign prostatic hyperplasia 11/13/2001 11/18/2016 Overview: ICD-10 update of inactive term ICD-10 update of inactive term HYPERTENSION NOS 01/31/2009 Overview: Modified per HTN protocol #16. INHIBITED SEX EXCITEMENT 10/2013 Mixed dyslipidemia Overview: Per Lipid Taxonomy. Type 2 diabetes mellitus wit h hemoglobin A1c goal of less than 7.0% 01/05/2009 Overview: Per Diabetes Taxonomy. ICD-10 update of inactive term Type 2 diabetes mellitus wit h hemoglobin A1c goal of less than 8.0% 01/13/2014 Overview: ICD-10 update of inactive term documented as of this encounter (statuses as of 11/27/2023) Immunizations Name Administration Dates Next Due COVID-19 mRNA, LNP-s, No Pre serve, 2-Dose Series (Moderna) 05/02/2020,04/04/2020 COVID-19, mRNA, LNP-s, PF, B ooster, 100mcg/0.5mg (Moderna) 02/06/2022,01/15/2021 Pneumococcal Conjugate Vacc, 13 Valent (Prevnar) 05/16/2016 Pneumococcal Polysaccharide PPV23 (Pneumovax) 01/09/2012,11/14/2005 Season Influenza, Quad, PF, Adjuvanted, 65+ Yrs, IM (FLUAD) 12/24/2019 Seasonal Influenza, PF, 6 M & above, IM , (FluLaval or Fluzone) 12/24/2017,01/01/2017 Seasonal Influenza, Quadriva lent Hd (Fluzone Hd) 12/22/2020 Seasonal Influenza, Quadriva lent, No Preserve, IM 12/18/2015,12/19/2014 Seasonal Influenza, Trivalen t, (IIV3), with Preserv, (Fluzone) 12/13/2013,11/19/2012,12/12/2011,12/20,12/28/2009,01/03/2009,01/11/2008 ,01/08/2007,01/14/2006 Seasonal Influenza, Trivalen t, Adjuvanted, 65+ YRS, [...] in the Last Year Never true 09/28/2019 Utilities Answer Date Recorded Do you have trouble paying y our heating, water, or electric bill? (Adult - for ages 18 years and over) Not on file 08/26/2023 Is your family able to pay t he heat, water, or electric bill? (Household - for ages 0-17 years) Not on file 08/26/2023 Does your family have access to good internet? (Household - for ages 0-17 years) Not on file 08/26/2023 Social Connections Answer Date Recorded How often do you feel lonely or isolated from those around you? (Adult - for ages 18 years and over) Not on file 08/26/2023 Sex and Gender Information Value Date Recorded Sex Assigned at Male 09/28/2019 10:24 AM EDT Gender Identity Male 09/28/2019 10:24 AM EDT Sexual Orientation Straight 09/28/2019 10 :24 AM EDT Job Start Date Occupation Industry Not on file Not on file Not on file documented as of this encounter Progress Notes * Merlene Smith PHARM Tech - 11/27/2023 8:50 AM EDT Patient Phone Numbers Left message on patients answering machine to schedule MTDM appointment for DM management. [facility] message sent --no Clinic will follow up again in 4 week(s). [Attempt # 2] Thank you, Merlene Smith Treasury Accountant [facility] 11/27/2023, 8:50 AM documented in this encounter Plan of Treatment Upcoming Encounters Date Type Department Care Team (Late st Contact Info) Description 12/26/2023 6:10 PM EDT Pharmacy Pharmacy, [address] [place] [address] [facility] [address] [place] [address] 03/01/2024 1:30 PM EST Office Visit Cardiology, [facility] [address] [place] [address] Alan Bejarano, [address] [place] [address] 03/16/2024 4:00 PM EST Office Visit Family Practice [facility] [address] [place] [address] oB Renteria MD [address] [place] [address] 04/12/2024 2:20 PM EST Office Visit Nephrology, [facility] [address] [facility] [place] [address] Jacky Macdonald MD [address] [place] [address] 07/08/2024 11:15 AM EDT Imaging Radiology [address] [place] [address] Health Maintenance Due Date Last Done Comments [...] Additional history exists CKD PHOS USE SMARTSET 99314 08/06/2024 05, 11/29/2022, 11/09/2021, Additional history exists Diabetic Foot Exam 09/08/2024 09/09/2023, 0 05/27/2022, 08/13/2021, Additional history exists CKD HGB USE SMARTSET 42720 09/15/202409/15, 09/16/2023, 08/21/2023, Additional history exists Diabetic [...] Documents on File Type Date Recorded Patient Technical Planner Expl anation Advance Directives and Kenan g Will 07/12/2011 ADVANCE DIRECTIVE Power of Records Management Coordinator 07/12/2011 POWER OF A TTORNEY Care Teams Feed Management Advisor Relationship Specialty Start Date End Date Bo Renteria MD [address] [place] [address] PCP - General Family Medicine 06/22/20 documented as of this encounter
--- OUTSIDE RECORDS SUMMARY | 2024-04-30 23:05 | External Medical Summary | Summary of Care ---
Author Name Unknown Organization [facility] Address [address] [place] [address] Phone [phone] Care Team Providers Care Proposal Manager Writer Name Role Phone Bo Renteria MD Primary Care Provider [phone] Reason for Visit * Reason Onset Date Comments Medication Refill 02/12/2024 Encounter Details Date Type Department Care Team (Late st Contact Info) Description 02/12/2024 Refill Nephrology, [facility] [address] [facility] [place] [address] Scarlett Fulton MD [address] [facility] [place] [address] Albuminuria; Hypertension, unspecified type Allergies Active Allergy Reactions Criticality Noted Date Comments Salicylates 02/09/2002 stomach upset documented as of this encounter (statuses as of 02/12/2024) Medications ASPIRIN EC 81 MG PO TBEC Take by mouth daily. Active Blood Glucose Monitoring Suppl ([employer] VERIO FLEX SYSTEM) w/Device KITIndications:T ype 2 diabetes mellitus with hemoglobin A1c goal of less than 8.0% ([facility]) Use as directed. 1 Kit 11/17/19 20 [...] g 03/07/20 23 Active OneTouch Delica Plus [id number] ions:Type 2 diabetes mellitus with hemoglobin A1c [...] 1/2 tablet daily, Reported on 07/28/2023 Pen [place] 32G X 4 MMIndications:Ty pe 2 diabetes [...] pressure less than 140/90,Coronary artery disease involving [place] coronary artery of [place] heart without angina pectoris Take 1 Tablet by mouth in the morning. 90 Tablet 3 07/28/19 24 Active Furosemide 40 MG Oral Tablet (Lasix) Take 1 Tablet by mouth in the morning. 90 Tablet 3 07/28/19 24 Active Atorvastatin Calcium 80 MG Oral Tablet (Lipitor)Indicat ions:Chronic ischemic heart disease,Dyslipid emia, goal LDL below 70 Take 1 Tablet by mouth in the morning. 90 Tablet 1 08/13/19 24 Active Allopurinol 100 MG Oral Tablet [...] night 90 Tablet 3 02/12/20 24 Active amLODIPine Besylate 5 MG Oral Tablet (Norvasc)Indicat ions:Albuminuria ,Hypertension, unspecified type Take 1 tab daily at night 90 Tablet 3 02/12/20 23 024 Discontin ued(Refil l) documented as of this encounter (statuses as of 02/12/2024) Active Problems Problem Noted Date Diagnosed Date Gouty arthropathy 11/29/2022 Stage 3b chronic kidney disease 05/27/2022 Coronary artery disease invo lving kobuk coronary artery of kobuk heart without angina pectoris 03/19/2019 BPH with [...] as of this encounter (statuses as of 02/12/2024) Resolved Problems Problem Noted Date Diagnosed Date [...] as of this encounter (statuses as of 02/12/2024) Immunizations Name Administration Dates Next Due COVID-19 [...] encounter Miscellaneous Notes * Telephone Encounter - Artemio Macdonald MD - 02/12/2024 12:15 PM ESTSigned Prescriptions: Disp Refills amLODIPine Besylate 5 MG Oral Tablet (Norv*90 Tab*3 Sig: Take 1 tab daily at night Authorizing Provider: ARTEMIO MACDONALD * Telephone Encounter - Aleja Cisneros LPN - 02/12/2024 12:12 PM ESTPending Prescriptions: Disp Refills amLODIPine Besylate 5 MG Oral Tablet (Norv*90 Tab*3 Sig: Take 1 tab daily at night * Telephone Encounter - Aleja Cisneros LPN - 02/12/2024 12:05 PM EST Rx pended Message sent to provider for approval Last OV 07/28/23 Next OV 04/12/24 documented in this encounter Plan of Treatment Upcoming Encounters Date Type Department Care Team (Late st Contact Info) Description 03/01/2024 1:30 PM EST Office Visit Cardiology, [facility] [address] [place] [address] Alan Bejarano DO [address] [place] [address] 03/16/2024 4:00 PM EST Office Visit Family Practice [facility] [address] [place] [address] Bo Renteria MD [address] [place] [address] 04/12/2024 2:20 PM EST Office Visit Nephrology, [facility] [address] [place] [address] Artemio Macdonald MD [address] [place] [address] 07/08/2024 11:15 AM EDT Imaging Radiology [address] [place] [address] 12/08/2024 1:40 PM EDT Office Visit Dermatology [address] [place] [address] Miranda Zamora PA-C [address] [place] [address] [place] [address] Health Maintenance Due Date Last Done Comments [...] Additional history exists CKD PHOS USE SMARTSET 83227 08/06/202407/10, 11/29/2022, 11/09/2021, Additional history exists Diabetic Foot Exam 09/08/2024 09/09/2023, 0 05/27/2022, 08/13/2021, Additional history exists CKD HGB USE SMARTSET 79624 09/15/202409/15, 09/16/2023, 08/21/2023, Additional history exists Diabetic [...] as of this encounter Visit Diagnoses Diagnosis Albuminuria Proteinuria Hypertension, unspecified type documented in this encounter Advance Directives Documents on File Type Date Recorded Patient Mutual Fund Accountant Expl anation Advance Directives and Kenan henriquez Will 07/12/2011 ADVANCE DIRECTIVE Power of Solar Energy Specialist 07/12/2011 POWER OF A TTORNEY Care Teams Proposal Manager Writer Relationship Specialty Start Date End Date Bo Renteria MD [address] [place] [address] PCP - General Family Medicine 06/22/20 documented as of this encounter
--- OUTSIDE RECORDS SUMMARY | 2024-04-30 23:05 | External Medical Summary | Summary of Care ---
Author Name Unknown Organization [facility] Address [address] [facility] [place] [address] Phone [phone] Care Team Providers Care Exhaust Tender Name Role Phone Teo Renteria MD Primary Care Provider [phone] Reason for Visit * Reason Onset Date Comments Medication Refill 11/21/2023 Encounter Details Date Type Department Care Team (Late st Contact Info) Description 11/21/2023 Refill Family [facility] [address] [place] [address] Teo Renteria MD [address] [place] [address] Type 2 diabetes mellitus with hemoglobin A1c goal of less than 8.0% ([facility]) Allergies Active Allergy Reactions Criticality Noted Date Comments Salicylates 02/09/2002 stomach upset documented as of this encounter (statuses as of 11/22/2023) Medications Medication Sig Dispensed Refills Start Date End Date Status ASPIRIN EC 81 MG PO TBEC Take by mouth daily. Active Blood Glucose Monitoring Suppl ([employer] VERIO FLEX SYSTEM) w/Device KITIndications:Typ e 2 diabetes mellitus with hemoglobin A1c goal of less than 8.0% ([facility]) Use as directed. 1 Kit 11/17/2019 Active Nitroglycerin 0.4 MG Sublingual Tablet Sublingual (Nitrostat) Place under the tongue 1 Tablet every 5 minutes as needed for Pain, Chest. up to 3 doses in 15 minutes 25 Tablet 3 05/03/2021 Active amLODIPine Besylate 5 MG Oral Tablet (Norvasc)Indicatio ns:Albuminuria,Hyp ertension, unspecified type Take 1 tab daily at night 90 Tablet 3 02/11/2023 Active Diclofenac Sodium 1 % External Gel (Voltaren) Apply 2 g topically to affected area in the morning and 2 g before bedtime. Apply to right ankle. 2 g 03/07/2023 Active OneTouch Delica Plus [id number] ns:Type 2 diabetes mellitus with hemoglobin A1c goal of less than 8.0% (HCC) test blood sugar once daily dx e11.9 100 Each 3 04/09/2023 Active OneTouch Verio In Vitro Strip (Glucose Blood)Indications: Type 2 diabetes mellitus with hemoglobin A1c goal of less than 8.0% (HCC) test blood sugar once daily dx e11.9 100 Strip 3 04/09/2023 Active Insulin Glargine Solostar 100 UNIT/ML Subcutaneous Solution Pen-injector (Lantus SoloStar) Inject 35 Units under the skin every evening. E11.9 30 mL 5 05/13/2023 Active Metoprolol Succinate ER 100 MG Oral Tablet Extended Release 24 Hour (toPROL XL)Indications:Pal pitations take one and 1/2 tablet daily 135 Tablet 2 06/13/2023 Active Additional Information Patient taking differently: Daily(AM), take one and 1/2 tablet daily, Reported on 07/28/2023 Pen [place] 32G X 4 MMIndications:Type 2 diabetes mellitus with hemoglobin A1c goal of less than 8.0% (HCC) Use as directed. Use to inject insulin four times daily E11.9 400 Each 3 06/17/2023 Active Empagliflozin 10 MG Oral Tablet (Jardiance)Indicat ions:Type 2 diabetes mellitus with hemoglobin A1c goal of less than 8.0% (HCC) Take 1 Tablet by mouth in the morning. 90 Tablet 3 07/21/2023 Active Lisinopril 40 MG Oral TabletIndications: Essential hypertension with goal blood pressure less than 140/90,Coronary artery disease involving tribe coronary artery of tribe heart without angina pectoris Take 1 Tablet by mouth in the morning. 90 Tablet 3 07/28/2023 Active Furosemide 40 MG Oral Tablet (Lasix) Take 1 Tablet by mouth in the morning. 90 Tablet 3 07/28/2023 Active Atorvastatin Calcium 80 MG Oral Tablet (Lipitor)Indicatio ns:Chronic ischemic heart disease,Dyslipidem ia, goal LDL below 70 Take 1 Tablet by mouth in the morning. 90 Tablet 1 08/13/2023 Active Allopurinol 100 MG Oral Tablet (Zyloprim) Take 1 Tablet by mouth in the morning. 90 Tablet 1 09/08/2023 Active metFORMIN HCl 500 MG Oral Tablet (Glucophage)Indica tions:Type 2 diabetes mellitus with hemoglobin A1c goal of less than 8.0% (HCC) Take 1 Tablet by mouth 2 times a day with morning and evening meals. 180 Tablet 3 11/22/2023 Active metFORMIN HCl 500 MG Oral Tablet (Glucophage)Indica tions:Type 2 diabetes mellitus with hemoglobin A1c goal of less than 8.0% (HCC) Take 1 Tablet by mouth 2 times a day with morning and evening meals. 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 Type 2 diabetes mellitus wit h hemoglobin A1c goal of less than 8.0% 09/15/2012 Overview: ICD-10 update of inactive term S/P carotid endarterectomy 03/09/2009 Dyslipidemia 02/23/2009 Overview: Per Lipid Taxonomy. HTN, goal below 130/80 documented as of this encounter (statuses as of 11/22/2023) Resolved Problems Problem Noted Date Diagnosed Date [...] as of this encounter (statuses as of 11/22/2023) Immunizations Name Administration Dates Next Due COVID-19 [...] encounter Miscellaneous Notes * Telephone Encounter - Rodrigo Thakur, [facility] - 11/22/2023 7:33 PM EDT Signed Prescriptions: Disp Refills metFORMIN HCl 500 MG Oral Tablet (Glucopha*180 Ta*3 Sig: Take 1 Tablet by mouth 2 times a day with morning and evening meals.Authorizing Provider: TEO RENTERIA User: RODRIGO THAKUR documented in this encounter Plan of Treatment Upcoming Encounters Date Type Department Care Team (Late st Contact Info) Description 11/27/2023 6:10 PM EDT Pharmacy Pharmacy, [facility] [address] [place] [address] [facility] [address] [place] [address] 03/01/2024 1:30 PM EST Office Visit Cardiology, [facility] [address] [place] [address] Alan Bejarano DO [address] [place] [address] 03/16/2024 4:00 PM EST Office Visit Family Practice [facility] [address] [place] [address] Teo Renteria MD [address] [place] [address] 04/12/2024 2:20 PM EST Office Visit Nephrology, [facility] [address] [place] [address] Jacky Macdonald MD [address] [place] [address] 07/08/2024 11:15 AM EDT Imaging Radiology [address] [place] [address] Health Maintenance Due Date Last Done Comments [...] Additional history exists CKD PHOS USE SMARTSET 64253 08/06/202407/10, 11/29/2022, 11/09/2021, Additional history exists Diabetic Foot Exam 09/08/2024 09/09/2023, 0 05/27/2022, 08/13/2021, Additional history exists CKD HGB USE SMARTSET 79680 09/15/202409/15, 09/16/2023, 08/21/2023, Additional history exists Diabetic [...] Documents on File Type Date Recorded Patient Vp Foundation Expl kristinaion Advance Directives and Kenan henriquez Will 07/12/2011 ADVANCE DIRECTIVE Power of Guard Driver 07/12/2011 POWER OF A TTORNEY Care Teams Exhaust Tender Relationship Specialty Start Date End Date Teo Renteria MD [address] [place] [address] PCP - General Family Medicine 06/22/20 documented as of this encounter
--- OUTSIDE RECORDS SUMMARY | 2024-04-30 23:05 | External Medical Summary | Summary of Care ---
Author Name Unknown Organization [facility] Address [address] [place] [facility] [place] [place] [address] Phone [phone] Care Team Providers Care Bed Teacher Name Role Phone Bo Renteria MD Primary Care Provider [phone] Reason for Visit * Reason Comments Appointment Encounter Details Date Type Department Care Team (Late st Contact Info) Description 12/26/2023 6:10 PM EDT Pharmacy Pharmacy, [facility] [address] [facility] [place] [place] [address] [facility] [address] [place] [address] Type 2 diabetes mellitus with hemoglobin A1c goal of less than 8.0% ([facility])* Allergies Active Allergy Reactions Criticality Noted Date Comments Salicylates 02/09/2002 stomach upset documented as of this encounter (statuses as of 12/26/2023) Medications Medication Sig Dispensed Refills Start Date End Date Status ASPIRIN EC 81 MG PO TBEC Take by mouth daily. Active Blood Glucose Monitoring Suppl ([email or web address] VERIO FLEX SYSTEM) w/Device KITIndications:Type 2 diabetes mellitus with hemoglobin A1c goal of less than 8.0% ([facility]) Use as directed. 1 Kit 11/17/2019 Active [...] 2 g 03/07/2023 Active OneTouch Delica Plus [id number] s:Type 2 diabetes mellitus with hemoglobin A1c [...] 1/2 tablet daily, Reported on 07/28/2023 Pen [place] 32G X 4 MMIndications:Type 2 diabetes mellitus [...] pressure less than 140/90,Coronary artery disease involving [place] coronary artery of [place] heart without angina pectoris Take 1 Tablet [...] as of this encounter (statuses as of 12/26/2023) Active Problems Problem Noted Date Diagnosed Date Gouty arthropathy 11/29/2022 Stage 3b chronic kidney disease 05/27/2022 Coronary artery disease invo lving kaguy[place] coronary artery of [place] heart without angina pectoris 03/19/2019 BPH with obstruction/lower urinary tract symptom s 11/21/2013 Overview: Currently, doing very well on Avodart alone. Type 2 diabetes mellitus wit h hemoglobin A1c goal of less than 8.0% 09/15/2012 Overview: ICD-10 update of inactive term S/P carotid endarterectomy 03/09/2009 Dyslipidemia 02/23/2009 Overview: Per Lipid Taxonomy. HTN, goal below 130/80 documented as of this encounter (statuses as of 12/26/2023) Resolved Problems Problem Noted Date Diagnosed Date [...] as of this encounter (statuses as of 12/26/2023) Immunizations Name Administration Dates Next Due COVID-19 [...] as of this encounter Progress Notes * Yanelis Manuel PHARM Tech - 12/26/2023 8:13 AM EDT Patient Phone Numbers Left message on patients answering machine to schedule [facility] appointment for diabetes management. [facility] message sent --no Clinic will follow up again in 4 week(s). [Attempt # 3] Thank you, Yanelis Manuel [facility] [employer] [facility] 12/26/2023,8:13 AM documented in this encounter Plan of Treatment Upcoming Encounters Date Type Department Care Team (Late st Contact Info) Description 01/23/2024 6:10 PM [facility] Pharmacy Pharmacy, [address] [place] [address] [facility] [address] [place] [address] 03/01/2024 1:30 PM EST Office Visit Cardiology, [facility] [address] [place] [address] Alan Bejarano, [address] [place] [address] 03/16/2024 4:00 PM EST Office Visit Family Practice [facility] [address] [place] [address] Bo Retneria MD [address] [place] [address] 04/12/2024 2:20 PM EST Office Visit Nephrology, [facility] [address] [place] [address] Jacky Macdonald MD [address] [place] [address] 07/08/2024 11:15 AM EDT Imaging Radiology [address] [place] [address] 12/08/2024 1:40 PM EDT Office Visit Dermatology [address] [place] [address] Miranda Zamora PA-C [address] [place] [address] [place] [address] Health Maintenance Due Date Last Done Comments [...] Additional history exists CKD PHOS USE SMARTSET 73452 08/06/202407/10, 11/29/2022, 11/09/2021, Additional history exists Diabetic Foot Exam 09/08/2024 09/09/2023, 0 05/27/2022, 08/13/2021, Additional history exists CKD HGB USE SMARTSET 81136 09/15/202409/15, 09/16/2023, 08/21/2023, Additional history exists Diabetic [...] Documents on File Type Date Recorded Patient Lease Purchase Truck Driver Expl anation Advance Directives and Livin g Will 07/12/2011 ADVANCE DIRECTIVE Power of Canvas Marker 07/12/2011 POWER OF A TTORNEY Care Teams Bed Teacher Relationship Specialty Start Date End Date Bo Renteria MD [address] [place] [id number] PCP - General Family Medicine 06/22/20 documented as of this encounter
[2024-04-30] MEDS: cefTRIAXone SODIUM 2,000 MG/50 ML BAG IV SCH (23:49)
--- NOTE | 2024-05-01 02:14 | Urology Consultation ---
Date of Consultation May 01, 2024 Assessment & Plan (1) Bladder outlet obstruction: The patient is being admitted on the hospital service. From a urologic perspective we recommend the following: Patient was admitted with generalized weakness we will defer management and further evaluation of this problem to the primary service From a urologic perspective we recommend the following: Patient has a Miles catheter placed initially left in place for several days at which time a voiding trial can be attempted In the interim the patient has been started on Flomax which should continue He is placed on empiric antibiotics and he should continue and can be tailored based on culture results that have been sent Additional recommendations with forthcoming based on his clinical course as it unfolds (2) Acute kidney injury superimposed on CKD: (3) CKD (chronic kidney disease): (4) Falls: (5) Weakness: (6) Transient ischemic attack (TIA): (7) Diabetes mellitus, type 2: (8) Chronic kidney disease: Plan Attending note: Patient independently assessed, examined, interviewed, and evaluated. Patient evaluated by physician licensed nursing assistant early this a.m. Evaluated independently by myself today. Patient with significant outlet obstruction acute urinary retention and incomplete emptying. Had been having increasing weakness falls and confusion. Patient is resting comfortably is tolerating catheter. No significant hematuria. Patient has catheter in place draining clear yellow urine. Had approximately a liter of urine drained immediately after catheter placement. Patient has previously had some lower urinary tract symptoms. Denies major episode of obstruction has not seen urology in the past. Agree with note as above. Patient's vitals and labs were all reviewed. Pertinent values in the HPI and plan section. Imaging was reviewed interpreted by myself. Patient had signs of significant obstruction. Has catheter in place now draining off the significant distention of the bladder. Agree with read. Vitals were reviewed. Blood pressure 159/75 pulse 89 respirations 24 temperature 36.8 oxygen saturation 95% on room air. Patient's vitals and blood work were also all reviewed. Hemoglobin was 10.7. White count 7.24. Creatinine 1.53. This has improved since admission With catheter placement. Had been at 2.02. Discussed findings extensively with patient. Reviewed with physician licensed nursing assistant as well as consulting physicians/team. At this point patient is tolerating catheter well. Appears to be draining well without major issue. Patient is still dealing with some significant weakness and is undergoing further evaluation workup. Does have complex medical history with previous history of weakness falls and TIA symptoms. Possibly dealing with infectious issue with acute urinary retention and incomple te emptying. May be contributing significantly to weakness and overall ill feelings. Patient's complicated medical and surgical history was reviewed and summarized above. Patient's surgical, medical, social, and family history were all reviewed with pertinent values as above. Discussed extensively multifactorial factors contributing to acute urinary retention. Discussed possible significant prostate enlargement. Discussed other concerns and issues. Discussed possible deconditioning and other issues contributing discussed patient's overall illness and weakness and possible contribution from infection or other issues such as inflammation. Patient had been started on tamsulosin. Agree with this plan. Is on antibiotic coverage. Is undergoing hydration and monitoring with the acute kidney injury on chronic kidney disease. Discussed patient's current diagnosis as well as concerns and issues. Reviewed different options moving forward. Discussed potential risks and benefits as well as possible options and concerns. Reviewed potential surgical options and interventions. Discussed potential issues and concerns related to intervention. Risk and benefits were discussed extensively with patient. Discussed potential risks related to anesthesia. Discussed risks of bleeding infection and injury. The patient will likely need further evaluation and workup will likely need cystoscopy and evaluation may need repeat imaging to reassess kidneys and bladder after acute episode. Will need to monitor while hospitalized for recovery and improvement of weakness would recommend likely course of antibiotics after admission. Will likely need follow-up in office in the next 1 to 2 weeks for further evaluation. Would likely benefit from cystoscopy in the office and possible catheter removal at that time. Can try to coordinate with office to set this up. Patient's complicated medical and surgical history was reviewed and surmise above all imaging was reviewed interpreted by myself and the labs were reviewed please see above for pertinent positive negatives largely in the HPI or plan section. Will plan for outpatient follow-up and workup and evaluation for acute urinary r etention and weakness. History of Present Illness Reason for Consultation: Bladder outlet obstruction Attending Physician: Cierra Madrigal MD History of Present Illness This is an 79-year-old male who presented to the emergency department secondary to generalized weakness for approximately 1 week. Patient suffered at least 1 fall earlier in the week but denies any injuries or pain. Patient continued to have multiple falls prompting his visit to the emergency department. Urology was asked to see the patient due to bladder outlet obstruction. Patient notes that for several weeks he has had decreased urine stream and feels as though he cannot empty his bladder completely after urinating. He denies any fevers, shakes, or chills. He denies any back or flank pain. He also denies any dysuria or hematuria. Since arrival to the hospital the patient has had labs and imaging which independent reviewed. A CT scan of the head showed no acute intracranial process. Chest x-ray showed no evidence of pneumonia. CBC revealed white blood cell count and platelet count were normal. Hemoglobin and hematocrit noted 11.9 and 36.1. Coagulation studies were normal. Chemistry profile showed sodium 135 with a normal potassium. BUN and creatinine were 51 and 2.0. (There were no previous labs to obtain a baseline creatinine, but per medicine notes his baseline creatinine is 1.6). The urinalysis was not indicative of infection. At the time of my interview the patient was resting comfortably in bed he was no distress. Allergies Allergy/AdvReac Type Severity Reaction Status Date / Time aspirin AdvReac Mild STOMACH Verified 11/15/21 08:03 UPSET Home Medications Medication Instructions Recorded Confirmed Type allopurinol 100 mg tablet 100 mg PO QAM 11/13/18 04/30/24 History aspirin 81 mg tablet,delayed 81 mg PO QAM 11/13/18 11/15/21 History release atorvastatin 80 mg tablet 80 mg PO HS 11/13/18 04/30/24 History lisinopril 40 mg tablet 40 mg PO QAM 11/13/18 04/30/24 History metoprolol succinate 100 mg 150 mg PO QAM 11/13/18 04/30/24 History tablet,extended release 24 hr amlodipine 5 mg tablet 5 mg PO QPM 04/30/24 04/30/24 History furosemide 40 mg tablet 40 mg PO QAM 04/30/24 04/30/24 History insulin glargine 100 unit/mL (3 35 unit subcut QPM 04/30/24 04/30/24 History mL) subcutaneous pen (Basaglar KwikPen U-100 Insulin) metformin 500 mg tablet 500 mg PO BID 04/30/24 04/30/24 History Patient History Medical History Chronic kidney disease stage 3 -- monitoring, [facility] (Dr Penaloza) Gout History of gastroesophageal reflux (GERD) Diabetes mellitus, type 2 niddm 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 JOSEPH Family History Mother Family history of diabetes mellitus Other No family history of adverse response to anesthesia Social History Smoking Status: Former smoker Cigarettes Per Day: 1997; Second Hand Exposure: No; Do You Dip or Chew Tobacco: No; Hx Alcohol Use: No Hx Substance Use: No Preferred Language: Vincentian Communication Ability: Effective Electric Meter Installer Helper Required: No Beliefs That Will Affect Care: None Current Living Situation: Spouse Feels Safe at Home: Yes Safety Concerns: Feels Safe At This Time Assistive Devices: Denture - Upper Review of Systems 2 Review of Systems: All systems reviewed & are unremarkable except as noted in HPI & below Physical Exam Constitutional: WD/WN, vitals as above Eyes: no conjunctival abnormality ENMT: Ears: no hearing impairment and no external ear abnormality Mouth: no oropharynx abnormality Neck: trachea midline Respiratory: normal respiratory effort; no respiratory distress and no labored breathing Cardiovascular: Rate/Rhythm: regular rate and regular rhythm Gastrointestinal (Abdomen): Soft and nontender Musculoskeletal: No calf tenderness Skin: no rashes Neurologic: moves all extremities Genitourinary: No CVA tenderness with percussion bilaterally. Patient had a Miles catheter in place draining clear yellow urine Results & Data Vital Signs (Past 12 Hours) Vital Signs Temp Pulse Pulse Resp BP BP Pulse Ox 05/01/24 02:00 79 18 159/73 H 96 04/30/24 23:00 80 14 166/94 H 95 04/30/24 22:36 22 04/30/24 22:00 173/85 H 04/30/24 22:00 173/85 H 04/30/24 22:00 88 24 96 04/30/24 21:54 161/80 H 04/30/24 21:54 161/80 H 04/30/24 21:54 161/80 H 04/30/24 21:48 80 24 94 04/30/24 21:36 88 22 94 04/30/24 21:12 94 H 20 95 04/30/24 21:12 171/77 H 04/30/24 21:12 171/77 H 04/30/24 21:00 103 H 18 04/30/24 20:41 93 04/30/24 20:36 89 18 98 04/30/24 20:12 86 19 97 04/30/24 20:00 182/84 H 04/30/24 20:00 182/84 H 04/30/24 19:45 94 H 23 95 04/30/24 19:21 96 H 04/30/24 19:20 190/97 H 04/30/24 16:15 36.2 C L 111 H 18 154/71 H 95 O2 Del Method 05/01/24 02:00 Room Air 04/30/24 23:00 Room Air 04/30/24 22:36 Room Air 04/30/24 22:00 04/30/24 22:00 04/30/24 22:00 04/30/24 21:54 04/30/24 21:54 04/30/24 21:54 04/30/24 21:48 04/30/24 21:36 04/30/24 21:12 04/30/24 21:12 04/30/24 21:12 04/30/24 21:00 04/30/24 20:41 Room Air 04/30/24 20:36 04/30/24 20:12 04/30/24 20:00 04/30/24 20:00 04/30/24 19:45 04/30/24 19:21 04/30/24 19:20 04/30/24 16:15 Room Air PG Care Time/CCT Total # of Minutes Spent Total Time Spent with Patient: Total time spent is greater than 50% in coordination of care (as documented) at patient's floor/unit and/or counseling patient: Coding Level of Care Code 39433 INT INP/OBS CARE 3/75MIN Diagnoses Bladder outlet obstruction N32.0 Acute kidney injury superimposed on CKD N17.9; N18.9 CKD (chronic kidney disease) N18.9 Falls R29.6 Weakness R53.1 Transient ischemic attack (TIA) G45.9 Diabetes mellitus, type 2 E11.9
[2024-05-01] MEDS: Patient's HEIGHT &/or WEIGHT Needed STA (02:59)
[2024-05-01] MEDS: INSULIN ASPART PER UNIT CHARGE SC SCH (04:17)
[2024-05-01 06:10] LABS: Basophils # (auto) 0.01 K/uL (0.00-0.20); Basophils % (auto) 0.1 %; Eosinophils # (auto) 0.17 K/uL (0.00-0.50); Eosinophils % (auto) 2.3 %; Hematocrit (blood only) 32.1 % (42.0-52.0); Hemoglobin 10.7 g/dl (14.0-18.0); Immature Granulocytes # (auto) 0.04 K/uL (0.01-0.20); Immature Granulocytes % (auto) 0.6 %; Lymphocytes # (auto) 0.92 K/uL (1.20-3.40); Lymphocytes % (auto) 12.7 %; Mean Corpuscular Hemoglobin 29.2 pg (25.0-34.0); Mean Corpuscular Hgb Conc 33.3 g/dL (32.0-36.0); Mean Corpuscular Volume 87.5 fL (80.0-100.0); Mean Platelet Volume 9.8 fL (9.4-12.4); Monocytes # (auto) 0.89 K/uL (0.11-0.59); Monocytes % (auto) 12.3 %; Neutrophils # (auto) 5.21 K/uL (1.40-6.50); Platelet Count 135 K/uL (130-400); RDW Coefficient of Variation 14.5 % (11.5-14.5); RDW Standard Deviation 46.8 fL (36.4-46.3); Red Blood Count 3.67 M/uL (4.70-6.10); White Blood Count 7.24 K/ul (4.8-10.8)
[2024-05-01 06:13] LABS: BUN Creatinine Ratio 27.5 (10-20); Calcium 8.5 mg/dl (8.6-10.3); Magnesium 1.9 mg/dl (1.7-2.4); Potassium 3.1 mmol/L (3.5-5.1)
--- NOTE | 2024-05-01 08:33 | Hospitalist Progress Note ---
Date of Service May 01, 2024 Assessment & Plan (1) Acute kidney injury superimposed on CKD: (2) Hyperglycemia due to type 2 diabetes mellitus: (3) Weakness: (4) Hypokalemia: (5) Mild cognitive impairment: Plan Patient is a 79-year-old male with Past medical history of hypertension, type 2 diabetes mellitus since 2003, CAD with chronic total occlusion of LAD, carotid artery stenosis status post CEA 1997, dyslipidemia, BPH, gout who comes to the hospital with generalized weakness and multiple falls. Generalized weakness MOON on CKD Bladder outlet obstruction, history of BPH Possible complicated UTI generalized weakness and falls Creatinine of baseline of 1.6 04/12/24; presents with creatinine of 2.04--> 1.53 CT headno acute finding Chest x-rayno acute findings Bladder scan > 900 cc; boyce placed with blood-tinged urine Urine culture obtained IV Rocephin started; continue and adjust based on cultures Continue IV fluids gentle for now Hold nephrotoxic meds including Lasix and Lisinopril for now Renal US ordered to r/o obstruction PT/OT eval Urology consult placed; appreciate reccs Hypokalemia: Serum K+ 3.1; replaced with KCL 40meq no ectopy on monitor trend BMP in AM Uncontrolled type 2 diabetes mellitus HbA1c of 11.5 in April 2024 Hold home metformin; started on insulin and NovoLog paraeducator consulted; to be seen if patient is is admitted till Friday. mild cognitive impairment: Head CT with Cerebral atrophy. No acute changes. no elopement concerns per family Does not require family to anticipate or meet his ADL needs at this time FAST scale 4 indicating possibly mild dementia PT/OT consults Goutcontinue allopurinol History of CAD with chronic total occlusion of LADcontinue on aspirin, Lipitor Hypertensioncontinue amlodipine and metoprolol; hold lisinopril and Lasix DVT prophylaxis heparin Code Status: Full code I spent a total of 56 minutes coordinating, documenting, and providing care for this patient excluding time spent inthe performance of separately billed services or time spent by another provider/QHP. Admission and Anticipated Discharge Date Admission Date: April 30, 2024 Supervising Physician Co-Signing Physician Notes Pt was seen and examined by myself, Cierra Madrigal MD on the day of service. Care was coordinated with VALERIY Pandey. 79yoM admitted with likely bladder outlet obstruction requiring boyce placement, MOON and hematuria. On exam AAOx2 Abdomen nontender UA without signs of infection- no leukocytosis, no signs of sepsis Will get renal US Urology consulted, appreciate recs Monitor MOON, consider nephrology consult if worsening or persistent s/p boyce placement. Otherwise as above. I spent a total [id number] coordinating, documenting, and providing care for this patient excluding time spent in the performance of separately billed services Subjective Pt laying in his hospital bed in no apparent distress. His is at bedside and assists with answering questions. He has been feeling weak and having increased falls at home. Per , his memory has been more impaired over the past few months. Unable to state accurately what year we are in. 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 Pt denies PAREKH, dizziness, chest pain, palpitations, N/V/D. He states that his urine stream starts as dribbles and then starts and sometimes dribbles at the end of his urination. See plan of care listed below. Review of Systems Review of Systems: Neuro: (-) Falls, trauma, slurred speech HEENT: (-) PAREKH, dizziness, dysphagia, visual or auditory changes CV: (-) CP, palpitations, swelling Resp: (-) SOB GI: (-) appetite changes, N/V/D, bowel changes : (-) urinary changes Skin: (-) rashes Psych: (-) anxiety, depression Physical Exam Physical Exam: Neuro: AAOx2, PERRLA, no aphagia, memory changes, CNII-XII grossly intact HEENT: head normocephalic, moist mucus membranes CV: S1/S2, (-) M/G/R, (-) edema, cap refill < 3 seconds Resp: Lungs CTA in all rowley. On RA GI: Abdomen S/NT/ND, Ax4 bowel sounds, (-) CVA tenderness Musculoskeletal: 5/5 B/L UE strength, 5/5 B/L LE strength. No gait disturbance Skin: (-) rashes , (-) erythema. Psych: euthymic mood Results & Data Results & Data Vital Signs (Past 12 Hours) Vital Signs Temp Pulse Pulse Resp BP BP Pulse Ox 05/01/24 07:56 89 05/01/24 03:00 88 24 159/75 H 95 05/01/24 02:57 36.8 C 91 H 20 159/75 H 96 05/01/24 02:00 79 18 159/73 H 96 04/30/24 23:00 80 14 166/94 H 95 04/30/24 22:36 22 04/30/24 22:00 173/85 H 04/30/24 22:00 173/85 H 04/30/24 22:00 88 24 96 04/30/24 21:54 161/80 H 04/30/24 21:54 161/80 H 04/30/24 21:54 161/80 H 04/30/24 21:48 80 24 94 04/30/24 21:36 88 22 94 04/30/24 21:12 94 H 20 95 04/30/24 21:12 171/77 H 04/30/24 21:12 171/77 H 04/30/24 21:00 103 H 18 04/30/24 20:41 93 04/30/24 20:36 89 18 98 O2 Del Method 05/01/24 07:56 05/01/24 03:00 05/01/24 02:57 Room Air 05/01/24 02:00 Room Air 04/30/24 23:00 Room Air 04/30/24 22:36 Room Air 04/30/24 22:00 04/30/24 22:00 04/30/24 22:00 04/30/24 21:54 04/30/24 21:54 04/30/24 21:54 04/30/24 21:48 04/30/24 21:36 04/30/24 21:12 04/30/24 21:12 04/30/24 21:12 04/30/24 21:00 04/30/24 20:41 Room Air 04/30/24 20:36 Laboratory Results Short CBC 04/30/24 05/01/24 Range/Units 17:30 05:38 WBC 9.63 7.24 (4.8-10.8) K/ul Hgb 11.9 L 10.7 L (14.0-18.0) g/dl Hct 36.1 L 32.1 L (42.0-52.0) % Plt Count 174 135 (130-400) K/uL BMP 04/30/24 05/01/24 17:30 05:38 Sodium 135 L 140 Potassium 3.8 3.1 L Chloride 96 L 104 Carbon Dioxide 29 29 BUN 51 H 42 H Creatinine 2.04 H 1.53 H D Glucose 394 H* 105 H Calcium 9.1 8.5 L Cardiac Enzymes 04/30/24 Range/Units 17:30 Total Creatine Kinase 94 (30-223) U/L Liver Function 04/30/24 Range/Units 17:30 Total Bilirubin 0.6 (0.2-1.0) mg/dl AST 18 (13-39) U/L ALT 15 (7-52) U/L Alkaline Phosphatase 101 (34-104) U/L Albumin 3.8 (3.4-5.0) gm/dl Urine 04/30/24 Range/Units 20:50 Urine Color Yellow Urine Appearance Clear (Clear) Urine pH 5.5 (4.5-7.5) Ur Specific [place] 1.017 (1.000-1.030) Urine Protein 3+ H (Negative) Urine Glucose (UA) 3+ H (Negative)
[2024-05-01] MEDS: POTASSIUM CHLORIDE CRTAB 20 MEQ TABCR PO STA (08:51)
[2024-05-01] MEDS: TAMSULOSIN HCL 0.4 MG CAP PO SCH (08:51)
[2024-05-01] MEDS: METOPROLOL SUCC 50MG EXT REL TAB PO SCH (08:51)
[2024-05-01] MEDS: ASPIRIN 81 MG ECTAB PO SCH (08:51)
[2024-05-01] MEDS: allopurinoL 100 MG TAB PO SCH (08:51)
[2024-05-01] MEDS: HEPARIN SOD 5,000 UNIT/0.5 ML VIAL SQ SCH (09:53)
--- NOTE | 2024-05-01 10:02 | Electrocardiogram Report ---
Test Reason : Blood Pressure : */* mmHG Vent. Rate : 106 BPM Atrial Rate : 106 BPM P-R Int : 142 ms QRS Dur : 74 ms QT Int : 332 ms P-R-T Axes : 40 -10 39 degrees QTcB Int : 441 ms Sinus tachycardia Minimal voltage criteria for LVH, may be normal variant ( R in aVL ) Inferior infarct , age undetermined Abnormal ECG When compared with ECG of 01-Jan-2008 12:13, MANUAL COMPARISON REQUIRED PREVIOUS ECG IS INCOMPATIBLE Confirmed by Jonatan Barillas ([id number]) on 05/01/2024 10:01:21 AM Referred By: Confirmed By: Jonatan Barillas
[2024-05-01 14:17] LABS: Adenovirus F 40/41 PCR Not Detected (NotDetected); Astrovirus PCR Not Detected (NotDetected); Campylobacter PCR Not Detected (NotDetected); Cryptosporidium PCR Not Detected (NotDetected); Cyclospora cayetanensis PCR Not Detected (NotDetected); Entamoeba histolytica PCR Not Detected (NotDetected); Enteroaggregative E.coli(EAEC) Not Detected (NotDetected); Enteropathogenic E.coli (EPEC) Not Detected (NotDetected); Enterotoxigenic E.coli (ETEC) Not Detected (NotDetected); Giardia lamblia PCR Not Detected (NotDetected); Norovirus GI/GII PCR Not Detected (NotDetected); Plesiomonas shigelloides PCR Not Detected (NotDetected); Rotavirus A PCR Not Detected (NotDetected); Salmonella PCR Not Detected (NotDetected); Sapovirus PCR Not Detected (NotDetected); Shiga-like Toxin E.coli (STEC) Not Detected (NotDetected); Shigella/Enteroinvasive E.coli Not Detected (NotDetected); Vibrio cholerae PCR Not Detected (NotDetected); Vibrio species PCR Not Detected (NotDetected); Yersinia enterocolitica PCR Not Detected (NotDetected)
--- NOTE | 2024-05-01 14:56 | Pharmacy Report ---
Pharmacy Glycemic Short Note 2 - Date of Service May 01, 2024 - Glycemic Short BSG Results (Last 24 hours): 04/30/24 04/30/24 05/01/24 17:30 21:19 00:53 Glucose 394 H* POC Glucose 323 H* 121 H 05/01/24 05/01/24 05/01/24 04:15 05:38 08:55 Glucose 105 H POC Glucose 112 H 108 H 05/01/24 11:43 Glucose POC Glucose 250 H OUTPATIENT ANTIDIABETIC REGIMEN: * A1c = 11.5% (Apr 2024) * Lantus 35 units SQ qPM * Metformin 500 mg PO BID ASSESSMENT: * Varinder is a 79 yo T2DM who presented to the hospital with generalized weakness and multiple falls. * Severe hyperglycemia on admission, BSG 394 mg/dL. This quickly corrected after 6 units of Novolog. * Home dose of basal insulin was reduced by about 20% on admission. Fasting BSG of 108 mg/dL. Will slightly reduce further. * Correction factor and carb ratio were loosened this AM due to rapid correction of BSG from 324 to 121 mg/dL. However, lunch BSG then spiked to 250 mg/dL. If post prandial BSGs remain > 200 mg/dL, correction factor and carb ratio will be tightened. PLAN FOR INPATIENT GLYCEMIC CONTROL: * Hold outpatient oral diabetes medications * Basal insulin * Lantus 25 units SQ HS * Bolus insulin * NovoLog per scale ACHS or Q6hrs while NPO * Goal Range: Low 120 mg/dL - High 150 mg/dL * Correction Factor: 35 mg/dL/unit * Nutritional / Prandial insulin per carb ratio of 1 unit per 11 grams CHO consumed
[2024-05-01] MEDS: LANTUS PER UNIT CHARGE SQ SCH (21:03)
[2024-05-02] MEDS ORDERED: HALOPERIDOL LACTATE 5 MG/ML 1 ML VIAL IM PRN (00:30)
[2024-05-02] MEDS: HALOPERIDOL LACTATE 5 MG/ML 1 ML VIAL IM STA (00:39)
[2024-05-02] MEDS: METOPROLOL TARTRATE 1 MG/ML VIAL IV STA (00:39)
[2024-05-02 06:23] LABS: Hematocrit (blood only) 32.9 % (42.0-52.0); Mean Corpuscular Hemoglobin 29.1 pg (25.0-34.0); Mean Corpuscular Hgb Conc 33.4 g/dL (32.0-36.0); Mean Platelet Volume 9.6 fL (9.4-12.4); Platelet Count 140 K/uL (130-400); RDW Coefficient of Variation 14.5 % (11.5-14.5); RDW Standard Deviation 46.3 fL (36.4-46.3); Red Blood Count 3.78 M/uL (4.70-6.10); White Blood Count 10.42 K/ul (4.8-10.8)
[2024-05-02 06:41] LABS: BUN Creatinine Ratio 19.2 (10-20); Calcium 8.7 mg/dl (8.6-10.3); Creatinine Clr Calc Pharmacy 37.2 ml/min; Potassium 3.7 mmol/L (3.5-5.1)
--- NOTE | 2024-05-02 07:06 | Hospitalist Progress Note ---
Date of Service May 02, 2024 Assessment & Plan (1) Acute kidney injury superimposed on CKD: (2) Hyperglycemia due to type 2 diabetes mellitus: (3) Weakness: (4) Hypokalemia: (5) Mild cognitive impairment: Plan Patient is a 79-year-old male with Past medical history of hypertension, type 2 diabetes mellitus since 2003, CAD with chronic total occlusion of LAD, carotid artery stenosis status post CEA 1997, dyslipidemia, BPH, gout who comes to the hospital with generalized weakness and multiple falls. MOON on CKD Possible Pyelonephritis history of BPH Creatinine of baseline of 1.6 as of 04/12; presents with creatinine of 2.04--> 1.53--> today up to 1.78 CT headno acute finding Chest x-rayno acute findings Bladder scan > 900 cc; boyce placed with blood-tinged urine No leukocytosis Urine culture pending IV Rocephin started; continue and adjust based on cultures Able to take PO fluids Hold nephrotoxic medications as able; Lasix restarted 05/02 as outlined below Renal US relatively unremarkable CTAP reveals bilateral perinephric edema R>L perinephric edema. Correlate with urinalysis to consider pyelonephritis. 2. Cholelithiasis. Nephro and Urology following; appreciate recommendations Delirium: Generalized weakness: Likely secondary to infection Sundowning identified overnight 05/01; was given Haldol overnight Avoid antipsychotics as able PT/OT eval Urology consult placed; appreciate reccs Zyprexa 2.5 mg QHS added for agitation; Zyprexa 5 mg IM PRN ordered Congestive Heart Failure: Last ECHO per EMR link 04/29/24: LVEF 64%, G1DDX, mild aortic stenosis. BNP from 05/2023 338. on 05/02: 436 CTAP indicates small layering bilateral pleural effusions. Procal 0.91 Takes Lasix 40 mg po daily; has been on hold due to MOON; restarted Lasix on 05/02 at 20 mg; will adjust based on BMP on 05/03 Monitor I/O Hypertension: Chronic Takes amlodipine, Metoprolol and Lisinopril; Lisinopril on hold due to MOON Hypomagnesemia: Serum Mg+ 1.6; replaced with 2G Trend in AM, consider PO if continues to be low Uncontrolled type 2 diabetes mellitus HbA1c of 11.5 in April 2024 Hold home metformin; started on insulin and NovoLog blood sugars during admission have been in 150-200 adaptive physical educator consulted mild cognitive impairment: Head CT with Cerebral atrophy. No acute changes. no elopement concerns per family Does not require family to anticipate or meet his ADL needs at this time FAST scale 4 indicating possibly mild dementia PT/OT consults Hypokalemia: Resolved no ectopy on monitor trend BMP in AM Goutcontinue allopurinol History of CAD with chronic total occlusion of LADcontinue on aspirin, Lipitor DVT prophylaxis heparin Code Status: DNR/DNI. Discussed at length with his at bedside who brought in his living will. I spent a total of 58 minutes coordinating, documenting, and providing care for this patient excluding time spent in the performance of separately billed services or time spent by another provider/QHP. Admission and Anticipated Discharge Date Admission Date: April 30, 2024 Subjective Pt lying in his hospital bed and is restless. Overnight, he appears to have been sundowning with agitation. He was experiencing tachycardia ranging 110-115. Pt with intermittent clarity throughout the day and redirection. Able to deny pain, chest pain, palpitations, SOB, N/V/D. pt at beside and updated throughout the day. She brought in his living will and wanted to change him to a DNR/DNI See plan of care below. Review of Systems Review of Systems: Unobtainable due to cognitive status He is able to state that he is not in pain. He denies chest pain and shortness of breath. Physical Exam Physical Exam: Neuro: AAOx2, PERRLA, no aphagia, memory changes, CNII-XII grossly intact HEENT: head normocephalic, moist mucus membranes CV: S1/S2, (-) M/G/R, (-) edema, cap refill < 3 seconds Resp: Lungs decrease in all rowley. On RA. (-) wheezing GI: Abdomen S/NT/ND, Ax4 bowel sounds, (-) CVA tenderness : Indwelling boyce with blood tinged urine Musculoskeletal: 5/5 B/L UE strength, 5/5 B/L LE strength. No gait disturbance Skin: (-) rashes , (-) erythema. Psych: confused mood Results & Data Results & Data Vital Signs (Past 12 Hours) Vital Signs Temp Pulse Pulse Resp BP BP Pulse Ox 05/02/24 06:32 122 H 05/02/24 03:04 37.1 C 118 H 18 168/71 H 92 05/02/24 00:48 113 H 175/81 H 05/02/24 00:47 113 H 175/81 H 05/02/24 00:39 121 H 05/01/24 22:29 37.3 C 109 H 18 189/80 H 95 05/01/24 21:40 95 H 05/01/24 19:44 37.2 C 79 18 165/67 H 93 05/01/24 19:15 O2 Del Method 05/02/24 06:32 05/02/24 03:04 Room Air 05/02/24 00:48 05/02/24 00:47 05/02/24 00:39 05/01/24 22:29 Room Air 05/01/24 21:40 05/01/24 19:44 Room Air 05/01/24 19:15 Room Air Laboratory Results Short CBC 05/02/24 05/02/24 Range/Units 05:37 15:09 WBC 10.42 9.04 (4.8-10.8) K/ul Hgb 11.0 L 10.9 L (14.0-18.0) g/dl Hct 32.9 L 32.1 L (42.0-52.0) % Plt Count 140 141 (130-400) K/uL BMP 05/02/24 05:37 Sodium 138 Potassium 3.7 Chloride 104 Carbon Dioxide 26 BUN 30 H Creatinine 1.56 H Glucose 152 H Calcium 8.7 Urine 05/02/24 Range/Units 13:30 Urine Color Red Urine Appearance Cloudy A (Clear) Urine pH 5.5 (4.5-7.5) Ur Specific [place] 1.020 (1.000-1.030) Urine Protein 3+ H (Negative) Urine Glucose (UA) Trace H (Negative) Diagnostic Findings Renal Ultrasound 05/02/24 00:00 EXAM: US renal/blad retro comp CLINICAL HISTORY: MOON TECHNIQUE: A renal ultrasound was performed using grayscale and doppler imaging. COMPARISON: No previous studies are available for comparison. FINDINGS: Right Kidney: The right kidney measures 11.8 x 7.4 x 5.3 cm. Multiple anechoic simple renal cysts are seen largest in the lower pole measuring 5.2 x 5.2 x 4.1 cm with another two simple renal cysts measuring less than 1 cm in diameter. No hydronephrosis, calculi, or masses were identified. Renal parenchymal echogenicity is normal. Cortical thickness: Within normal. Renal pelvis within normal. Left Kidney: The left kidney measures 11.47 x 6.8 x 6.5 cm. Limited views. Two simple cysts, the largest seen in mid pole measuring 2.3 x 2. x 2.3 cm hydronephrosis, calculi, or masses were identified. Renal parenchymal echogenicity is normal. Cortical thickness: Within normal. Renal pelvis within normal. Urinary bladder: Folys catheter is seen. The urinary bladder is slightly distended with increased wall thickness measuring 1.25 cm. No calculus or mass is noted in it. Bilateral ureteral jets are not seen. IMPRESSION: 1. Increased urinary bladder wall thickness measures 1.25 cm. Clinical correlation and urinalysis were advised to rule out cystitis. 2. Bilateral simple renal cysts as described. Electronically signed by Alex Pichardo 05-02-2024 08:[address] 05/02/24 11:24 EXAM: CT Abdomen Without Intravenous Contrast INDICATION: Acute kidney insufficiency TECHNIQUE: Axial computed tomography images of the abdomen without intravenous contrast. Sagittal and coronal reformatted images were created and reviewed. This CT exam was performed using one or more of the following dose reduction techniques: automated exposure control, adjustment of the mA and/or kV according to patient size, and/or use of iterative reconstruction technique. COMPARISON: No relevant prior studies available. FINDINGS: Lung bases: No nodule or consolidation. Pleural space: Small layering bilateral pleural effusions noted. Heart: Cardiomegaly and coronary calcification. No pericardial effusion. Liver: Lack of intravenous contrast limits detection of some masses. No abnormality noted. Gallbladder and bile ducts: Notable stones in the gallbladder particularly in the neck. No ductal dilatation or calcification. Pancreas: No pancreatic mass, calcification, inflammation or ductal dilation noted. Spleen: No significant abnormality noted. Adrenals: No significant abnormality noted. Kidneys and ureters: Bilateral perinephric stranding noted right greater than left. Right sided stranding particularly involves the anterior pararenal fascia. No urinary gas. Bilateral renal hypodensities likely reflect simple cysts. No stone. No hydronephrosis. Stomach and bowel: Moderate amounts of stool in the included colonic segments. Minimal prominent small bowel fluid without obstruction. No thickening or inflammatory process. Appendix: Portions of the appendix are identified and appear normal. Intraperitoneal space: No free air. No significant fluid collection. Bones/joints: No acute changes. Soft tissues: No significant abnormality noted. Vasculature: No abnormality noted. No abdominal aortic aneurysm. Lymph nodes: No abnormality noted. No enlarged lymph nodes. IMPRESSION: 1. Bilateral right greater than left perinephric edema. To correlate with urinalysis for pyelonephritis. 2. Cholelithiasis. 3. Small layering bilateral pleural effusions. ACT 112: Negative or not required by law. Electronically signed by Xi Kumar 05-02-2024 12:11 PM
--- NOTE | 2024-05-02 08:15 | Ultrasound Report ---
EXAM: US renal/blad retro comp CLINICAL HISTORY: MOON TECHNIQUE: A renal ultrasound was performed using grayscale and doppler imaging. COMPARISON: No previous studies are available for comparison. FINDINGS: Right Kidney: The right kidney measures 11.8 x 7.4 x 5.3 cm. Multiple anechoic simple renal cysts are seen largest in the lower pole measuring 5.2 x 5.2 x 4.1 cm with another two simple renal cysts measuring less than 1 cm in diameter. No hydronephrosis, calculi, or masses were identified. Renal parenchymal echogenicity is normal. Cortical thickness: Within normal. Renal pelvis within normal. Left Kidney: The left kidney measures 11.47 x 6.8 x 6.5 cm. Limited views. Two simple cysts, the largest seen in mid pole measuring 2.3 x 2. x 2.3 cm hydronephrosis, calculi, or masses were identified. Renal parenchymal echogenicity is normal. Cortical thickness: Within normal. Renal pelvis within normal. Urinary bladder: Folys catheter is seen. The urinary bladder is slightly distended with increased wall thickness measuring 1.25 cm. No calculus or mass is noted in it. Bilateral ureteral jets are not seen. IMPRESSION: 1. Increased urinary bladder wall thickness measures 1.25 cm. Clinical correlation and urinalysis were advised to rule out cystitis. 2. Bilateral simple renal cysts as described. Electronically signed by Alex Pichardo 05-02-2024 08:15 AM
[2024-05-02] MEDS ORDERED: OLANZAPINE 2.5 MG TAB PO PRN (11:20)
--- NOTE | 2024-05-02 12:14 | CT Scan Report ---
EXAM: CT Abdomen Without Intravenous Contrast INDICATION: Acute kidney insufficiency TECHNIQUE: Axial computed tomography images of the abdomen without intravenous contrast. Sagittal and coronal reformatted images were created and reviewed. This CT exam was performed using one or more of the following dose reduction techniques: automated exposure control, adjustment of the mA and/or kV according to patient size, and/or use of iterative reconstruction technique. COMPARISON: No relevant prior studies available. FINDINGS: Lung bases: No nodule or consolidation. Pleural space: Small layering bilateral pleural effusions noted. Heart: Cardiomegaly and coronary calcification. No pericardial effusion. Liver: Lack of intravenous contrast limits detection of some masses. No abnormality noted. Gallbladder and bile ducts: Notable stones in the gallbladder particularly in the neck. No ductal dilatation or calcification. Pancreas: No pancreatic mass, calcification, inflammation or ductal dilation noted. Spleen: No significant abnormality noted. Adrenals: No significant abnormality noted. Kidneys and ureters: Bilateral perinephric stranding noted right greater than left. Right sided stranding particularly involves the anterior pararenal fascia. No urinary gas. Bilateral renal hypodensities likely reflect simple cysts. No stone. No hydronephrosis. Stomach and bowel: Moderate amounts of stool in the included colonic segments. Minimal prominent small bowel fluid without obstruction. No thickening or inflammatory process. Appendix: Portions of the appendix are identified and appear normal. Intraperitoneal space: No free air. No significant fluid collection. Bones/joints: No acute changes. Soft tissues: No significant abnormality noted. Vasculature: No abnormality noted. No abdominal aortic aneurysm. Lymph nodes: No abnormality noted. No enlarged lymph nodes. IMPRESSION: 1. Bilateral right greater than left perinephric edema. To correlate with urinalysis for pyelonephritis. 2. Cholelithiasis. 3. Small layering bilateral pleural effusions. ACT 112: Negative or not required by law. Electronically signed by Xi Kumar 05-02-2024 12:11 PM
[2024-05-02 14:00] LABS: Appearance Urine Cloudy (Clear); Bilirubin Urine Negative (Negative); Blood Urine 3+ (Negative); Color Urine Red; Glucose Urine UA Trace (Negative); Ketones Urine Negative (Negative); Leukocyte Esterase Urine Negative (Negative); Nitrite Urine Negative (Negative); Protein Urine 3+ (Negative); Urobilinogen Urine Negative (Negative); pH Urine 5.5 (4.5-7.5)
[2024-05-02 14:04] LABS: RBC Urine >20 /hpf (0-2)
[2024-05-02 14:07] LABS: Bacteria Urine None Seen (None Seen)
[2024-05-02 15:23] LABS: Hematocrit (blood only) 32.1 % (42.0-52.0); Hemoglobin 10.9 g/dl (14.0-18.0); Mean Corpuscular Hemoglobin 29.8 pg (25.0-34.0); Mean Corpuscular Volume 87.7 fL (80.0-100.0); Mean Platelet Volume 9.4 fL (9.4-12.4); Platelet Count 141 K/uL (130-400); RDW Coefficient of Variation 14.3 % (11.5-14.5); RDW Standard Deviation 46.5 fL (36.4-46.3); Red Blood Count 3.66 M/uL (4.70-6.10); White Blood Count 9.04 K/ul (4.8-10.8)
[2024-05-02] MEDS ORDERED: OLANZapine 10 MG/2.1 ML SDV IM PRN (15:26)
[2024-05-02 15:40] LABS: Calcium 8.5 mg/dl (8.6-10.3); Creatinine Clr Calc Pharmacy 32.6 ml/min; Magnesium 1.6 mg/dl (1.7-2.4); Potassium 3.8 mmol/L (3.5-5.1)
[2024-05-02] MEDS: MAGNESIUM SULFATE / D5W 1 GM/100 ML BAG IV SCH (16:15)
--- NOTE | 2024-05-02 16:15 | Nephrology Consultation ---
Date of Consultation May 02, 2024 Assessment & Plan (1) Acute kidney injury superimposed on CKD: Slight MOON creat 2 on Adx from 1.6 recent blood work. MOON Likely from OTERO and Infection ( ? pyelonephritis) Creat today was 1.5 and 1.7 so not too far from his baseline. NO obstruction with boyce in place. Hold Lisinopril for now. Can restart low dose lasix. Monitor lytes and renal function daily in AM. BP is high but he was very agitated. (2) Bladder outlet obstruction: had 900 ml residual urine and now has boyce. Seen By urology and I reviewed urology note. (3) Pyelonephritis: based on CT findings of Bilateral perinephric stranding . Urine C/s is pending but Blood C/s was negative. Continue Current Abx iv Ceftriaxone Plan A and P discussed with primary service. total time spent 62 mins History of Present Illness Attending Physician: Cierra Madrigal MD History of Present Illness 79/M with hypertension, type 2 diabetes mellitus since 2003, CAD with chronic total occlusion of LAD, carotid artery stenosis status post CEA 1997, dyslipidemia, BPH, gout has CKD baseline creat 1.6. Patient admitted 04/30/24 --came to the hospital with concern of generalized weakness ongoing for last 1 week. Patient reportedly had a mechanical fall due to imbalance 10 days ago. Denies any injury/pain. Day of admission patient felt weaker and had multiple falls which prompted him to come to the ED. patient is confused and agitated and not able to tell any history. at bedside who provided history. He did not have fever, chills, chest pain, shortness of breath, abdominal pain, visual disturbances, weakness/numbness of any body part. Since admission CT done and has Possible Pyelonephritis. urine C/s Pending. Creat was 2 on ADx and then dropped to 1.5 but now went up again to 1.78. He had some IV fluid but not now. had CT abdomen which showed Pl eff and has elevated BNP Found to have urine retention and does have boyce. also seen by Urology. ROS----patient is confused and agitated and not able to tell any history. at bedside who provided history. He did not have fever, chills, chest pain, shortness of breath, abdominal pain, visual disturbances, weakness/numbness of any body part. 12 Systems reviewed and negative Physical Exam Physical Exam: Constitutional: Sedated now as he just got Haldol for Agitation Respiratory: Bilateral Clear Cardiovascular: RRR, no murmur, no edema no JVD Abdomen: soft, nontender Skin: no rashes, warm and dry normal turgor Allergies Allergy/AdvReac Type Severity Reaction Status Date / Time aspirin AdvReac Mild STOMACH Verified 11/15/21 08:03 UPSET Home Medications Medication Instructions Recorded Confirmed Type allopurinol 100 mg tablet 100 mg PO QAM 11/13/18 04/30/24 History aspirin 81 mg tablet,delayed 81 mg PO QAM 11/13/18 05/01/24 History release atorvastatin 80 mg tablet 80 mg PO HS 11/13/18 04/30/24 History lisinopril 40 mg tablet 40 mg PO QAM 11/13/18 04/30/24 History metoprolol succinate 100 mg 150 mg PO QAM 11/13/18 04/30/24 History tablet,extended release 24 hr amlodipine 5 mg tablet 5 mg PO QPM 04/30/24 04/30/24 History furosemide 40 mg tablet 40 mg PO QAM 04/30/24 04/30/24 History insulin glargine 100 unit/mL (3 35 unit subcut QPM 04/30/24 04/30/24 History mL) subcutaneous pen (Basaglar KwikPen U-100 Insulin) metformin 500 mg tablet 500 mg PO BID 04/30/24 04/30/24 History Patient History Medical History Chronic kidney disease stage 3 -- monitoring, [facility] (Dr Penaloza) Gout History of gastroesophageal reflux (GERD) Diabetes mellitus, type 2 niddm 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 JOSEPH Family History Mother Family history of diabetes mellitus Other No family history of adverse response to anesthesia Social History Smoking Status: Former smoker Cigarettes Per Day: 1997; Second Hand Exposure: No; Do You Dip or Chew Tobacco: No; Hx Alcohol Use: No Hx Substance Use: No Preferred Language: Nauruan Communication Ability: Effective Equine Dentist Required: No Beliefs That Will Affect Care: None Current Living Situation: Spouse Feels Safe at Home: Yes Assistive Devices: Denture - Upper Results & Data Vital Signs (Past 12 Hours) Vital Signs Temp Pulse Pulse Pulse Resp BP Pulse Ox 05/02/24 15:51 36.8 C 116 H 16 170/74 H 95 05/02/24 13:49 114 H 05/02/24 12:10 37.1 C 105 H 18 167/78 H 91 05/02/24 09:38 05/02/24 07:46 36.9 C 119 H 20 182/80 H 94 05/02/24 06:32 122 H O2 Del Method 05/02/24 15:51 Room Air 05/02/24 13:49 05/02/24 12:10 Room Air 05/02/24 09:38 Room Air 05/02/24 07:46 Room Air 05/02/24 06:32
[2024-05-02] MEDS: FUROSEMIDE 20 MG TAB PO SCH (16:32)
[2024-05-02] MEDS: OLANZAPINE 2.5 MG TAB PO SCH (20:04)
[2024-05-02] MEDS: amLODIPine BESYLATE 5 MG TAB PO SCH (20:04)
[2024-05-02] MEDS: ACETAMINOPHEN 325 MG TAB PO PRN (20:05)
[2024-05-02] MEDS: LANTUS PER UNIT CHARGE SQ SCH (20:59)
--- NOTE | 2024-05-02 23:13 | Communication Note ---
Date of Service: May 02, 2024 Patient with hematuria as per RN. No unusual pain complaints. Miles catheter may have been pulled earlier due to patient restlessness. AP Traumatic hematuria Hold aspirin and heparin subcu for now.
[2024-05-02 23:45] LABS: Basophils # (auto) 0.01 K/uL (0.00-0.20); Basophils % (auto) 0.1 %; Eosinophils # (auto) 0.04 K/uL (0.00-0.50); Eosinophils % (auto) 0.5 %; Hematocrit (blood only) 34.6 % (42.0-52.0); Hemoglobin 11.4 g/dl (14.0-18.0); Immature Granulocytes # (auto) 0.06 K/uL (0.01-0.20); Immature Granulocytes % (auto) 0.7 %; Lymphocytes # (auto) 0.85 K/uL (1.20-3.40); Lymphocytes % (auto) 9.7 %; Mean Corpuscular Hemoglobin 28.7 pg (25.0-34.0); Mean Corpuscular Hgb Conc 32.9 g/dL (32.0-36.0); Mean Corpuscular Volume 87.2 fL (80.0-100.0); Mean Platelet Volume 9.5 fL (9.4-12.4); Monocytes # (auto) 1.52 K/uL (0.11-0.59); Monocytes % (auto) 17.4 %; Neutrophils # (auto) 6.28 K/uL (1.40-6.50); Neutrophils % (auto) 71.6 %; Platelet Count 133 K/uL (130-400); RDW Coefficient of Variation 14.6 % (11.5-14.5); RDW Standard Deviation 46.6 fL (36.4-46.3); Red Blood Count 3.97 M/uL (4.70-6.10); White Blood Count 8.76 K/ul (4.8-10.8)
[2024-05-03 07:23] LABS: Hematocrit (blood only) 35.4 % (42.0-52.0); Hemoglobin 11.7 g/dl (14.0-18.0); Mean Corpuscular Hemoglobin 28.5 pg (25.0-34.0); Mean Corpuscular Hgb Conc 33.1 g/dL (32.0-36.0); Mean Corpuscular Volume 86.1 fL (80.0-100.0); Mean Platelet Volume 9.6 fL (9.4-12.4); Platelet Count 153 K/uL (130-400); RDW Coefficient of Variation 14.6 % (11.5-14.5); RDW Standard Deviation 46.2 fL (36.4-46.3); Red Blood Count 4.11 M/uL (4.70-6.10); White Blood Count 9.85 K/ul (4.8-10.8)
--- NOTE | 2024-05-03 08:25 | XRay Report ---
EXAM: XR chest 1V portable CLINICAL HISTORY: Pleural effusion. TECHNIQUE: An X-ray image of the chest is obtained in AP projection. COMPARISON: Comparison with the previous study 04/30/2024, basal chest cuts at CT dated 05/02/2024 reviewed. FINDINGS: Pulmonary Parenchyma: Prominent both luigi with perihilar congestion and accentuated basal broncho vascular markings with peribronchial thickening suggesting bronchitis. No evidence of consolidation, collapse, or focal opacities. No pulmonary nodules are identified. left parahilar small nodule which may end on vasculature. No evidence of pleural effusion or pleural thickening. Heart and Mediastinum: Heart size and shape are normal. No mediastinal widening or masses. No hilar or mediastinal lymphadenopathy. Atheromatous calcifications is seen related to aortic knob. Bony Thorax: Bony thorax appears intact without fractures or deformities. Soft Tissues: Soft tissues overlying the chest wall are unremarkable. IMPRESSION: 1. Prominent both luigi with perihilar congestion and accentuated basal broncho vascular markings with peribronchial thickening suggesting bronchitis/ mild congestion, stable. 2. Regression of previously noted right sided fissure, with acute both lateral costophrenic recesses, kindly note that an accumulation of 200 ml of fluid is necessary for the effusion to affect the lateral angles of frontal standing radiographs, so minimal effusion can't be excluded. Electronically signed by Alex Pichardo 05-03-2024 08:25 AM
[2024-05-03 08:29] LABS: Potassium 3.8 mmol/L (3.5-5.1)
[2024-05-03 08:35] LABS: BUN Creatinine Ratio 16.2 (10-20); Creatinine Clr Calc Pharmacy 32.6 ml/min
--- NOTE | 2024-05-03 13:01 | Hospitalist Progress Note ---
Date of Service May 03, 2024 Assessment & Plan (1) Acute kidney injury superimposed on CKD: (2) Hyperglycemia due to type 2 diabetes mellitus: (3) Weakness: (4) Hypokalemia: (5) Mild cognitive impairment: Plan Patient is a 79-year-old male with Past medical history of hypertension, type 2 diabetes mellitus since 2003, CAD with chronic total occlusion of LAD, carotid artery stenosis status post CEA 1997, dyslipidemia, BPH, gout who comes to the hospital with generalized weakness and multiple falls. MOON on CKD Possible Pyelonephritis history of BPH Creatinine of baseline of 1.6, elevated to 2.04 on admission Bladder scan > 900 cc; boyce placed with blood-tinged urine Renal US relatively unremarkable CT with question of possible pyelonephritis without leukocytosis or systemic symptoms UA w/o suggestion of infection, Urine culture NGTD IV Rocephin started; continue (Day 05/12) Hold nephrotoxic medications as able; Lasix restarted 05/02 as outlined below Nephro and Urology following; appreciate recommendations Delirium Generalized weakness CT headno acute finding MRI brain pending Chest x-rayno acute findings UA not suggestive of infection Blood Cx NGTD identified overnight 05/01; was given Haldol overnight Avoid antipsychotics as able PT/OT eval- recommending acute rehab Zyprexa 2.5 mg QHS added for agitation with PRN Zyprexa 5 mg IM PRN ordered Congestive Heart Failure: Last ECHO per EMR link 04/29/24: LVEF 64%, Grade 1 diastolic dysfunction, mild aortic stenosis. BNP from 05/2023 338. on 05/02: 436 CTAP indicates small layering bilateral pleural effusions. Procal 0.91 Takes Lasix 40 mg po daily; has been on hold due to MOON; restarted Lasix on 05/02 at 20 mg; will adjust based on BMP on 05/03 Monitor I/O Sinus tachycardia Pt with noted tachycardia EKG noting sinus tachycardia Likely in setting of acute agitation above On metoprolol succinate 150mg daily Continue to monitor on telemetry Hypertension: Chronic Takes amlodipine, Metoprolol and Lisinopril; Lisinopril on hold due to MOON Hypomagnesemia: replete as needed Uncontrolled type 2 diabetes mellitus HbA1c of 11.5 in April 2024 Hold home metformin; started on insulin and NovoLog family living educator consulted Hypokalemia: Resolved no ectopy on monitor trend BMP in AM Goutcontinue allopurinol History of CAD with chronic total occlusion of LADcontinue on aspirin, Lipitor Diet: DMII/HH DVT prophylaxis heparin Code Status: DNR/DNI. Dispo: acute rehab Admission and Anticipated Discharge Date Admission Date: April 30, 2024 Subjective pt was seen laying in bed,, sitter at bedside. he denied acute concerns. Was working with PT and it was noted that he was having gait issues with tremors and concern for parkinsons Review of Systems Review of Systems: All systems reviewed & are unremarkable except as noted in Subjective Physical Exam Physical Exam: General: Alert, orientedx2. No acute distress Neuro: AAOx2 HEENT: NC/AT CV: RRR Resp: Breath sounds clear bilaterally, no increased effort of breathing Abdomen:Soft, nontender Extremities: No edema in lower extremities bilaterally. Results & Data Results & Data Vital Signs (Past 12 Hours) Vital Signs Temp Pulse Pulse Resp BP BP Pulse Ox 05/03/24 11:00 36.9 C 97 H 18 166/71 H 97 05/03/24 09:50 05/03/24 07:48 36.8 C 111 H 18 162/72 H 97 05/03/24 07:13 111 H 05/03/24 04:51 36.7 C 111 H 18 157/75 H 91 O2 Del Method 05/03/24 11:00 Room Air 05/03/24 09:50 Room Air 05/03/24 07:48 Room Air 05/03/24 07:13 05/03/24 04:51 Room Air Diagnostic Findings Chest X-Ray 04/30/24 16:20 EXAM: Radiograph of the Chest 1 View INDICATION: Weakness TECHNIQUE: Frontal view of the chest. COMPARISON: No relevant prior studies available. FINDINGS: Lungs and pleural spaces: No consolidation or pulmonary edema. No pleural effusion or pneumothorax. Heart: Shape and configuration within normal limits allowing for technique. Mediastinum: Normal contour. Bones/joints: No fracture, erosion or dislocation. Soft tissues: No abnormality noted. No radiopaque foreign body noted. Vasculature: Ectatic calcified aorta. Upper abdomen: 1.4 cm nonspecific calcification noted in the right upper abdomen. IMPRESSION: 1. No acute cardiopulmonary disease. 2. Nonspecific calcification projects in the right upper quadrant. ACT 112: Negative or not required by law. Electronically signed by Xi Kumar 04-30-2024 4:[address] 04/30/24 18:57 EXAM: CT Head Without Intravenous Contrast INDICATION: Progressive weakness and falling. TECHNIQUE: Axial computed tomography images of the head/brain without intravenous contrast. Sagittal and/or coronal reformats are provided. Sagittal and coronal reformatted images were created and reviewed. This CT exam was performed using one or more of the following dose reduction techniques: automated exposure control, adjustment of the mA and/or kV according to patient size, and/or use of iterative reconstruction technique. COMPARISON: No relevant prior studies available. FINDINGS: Limitations: None. Brain and extra-axial spaces: There is age appropriate cortical atrophy and chronic ischemic periventricular white matter hypodensity. No acute infarct, hemorrhage or mass noted. Bones/joints: No acute changes. Soft tissues: No significant abnormality noted. Vasculature: There is atherosclerotic calcification of the intracranial vertebral and carotid arteries. Sinuses: No layering fluid in the visualized portions of the paranasal sinuses. Mastoid air cells: No mastoid effusion. Orbits: No significant abnormality noted. IMPRESSION: Cerebral atrophy. No acute changes. ACT 112: Negative or not required by law. Electronically signed by Xi Kumar 04-30-2024 7:25 PM Renal Ultrasound 05/02/24 00:00 EXAM: US renal/blad retro comp CLINICAL HISTORY: MOON TECHNIQUE: A renal ultrasound was performed using grayscale and doppler imaging. COMPARISON: No previous studies are available for comparison. FINDINGS: Right Kidney: The right kidney measures 11.8 x 7.4 x 5.3 cm. Multiple anechoic simple renal cysts are seen largest in the lower pole measuring 5.2 x 5.2 x 4.1 cm with another two simple renal cysts measuring less than 1 cm in diameter. No hydronephrosis, calculi, or masses were identified. Renal parenchymal echogenicity is normal. Cortical thickness: Within normal. Renal pelvis within normal. Left Kidney: The left kidney measures 11.47 x 6.8 x 6.5 cm. Limited views. Two simple cysts, the largest seen in mid pole measuring 2.3 x 2. x 2.3 cm hydronephrosis, calculi, or masses were identified. Renal parenchymal echogenicity is normal. Cortical thickness: Within normal. Renal pelvis within normal. Urinary bladder: Folys catheter is seen. The urinary bladder is slightly distended with increased wall thickness measuring 1.25 cm. No calculus or mass is noted in it. Bilateral ureteral jets are not seen. IMPRESSION: 1. Increased urinary bladder wall thickness measures 1.25 cm. Clinical correlation and urinalysis were advised to rule out cystitis. 2. Bilateral simple renal cysts as described. Electronically signed by Alex Pichardo 05-02-2024 08:[address] 05/02/24 11:24 EXAM: CT Abdomen Without Intravenous Contrast INDICATION: Acute kidney insufficiency TECHNIQUE: Axial computed tomography images of the abdomen without intravenous contrast. Sagittal and coronal reformatted images were created and reviewed. This CT exam was performed using one or more of the following dose reduction techniques: automated exposure control, adjustment of the mA and/or kV according to patient size, and/or use of iterative reconstruction technique. COMPARISON: No relevant prior studies available. FINDINGS: Lung bases: No nodule or consolidation. Pleural space: Small layering bilateral pleural effusions noted. Heart: Cardiomegaly and coronary calcification. No pericardial effusion. Liver: Lack of intravenous contrast limits detection of some masses. No abnormality noted. Gallbladder and bile ducts: Notable stones in the gallbladder particularly in the neck. No ductal dilatation or calcification. Pancreas: No pancreatic mass, calcification, inflammation or ductal dilation noted. Spleen: No significant abnormality noted. Adrenals: No significant abnormality noted. Kidneys and ureters: Bilateral perinephric stranding noted right greater than left. Right sided stranding particularly involves the anterior pararenal fascia. No urinary gas. Bilateral renal hypodensities likely reflect simple cysts. No stone. No hydronephrosis. Stomach and bowel: Moderate amounts of stool in the included colonic segments. Minimal prominent small bowel fluid without obstruction. No thickening or inflammatory process. Appendix: Portions of the appendix are identified and appear normal. Intraperitoneal space: No free air. No significant fluid collection. Bones/joints: No acute changes. Soft tissues: No significant abnormality noted. Vasculature: No abnormality noted. No abdominal aortic aneurysm. Lymph nodes: No abnormality noted. No enlarged lymph nodes. IMPRESSION: 1. Bilateral right greater than left perinephric edema. To correlate with urinalysis for pyelonephritis. 2. Cholelithiasis. 3. Small layering bilateral pleural effusions. ACT 112: Negative or not required by law. Electronically signed by Xi Kumar 05-02-2024 12:11 PM Chest X-Ray 05/03/24 07:00 EXAM: XR chest 1V portable CLINICAL HISTORY: Pleural effusion. TECHNIQUE: An X-ray image of the chest is obtained in AP projection. COMPARISON: Comparison with the previous study 04/30/2024, basal chest cuts at CT dated 05/02/2024 reviewed. FINDINGS: Pulmonary Parenchyma: Prominent both luigi with perihilar congestion and accentuated basal broncho vascular markings with peribronchial thickening suggesting bronchitis. No evidence of consolidation, collapse, or focal opacities. No pulmonary nodules are identified. left parahilar small nodule which may end on vasculature. No evidence of pleural effusion or pleural thickening. Heart and Mediastinum: Heart size and shape are normal. No mediastinal widening or masses. No hilar or mediastinal lymphadenopathy. Atheromatous calcifications is seen related to aortic knob. Bony Thorax: Bony thorax appears intact without fractures or deformities. Soft Tissues: Soft tissues overlying the chest wall are unremarkable. IMPRESSION: 1. Prominent both luigi with perihilar congestion and accentuated basal broncho vascular markings with peribronchial thickening suggesting bronchitis/ mild congestion, stable. 2. Regression of previously noted right sided fissure, with acute both lateral costophrenic recesses, kindly note that an accumulation of 200 ml of fluid is necessary for the effusion to affect the lateral angles of frontal standing radiographs, so minimal effusion can't be excluded. Electronically signed by Alex Pichardo 05-03-2024 08:25 AM
--- NOTE | 2024-05-03 13:50 | Pharmacy Report ---
Pharmacy Glycemic Short Note 2 - Date of Service May 03, 2024 - Glycemic Short BSG Results (Last 24 hours): 05/02/24 05/02/24 05/02/24 15:09 17:10 20:24 Glucose 209 H POC Glucose 249 H 146 H 05/03/24 05/03/24 05/03/24 06:57 08:15 08:16 Glucose 69 L POC Glucose 68 L* 71 05/03/24 12:16 Glucose POC Glucose 173 H OUTPATIENT ANTIDIABETIC REGIMEN: * A1c = 11.5% (Apr 2024) * Lantus 35 units SQ qPM * Metformin 500 mg PO BID ASSESSMENT: 05/03/24: * Blood sugars labile yesterday, ranging 146-249 mg/dL w/ hypoglycemia this AM (68 mg/dL) * Will reduce basal insulin this evening in response to low BSG this morning, but will maintain current Novolog parameters 05/01/24: * Varinder is a 79 yo T2DM who presented to the hospital with generalized weakness and multiple falls. * Severe hyperglycemia on admission, BSG 394 mg/dL. This quickly corrected after 6 units of Novolog. * Home dose of basal insulin was reduced by about 20% on admission. Fasting BSG of 108 mg/dL. Will slightly reduce further. * Correction factor and carb ratio were loosened this AM due to rapid correction of BSG from 324 to 121 mg/dL. However, lunch BSG then spiked to 250 mg/dL. If post prandial BSGs remain > 200 mg/dL, correction factor and carb ratio will be tightened. PLAN FOR INPATIENT GLYCEMIC CONTROL: * Hold outpatient oral diabetes medications * Basal insulin - decrease * Lantus 15-20-25 units SC HS (see EHR for details) * Bolus insulin * NovoLog per scale ACHS or Q6hrs while NPO * Goal Range: Low 110 mg/dL - High 140 mg/dL * Correction Factor: 25 mg/dL/unit * Nutritional / Prandial insulin per carb ratio of 1 unit per 8 grams CHO consumed
[2024-05-03] MEDS: GADOBUTROL 65ML VIAL IV ONE (18:57)
--- NOTE | 2024-05-03 20:34 | Magnetic Resonance Report ---
EXAM: MR brain wo/w con CLINICAL HISTORY: gait dysfunction, AMS TECHNIQUE: Different pulse sequences were performed in different planes for the brain without and with GD-DTPA injection. intravenous contrast was administered. Images were sent through PACs for interpretation. COMPARISON: CT dated 04/30/2024. FINDINGS: No hyperacute or acute infarctions could be detected. Altered deep white matter signals are seen at the forceps minor, forceps major, periventricular, and centrum semiovale regions. These exhibit bright signals on T2 and FLAIR WI and intermediate signals on T1 WI. Findings suggest consequences of small vessel disease, e.g., hypertensive and/or diabetic vasculopathy. Age-appropriate degenerative involutional changes are denoted by symmetrical dilatation of the ventricular system, prominent cortical sulci, sylvian fissures, cerebellar, vermian folia, and basal cisterns. Upward bowing of the corpus callosum and more dilation of the cerebral ventricles out of proportion to the Sulcal dilation May suggest normal pressure hydrocephalus. Normal MRI appearance of the cerebellar parenchymal signals. Normal MRI appearance of the central lozada matter aggregates. Normal size and configuration of the cerebral ventricles. Normal MRI appearance of different anatomical parts of the brain stem, namely the midbrain, gallito, and medulla oblongata. Normal MRI appearance of the petrous temporal bones, brainstem, vestibule cochlear nerves, and cerebellopontine angles with no definite masses. No shift of midline structures. No intracerebral or extra-axial hematomas or masses. Normal MRI appearance of orbital structures, both globes, optic nerves, optic chiasm, optic tracts and radiations. The scanned paranasal sinuses are unremarkable. Bilateral cataract surgery. No enhancing supra or infratentorial masses. IMPRESSION: 1. No hyperacute or acute infarctions. 2. No intracerebral or extra axial hematoma. 3. Altered deep white matter signals with anatomical distribution and imaging features consistent with the consequences of small vessel disease, e.g., hypertensive and/or diabetic vasculopathy. ([place], grade 2). 4. Age-appropriate degenerative involutional changes with features suggest normal pressure hydrocephalus concerning the given history of gait disturbance. Correlation With the rest of the Items of Edi Hakim syndrome, namely cognitive dysfunction and loss of sphincter control, and CSF flow measures study, if clinically warranted. 5. No enhancing supra or infratentorial masses. 6. The comparison matches the CT findings. Electronically signed by Alex Pichardo 05-03-2024 8:34 PM
[2024-05-03] MEDS: LANTUS PER UNIT CHARGE SQ SCH (20:38)
--- NOTE | 2024-05-03 21:56 | Nephrology Progress Note ---
Date of Service May 03, 2024 Assessment & Plan (1) Acute kidney injury superimposed on CKD: Plan: Slight MOON creat 1.8 today from 1.6 on recent blood work. MOON Likely from OTERO +/- Infection ( ? pyelonephritis) Creat today was 1.7 so not too far from his baseline. NO obstruction with boyce in place. Hold Lisinopril for now. >>cont low dose lasix. Monitor lytes and renal function daily in AM. BP is high agian today but a bit better this evening (2) Bladder outlet obstruction: Plan: had 900 ml residual urine and now has boyce. (3) Pyelonephritis: Plan: based on CT findings of Bilateral perinephric stranding pyelonephrisit is a POSSIBLE dx. Urine and Blood Cxs negative. abtx as per primary service Admission and Anticipated Discharge Date Admission Date: April 30, 2024 Subjective delayed note, entered for 1915 visit. pt w/ sitter; denies sob or pain; working at [facility] combo of psych meds Review of Systems 2 Review of Systems: All systems reviewed & are unremarkable except as noted in Subjective Physical Exam 2 Constitutional: well developed, well nourished, + thin and + frail appearing; no acute distress Eyes: EOM intact bilaterally ENMT: Mouth: + dry oral mucous membranes Respiratory: normal respiratory effort Auscultation: + diminished lung sounds Cardiovascular: Rate/Rhythm: regular rhythm and + tachycardic Extremities: no edema Gastrointestinal (Abdomen): Inspection/Auscultation: normal bowel sounds P ercussion/Palpation: abdomen soft; abdomen nontender Musculoskeletal: Extremities: strength 5/5 throughout Skin: no rashes, warm and dry Neurologic: prieto, fluent speech, no tremor Results & Data Vital Signs (Past 12 Hours) Vital Signs Temp Pulse Pulse Resp BP Pulse Ox O2 Del Method 05/03/24 21:48 36.6 C 113 H 18 143/70 H 93 Room Air 05/03/24 19:12 36.9 C 114 H 16 149/70 H 95 Room Air 05/03/24 15:48 18 05/03/24 15:40 37.4 C 117 H 21 153/69 H 93 Room Air 05/03/24 13:57 113 H 05/03/24 11:00 36.9 C 97 H 18 166/71 H 97 Room Air 05/03/24 09:50 Room Air Laboratory Results 05/03/24 06:57 05/03/24 06:57
[2024-05-04 02:05] LABS: Adenovirus PCR Not Detected (NotDetected); Bordetella parapertussis PCR Not Detected (NotDetected); Bordetella pertussis PCR Not Detected (NotDetected); Chlamydia pneumoniae PCR Not Detected (NotDetected); Coronavirus 229E PCR Not Detected (NotDetected); Coronavirus CoV-2 (COVID19)PCR Not Detected (NotDetected); Coronavirus HKU1 PCR Not Detected (NotDetected); Coronavirus NL63 PCR Not Detected (NotDetected); Coronavirus OC43PCR Not Detected (NotDetected); Human Metapneumovirus PCR Not Detected (NotDetected); Influenza A PCR Not Detected (NotDetected); Influenza B PCR Not Detected (NotDetected); Mycoplasma pneumoniae PCR Not Detected (NotDetected); Parainfluenza Virus 1 PCR Not Detected (NotDetected); Parainfluenza Virus 2 PCR Not Detected (NotDetected); Parainfluenza Virus 3 PCR Not Detected (NotDetected); Parainfluenza Virus 4 PCR Not Detected (NotDetected); Respiratory Syncytial VirusPCR Not Detected (NotDetected); Rhinovirus/Enterovirus PCR Not Detected (NotDetected)
[2024-05-04] MEDS ORDERED: guaiFENesin SUGAR FREE 200 MG/10 ML UDC PO PRN (03:14)
[2024-05-04] MEDS: METOPROLOL TARTRATE 1 MG/ML VIAL IV STA (03:26)
[2024-05-04] MEDS: POTASSIUM CHLORIDE CRTAB 20 MEQ TABCR PO STA (03:26)
--- NOTE | 2024-05-04 06:33 | Communication Note ---
Date of Service: May 04, 2024 Code purple called at 6:30 AM. Sudden bradycardia on the monitor heart rate 40s following tachycardia 110s. Patient with congestion relieved by suctioning in a.m. as per RN few hours ago. No CPR done due to DNR CODE STATUS. Patient pronounced at 6:40 AM. Patient updated over the phone of developments. Informed patient of unclear reason for sudden demise. Patient will discuss with family regarding medical autopsy.
--- NOTE | 2024-05-04 06:49 | Death Pronouncement Note ---
Date of Service May 04, 2024 Pronouncement Note Admission Date April 30, 2024 Date and Time of Date of : 05/04/24 Time of : 06:40 Additional Data Confirmation of : no pulse, no respirations, no heart sounds and pupils fixed and dilated Attending physician: Cierra Madrigal MD Supervising Physician Co-Signing Physician Notes Discharge summary and certificate to be completed by Dr. Madrigal.
--- NOTE | 2024-05-04 08:31 | Discharge Summary ---
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 He was treated for Acute Kidney Injury in the setting of known Chronic Kidney Disease. He had a boyce catheter placed on admission as he was bladder scanned and was retaining greater than 900cc of urine. Hematuria was noted. Renal ultrasound was unremarkable, CT abd/pelvis with a question of pyelonephritis however pt with UA unremarkable for infection, urine culture with no growth. He was however treated with IV Rocephin empirically. Urology and Nephrology were consulted for the urinary retention and kidney injury respectively. There was also concern after working with physical therapy that he might have a developing neurological disorder. History noting progressing weakness, developing tremors, episodes of confusion, shuffling gait that started about 6 months ago per his . He had an episode of Delirium overnight on 05/01/24 requiring IM medications to help. Head CT was unremarkable for acute changes and Brain MRI noted normal pressure hydrocephalus changes. Neurology was consulted for further recommendations. Physical therapy recommending an acute rehab stay upon discharge. Pt was a diabetic with recent hemoglobin a1c of 11.5 indicating that his glucose levels were not controlled. He had a history of chronic near-total occlusion of his left anterior descending artery. Was being medically managed by cardiology. Also has a history of congestive heart failure with preserved ejection fraction and mild aortic stenosis. Was treated with lasix. Chronic history of hypertension that was being managed with three medications. Pt on 05/04/24 at 6:40AM after suddenly moving from tachycardia to bradycardia on telemetry. Per nursing staff overnight, pt required suctioning of his airway overnight and was very lucid. An autopsy was requested by the family and was completed due to the sudden nature of his . Preliminary Autopsy results noting due to severe cardiac disease likely causing a fatal arrhythmia. Diagnoses were listed as : 1. Cardiomegaly, 480g 2. Severe atherosclerotic coronary artery disease involving all 3 major cardiac vessels 3. Pulmonary congestion, bilateral. Pt had a known history of chronic total occlusion of his LAD that was being medically managed for years as well as a history of congestive heart failure. The autopsy results also listed diagnoses of severe diffuse atherosclerosis in the aorta as well as evidence of hemorrhagic cystitis. No evidence of pyelonephritis. Autopsy results were communicated to the patient's on 05/04/24. Notes For Next Care Provider Pt on 05/04/24 at 6:40AM. Autopsy was completed with findings above. Medication Changes From Visit None Admission HPI Per Admitting Provider History obtained from chart review and interview with the patient Past medical history of hypertension, type 2 diabetes mellitus since 2003, CAD with chronic total occlusion of LAD, carotid artery stenosis status post CEA 1997, dyslipidemia, BPH, gout Patient came to the hospital with concern of generalized weakness ongoing for last 1 week. Patient reportedly had a mechanical fall due to imbalance last Friday; denies any injury/pain. Today, patient feels weaker; had multiple falls which prompted him to come to the ED He denies fever, chills, chest pain, shortness of breath, abdominal pain, visual disturbances, weakness/numbness of any body part. Social history; former smoker for 30 years; quit in 1997 Baseline creatinine of 1.6 in April 12, 2024 HbA1c of 11.5; in April 2024 Meds include allopurinol 100 mg once a day, metoprolol ER 100 mg 1 and half tablets, Lipitor 80 mg, amlodipine 5 mg, metformin 500 mg twice daily, Lasix 40 mg once a day, lisinopril 40 mg once a day, insulin glargine 35 units every evening, aspirin 81 mg once a day Admission Exam Per Admitting Provider Constitutional: Alert oriented x 3; appears slightly tired. Appropriately answering questions. Respiratory: Bilateral vesicular breath sound. Cardiovascular: RRR, no murmur, no edema Vessels: no JVD or carotid bruit Chest: normal inspection of chest Abdomen: normal bowel sounds, soft, nontender, no hepatosplenomegaly Musculoskeletal: no cyanosis or clubbing, extremities motor strength 5/5 Skin: no rashes, warm and dry normal turgor Neurologic: PERRLA, EOMI intact, no facial palsy, no dysarthria, cranial nerve intact. Strength in all extremity5/5; joint position sense of lower extremity abnormal. Discharge Exam Pt overnight Updated Medication List Medication Instructions Recorded Confirmed Type allopurinol 100 mg tablet 100 mg PO QAM 11/13/18 04/30/24 History aspirin 81 mg tablet,delayed 81 mg PO QAM 11/13/18 05/01/24 History release atorvastatin 80 mg tablet 80 mg PO HS 11/13/18 04/30/24 History lisinopril 40 mg tablet 40 mg PO QAM 11/13/18 04/30/24 History metoprolol succinate 100 mg 150 mg PO QAM 11/13/18 04/30/24 History tablet,extended release 24 hr amlodipine 5 mg tablet 5 mg PO QPM 04/30/24 04/30/24 History furosemide 40 mg tablet 40 mg PO QAM 04/30/24 04/30/24 History insulin glargine 100 unit/mL (3 35 unit subcut QPM 04/30/24 04/30/24 History mL) subcutaneous pen (Basaglar KwikPen U-100 Insulin) metformin 500 mg tablet 500 mg PO BID 04/30/24 04/30/24 History Hospital Stay Data Consultations 04/30/24 19:31 ED Decision to Admit Stat 05/01/24 08:02 Consult Urology Routine 05/02/24 13:08 Consult Nephrology Routine 05/03/24 15:47 Consult Neurology Routine Diagnostic Imagining Performed 04/30/24 18:57 CT head/brain wo con Stat 05/02/24 US renal/blad retro comp Routine 05/02/24 11:24 CT abdomen wo con Routine 05/03/24 16:17 MRI Brain [MR brain wo/w con] Urgent Chest X-Ray 04/30/24 16:20 EXAM: Radiograph of the Chest 1 View INDICATION: Weakness TECHNIQUE: Frontal view of the chest. COMPARISON: No relevant prior studies available. FINDINGS: Lungs and pleural spaces: No consolidation or pulmonary edema. No pleural effusion or pneumothorax. Heart: Shape and configuration within normal limits allowing for technique. Mediastinum: Normal contour. Bones/joints: No fracture, erosion or dislocation. Soft tissues: No abnormality noted. No radiopaque foreign body noted. Vasculature: Ectatic calcified aorta. Upper abdomen: 1.4 cm nonspecific calcification noted in the right upper abdomen. IMPRESSION: 1. No acute cardiopulmonary disease. 2. Nonspecific calcification projects in the right upper quadrant. ACT 112: Negative or not required by law. Electronically signed by Xi Kumar 04-30-2024 4:[address] 04/30/24 18:57 EXAM: CT Head Without Intravenous Contrast INDICATION: Progressive weakness and falling. TECHNIQUE: Axial computed tomography images of the head/brain without intravenous contrast. Sagittal and/or coronal reformats are provided. Sagittal and coronal reformatted images were created and reviewed. This CT exam was performed using one or more of the following dose reduction techniques: automated exposure control, adjustment of the mA and/or kV according to patient size, and/or use of iterative reconstruction technique. COMPARISON: No relevant prior studies available. FINDINGS: Limitations: None. Brain and extra-axial spaces: There is age appropriate cortical atrophy and chronic ischemic periventricular white matter hypodensity. No acute infarct, hemorrhage or mass noted. Bones/joints: No acute changes. Soft tissues: No significant abnormality noted. Vasculature: There is atherosclerotic calcification of the intracranial vertebral and carotid arteries. Sinuses: No layering fluid in the visualized portions of the paranasal sinuses. Mastoid air cells: No mastoid effusion. Orbits: No significant abnormality noted. IMPRESSION: Cerebral atrophy. No acute changes. ACT 112: Negative or not required by law. Electronically signed by Xi Kumar 04-30-2024 7:25 PM Renal Ultrasound 05/02/24 00:00 EXAM: US renal/blad retro comp CLINICAL HISTORY: MOON TECHNIQUE: A renal ultrasound was performed using grayscale and doppler imaging. COMPARISON: No previous studies are available for comparison. FINDINGS: Right Kidney: The right kidney measures 11.8 x 7.4 x 5.3 cm. Multiple anechoic simple renal cysts are seen largest in the lower pole measuring 5.2 x 5.2 x 4.1 cm with another two simple renal cysts measuring less than 1 cm in diameter. No hydronephrosis, calculi, or masses were identified. Renal parenchymal echogenicity is normal. Cortical thickness: Within normal. Renal pelvis within normal. Left Kidney: The left kidney measures 11.47 x 6.8 x 6.5 cm. Limited views. Two simple cysts, the largest seen in mid pole measuring 2.3 x 2. x 2.3 cm hydronephrosis, calculi, or masses were identified. Renal parenchymal echogenicity is normal. Cortical thickness: Within normal. Renal pelvis within normal. Urinary bladder: Folys catheter is seen. The urinary bladder is slightly distended with increased wall thickness measuring 1.25 cm. No calculus or mass is noted in it. Bilateral ureteral jets are not seen. IMPRESSION: 1. Increased urinary bladder wall thickness measures 1.25 cm. Clinical correlation and urinalysis were advised to rule out cystitis. 2. Bilateral simple renal cysts as described. Electronically signed by Alex Pichardo 05-02-2024 08:[address] 05/02/24 11:24 EXAM: CT Abdomen Without Intravenous Contrast INDICATION: Acute kidney insufficiency TECHNIQUE: Axial computed tomography images of the abdomen without intravenous contrast. Sagittal and coronal reformatted images were created and reviewed. This CT exam was performed using one or more of the following dose reduction techniques: automated exposure control, adjustment of the mA and/or kV according to patient size, and/or use of iterative reconstruction technique. COMPARISON: No relevant prior studies available. FINDINGS: Lung bases: No nodule or consolidation. Pleural space: Small layering bilateral pleural effusions noted. Heart: Cardiomegaly and coronary calcification. No pericardial effusion. Liver: Lack of intravenous contrast limits detection of some masses. No abnormality noted. Gallbladder and bile ducts: Notable stones in the gallbladder particularly in the neck. No ductal dilatation or calcification. Pancreas: No pancreatic mass, calcification, inflammation or ductal dilation noted. Spleen: No significant abnormality noted. Adrenals: No significant abnormality noted. Kidneys and ureters: Bilateral perinephric stranding noted right greater than left. Right sided stranding particularly involves the anterior pararenal fascia. No urinary gas. Bilateral renal hypodensities likely reflect simple cysts. No stone. No hydronephrosis. Stomach and bowel: Moderate amounts of stool in the included colonic segments. Minimal prominent small bowel fluid without obstruction. No thickening or inflammatory process. Appendix: Portions of the appendix are identified and appear normal. Intraperitoneal space: No free air. No significant fluid collection. Bones/joints: No acute changes. Soft tissues: No significant abnormality noted. Vasculature: No abnormality noted. No abdominal aortic aneurysm. Lymph nodes: No abnormality noted. No enlarged lymph nodes. IMPRESSION: 1. Bilateral right greater than left perinephric edema. To correlate with urinalysis for pyelonephritis. 2. Cholelithiasis. 3. Small layering bilateral pleural effusions. ACT 112: Negative or not required by law. Electronically signed by Xi Kumar 05-02-2024 12:11 PM Chest X-Ray 05/03/24 07:00 EXAM: XR chest 1V portable CLINICAL HISTORY: Pleural effusion. TECHNIQUE: An X-ray image of the chest is obtained in AP projection. COMPARISON: Comparison with the previous study 04/30/2024, basal chest cuts at CT dated 05/02/2024 reviewed. FINDINGS: Pulmonary Parenchyma: Prominent both luigi with perihilar congestion and accentuated basal broncho vascular markings with peribronchial thickening suggesting bronchitis. No evidence of consolidation, collapse, or focal opacities. No pulmonary nodules are identified. left parahilar small nodule which may end on vasculature. No evidence of pleural effusion or pleural thickening. Heart and Mediastinum: Heart size and shape are normal. No mediastinal widening or masses. No hilar or mediastinal lymphadenopathy. Atheromatous calcifications is seen related to aortic knob. Bony Thorax: Bony thorax appears intact without fractures or deformities. Soft Tissues: Soft tissues overlying the chest wall are unremarkable. IMPRESSION: 1. Prominent both luigi with perihilar congestion and accentuated basal broncho vascular markings with peribronchial thickening suggesting bronchitis/ mild congestion, stable. 2. Regression of previously noted right sided fissure, with acute both lateral costophrenic recesses, kindly note that an accumulation of 200 ml of fluid is necessary for the effusion to affect the lateral angles of frontal standing radiographs, so minimal effusion can't be excluded. Electronically signed by Alex Pichardo 05-03-2024 08:25 AM Brain MRI 05/03/24 16:17 EXAM: MR brain wo/w con CLINICAL HISTORY: gait dysfunction, AMS TECHNIQUE: Different pulse sequences were performed in different planes for the brain without and with GD-DTPA injection. intravenous contrast was administered. Images were sent through PACs for interpretation. COMPARISON: CT dated 04/30/2024. FINDINGS: No hyperacute or acute infarctions could be detected. Altered deep white matter signals are seen at the forceps minor, forceps major, periventricular, and centrum semiovale regions. These exhibit bright signals on T2 and FLAIR WI and intermediate signals on T1 WI. Findings suggest consequences of small vessel disease, e.g., hypertensive and/or diabetic vasculopathy. Age-appropriate degenerative involutional changes are denoted by symmetrical dilatation of the ventricular system, prominent cortical sulci, sylvian fissures, cerebellar, vermian folia, and basal cisterns. Upward bowing of the corpus callosum and more dilation of the cerebral ventricles out of proportion to the Sulcal dilation May suggest normal pressure hydrocephalus. Normal MRI appearance of the cerebellar parenchymal signals. Normal MRI appearance of the central lozada matter aggregates. Normal size and configuration of the cerebral ventricles. Normal MRI appearance of different anatomical parts of the brain stem, namely the midbrain, gallito, and medulla oblongata. Normal MRI appearance of the petrous temporal bones, brainstem, vestibule cochlear nerves, and cerebellopontine angles with no definite masses. No shift of midline structures. No intracerebral or extra-axial hematomas or masses. Normal MRI appearance of orbital structures, both globes, optic nerves, optic chiasm, optic tracts and radiations. The scanned paranasal sinuses are unremarkable. Bilateral cataract surgery. No enhancing supra or infratentorial masses. IMPRESSION: 1. No hyperacute or acute infarctions. 2. No intracerebral or extra axial hematoma. 3. Altered deep white matter signals with anatomical distribution and imaging features consistent with the consequences of small vessel disease, e.g., hypertensive and/or diabetic vasculopathy. ([place], grade 2). 4. Age-appropriate degenerative involutional changes with features suggest normal pressure hydrocephalus concerning the given history of gait disturbance. Correlation With the rest of the Items of Edi Hakim syndrome, namely cognitive dysfunction and loss of sphincter control, and CSF flow measures study, if clinically warranted. 5. No enhancing supra or infratentorial masses. 6. The comparison matches the CT findings. Electronically signed by Alex Pichardo 05-03-2024 8:34 PM Total Time Total Time Spent Total Time Spent (In Minutes): 60
--- NOTE | 2024-05-07 07:36 | Coding Query ---
CODING QUERY To promote full compliance with coding requirements relating to patient care, provider participation is requested in all cases of marketing trainee uncertainty. Please assist us with the question(s) below: Coding Question(s): The Certificate documents Cardiac Arrest. Please specify below, in your clinical opinion, the most likely cause of Cardiac Arrest: ( ) Cardiac Arrest most likely due to a possible cause. Please Specify the possible cause: (x ) Cardiac Arrest with unknown possible cause Physician's Response(s): Thank you Paula Wise Principal Diagnosis: "that condition established after study, to be chiefly responsible for occasioning the admission of the patient to the hospital for care." Co-Existing Principal Diagnosis: "when two or more diagnoses equally meet the criteria for principal diagnosis as determined by the circumstances of admission, diagnostic work up, and/or therapy provided, and the Alphabetic Index, Tabular List, or another coding guideline does not provide sequencing direction, any one of the diagnoses may be sequenced first." "When the physician has documented what appears to be a current diagnosis in the body of the record, but has not included the diagnosis in the final diagnostic statement, the physician should be asked whether the diagnosis should be added." (Source [facility] 2 QTR90. p3-4) BA
== END 2024-05-04 10:00 | disposition expired | DRG 683 ==
LOC: ED 16:09 → EDINP 20:40 → 2N 21:34